=== PATIENT | male | born 1940 | race Caucasian/White ===

== ENCOUNTER 2017-04-26 19:02 | Observation (INO) | payer BC, OTHER ==
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
[2017-04-26 20:08] LABS: BASOPHIL 0.5 % (0-2.0); EOSINOPHIL 1.2 % (0-4.5); MCH 32.6 pg (25.7-33.7); MEAN CELL VOLUME 95.7 fl (80-96); MEAN PLT VOLUME 8.8 fl (7.5-11.1); NEUTROPHILS 59.3 % (42.8-82.8); PLATELET COUNT 147 K/MM3 (134-434); RDW 13.4 % (11.9-15.9)
[2017-04-26 20:22] LABS: INR 1.31 (0.82-1.09); PROTHROMBIN TIME (PATIENT) 14.5 SEC (9.98-11.88)
[2017-04-26 20:29] LABS: ALBUMIN 3.4 g/dl (3.4-5.0); ALK PHOS 69 U/L (45-117); ANION GAP 5 (8-16); BILIRUBIN,TOTAL 0.4 mg/dL (0.2-1.0); CALCIUM 8.8 mg/dL (8.5-10.1); CO2 30 mmol/L (21-32); CREATININE 1.1 mg/dL (0.7-1.3); GLUCOSE,RANDOM 122 mg/dL (74-106); SGOT/AST 16 U/L (15-37); SGPT/ALT 8 U/L (12-78); TOT PROT 6.8 g/dl (6.4-8.2)
[2017-04-26 20:44] LABS: URINE APPEARANCE CLEAR; URINE BILIRUBIN NEGATIVE (NEGATIVE); URINE BLOOD NEGATIVE (NEGATIVE); URINE COLOR YELLOW; URINE GLUCOSE (UA) NEGATIVE (NEGATIVE); URINE KETONE TRACE (NEGATIVE); URINE LEUK ESTERASE NEGATIVE (NEGATIVE); URINE NITRITE NEGATIVE (NEGATIVE); URINE PROTEIN NEGATIVE (NEGATIVE); URINE UROBILINOGEN NEGATIVE mg/dL (0.2-1.0)
[2017-04-26] MEDS ORDERED: SODIUM CHLORIDE 500 ML IV STA (21:13)
[2017-04-26] MEDS ORDERED: ENOXAPARIN NA (PORCINE) 60 MG/0.6 ML DISP.SYRIN SQ ONE (23:45)
[2017-04-26] MEDS ORDERED: ENOXAPARIN NA (PORCINE) 60 MG/0.6 ML DISP.SYRIN SQ SCH (23:45)
[2017-04-27] MEDS ORDERED: MECLIZINE HCL 12.5 MG TABLET PO PRN (00:19)
[2017-04-27] MEDS ORDERED: WARFARIN NA 1 MG TABLET (FP) PO ONE (00:19)
[2017-04-27] MEDS ORDERED: ENOXAPARIN NA (PORCINE) 60 MG/0.6 ML DISP.SYRIN SQ ONE (00:22)
[2017-04-27] MEDS ORDERED: WARFARIN NA 1 MG TABLET (FP) ONE (00:22)
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
[2017-04-27 01:51] VITALS: BMI 21.8
[2017-04-27] MEDS ORDERED: FLU VACCINE QUAD 60 MCG/0.5 ML (MDV 17-18) IM ONE (01:55)
[2017-04-27] MEDS: ACETAMINOPHEN 325 MG TABLET (FP) PO PRN (06:31)
[2017-04-27] MEDS: CARBIDOPA/LEVODOPA 25/100 TABLET (FP) PO SCH ×6 (06:31→21:56)
[2017-04-27 07:28] LABS: BASOPHIL 0.6 % (0-2.0); EOSINOPHIL 1.1 % (0-4.5); MCH 31.8 pg (25.7-33.7); MCHC 33.3 g/dl (32.0-35.9); MEAN CELL VOLUME 95.6 fl (80-96); MEAN PLT VOLUME 9.2 fl (7.5-11.1); NEUTROPHILS 63.6 % (42.8-82.8); PLATELET COUNT 158 K/MM3 (134-434); RDW 13.5 % (11.9-15.9); WHITE BLOOD COUNT 6.8 K/mm3 (4.0-10.0)
[2017-04-27 07:44] LABS: INR 1.22 (0.82-1.09); PROTHROMBIN TIME (PATIENT) 13.5 SEC (9.98-11.88)
[2017-04-27 08:14] LABS: ANION GAP 5 (8-16); CO2 29 mmol/L (21-32); CREATININE 0.9 mg/dL (0.7-1.3); GLUCOSE,RANDOM 99 mg/dL (74-106)
[2017-04-27] MEDS ORDERED: CARBIDOPA/LEVODOPA 25/100 TABLET (FP) PO SCH ×2 (10:00→22:00)
[2017-04-27] MEDS: LOSARTAN POTASSIUM 25 MG TABLET PO SCH (10:27)
[2017-04-27] MEDS: CARVEDILOL 3.125 MG TABLET (FP) PO SCH ×2 (10:27→21:55)
[2017-04-27] MEDS: ENOXAPARIN NA (PORCINE) 60 MG/0.6 ML DISP.SYRIN SQ SCH ×2 (10:27→21:54)
[2017-04-27] MEDS: FUROSEMIDE 40 MG TABLET (FP) PO SCH (10:27)
[2017-04-27] MEDS: clonazePAM 0.5 MG TABLET PO SCH (10:27)
[2017-04-27] MEDS ORDERED: PT OWN MED DRAWER 7, Y5N ONE (10:28)
--- NOTE | 2017-04-27 11:04 | EKG ---
Test Reason : Blood Pressure : / mmHG Vent. Rate : 061 BPM Atrial Rate : 061 BPM P-R Int : 188 ms QRS Dur : 078 ms QT Int : 444 ms P-R-T Axes : 073 037 064 degrees QTc Int : 446 ms Atrial-paced rhythm ANTEROSEPTAL INFARCT , AGE UNDETERMINED POOR R WAVE PROGRESSION ABNORMAL ECG NO PREVIOUS ECGS AVAILABLE Confirmed by TERRELL ROWLEY MD ([id number]) on 04/27/2017 11:04:31 AM Referred By: Confirmed By:TERRELL ROWLEY MD
[2017-04-27] MEDS: WARFARIN NA 2 MG TABLET (UD) PO SCH (17:58)
[2017-04-28] MEDS: CARBIDOPA/LEVODOPA 25/100 TABLET (FP) PO SCH ×5 (06:36→22:10)
[2017-04-28 08:32] LABS: INR 1.45 (0.82-1.09); PROTHROMBIN TIME (PATIENT) 16.1 SEC (9.98-11.88)
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
[2017-04-28] MEDS: clonazePAM 0.5 MG TABLET PO SCH (11:14)
[2017-04-28] MEDS: CARVEDILOL 3.125 MG TABLET (FP) PO SCH ×2 (11:14→22:11)
[2017-04-28] MEDS: FUROSEMIDE 40 MG TABLET (FP) PO SCH (11:14)
[2017-04-28] MEDS: ENOXAPARIN NA (PORCINE) 60 MG/0.6 ML DISP.SYRIN SQ SCH ×2 (11:14→22:10)
[2017-04-28] MEDS: LOSARTAN POTASSIUM 25 MG TABLET PO SCH (11:15)
[2017-04-28] MEDS: WARFARIN NA 2 MG TABLET (UD) PO SCH (18:49)
[2017-04-29] MEDS: CARBIDOPA/LEVODOPA 25/100 TABLET (FP) PO SCH ×5 (06:01→21:52)
[2017-04-29 07:20] LABS: INR 1.73 (0.82-1.09); PROTHROMBIN TIME (PATIENT) 19.3 SEC (9.98-11.88)
[2017-04-29] MEDS: clonazePAM 0.5 MG TABLET PO SCH (09:25)
[2017-04-29] MEDS: CARVEDILOL 3.125 MG TABLET (FP) PO SCH ×2 (09:25→21:52)
[2017-04-29] MEDS: ASCORBIC ACID 500 MG TABLET (FP) PO SCH (09:25)
[2017-04-29] MEDS: LOSARTAN POTASSIUM 25 MG TABLET PO SCH (09:25)
[2017-04-29] MEDS: FUROSEMIDE 40 MG TABLET (FP) PO SCH (09:26)
[2017-04-29] MEDS: MULTIVITAMINS (DAILY MVI) TABLET (FP) PO SCH (09:26)
[2017-04-29] MEDS: AMINO ACIDS/PROTEIN HYDROLYS 30 ML LIQUID.PKT PO SCH (09:26)
[2017-04-29] MEDS: ENOXAPARIN NA (PORCINE) 60 MG/0.6 ML DISP.SYRIN SQ SCH ×2 (10:15→21:53)
[2017-04-29] MEDS: WARFARIN NA 2 MG TABLET (UD) PO SCH (17:41)
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
[2017-04-30] MEDS: CARBIDOPA/LEVODOPA 25/100 TABLET (FP) PO SCH ×5 (06:29→21:44)
[2017-04-30 07:49] LABS: INR 2.22 (0.82-1.09); PROTHROMBIN TIME (PATIENT) 24.8 SEC (9.98-11.88)
[2017-04-30] MEDS: FUROSEMIDE 40 MG TABLET (FP) PO SCH (09:36)
[2017-04-30] MEDS: LOSARTAN POTASSIUM 25 MG TABLET PO SCH (09:36)
[2017-04-30] MEDS: clonazePAM 0.5 MG TABLET PO SCH (09:36)
[2017-04-30] MEDS: ASCORBIC ACID 500 MG TABLET (FP) PO SCH (09:36)
[2017-04-30] MEDS: MULTIVITAMINS (DAILY MVI) TABLET (FP) PO SCH (09:36)
[2017-04-30] MEDS: CARVEDILOL 3.125 MG TABLET (FP) PO SCH ×2 (09:37→21:44)
[2017-04-30] MEDS: AMINO ACIDS/PROTEIN HYDROLYS 30 ML LIQUID.PKT PO SCH (09:37)
[2017-04-30] MEDS: ENOXAPARIN NA (PORCINE) 60 MG/0.6 ML DISP.SYRIN SQ SCH ×2 (09:37→21:45)
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
[2017-04-30] MEDS: WARFARIN NA 2 MG TABLET (UD) PO SCH (18:15)
[2017-05-01] MEDS: CARBIDOPA/LEVODOPA 25/100 TABLET (FP) PO SCH ×5 (05:53→21:54)
[2017-05-01 08:00] LABS: INR 2.67 (0.82-1.09)
[2017-05-01] MEDS ORDERED: PT OWN MED DRAWER 7, Y5N ONE (10:33)
[2017-05-01] MEDS: CARVEDILOL 3.125 MG TABLET (FP) PO SCH ×2 (10:37→21:55)
[2017-05-01] MEDS: ASCORBIC ACID 500 MG TABLET (FP) PO SCH (10:37)
[2017-05-01] MEDS: FUROSEMIDE 40 MG TABLET (FP) PO SCH (10:38)
[2017-05-01] MEDS: MULTIVITAMINS (DAILY MVI) TABLET (FP) PO SCH (10:38)
[2017-05-01] MEDS: LOSARTAN POTASSIUM 25 MG TABLET PO SCH (10:38)
[2017-05-01] MEDS: AMINO ACIDS/PROTEIN HYDROLYS 30 ML LIQUID.PKT PO SCH (10:38)
[2017-05-01] MEDS: clonazePAM 0.5 MG TABLET PO SCH (10:38)
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
[2017-05-01] MEDS: WARFARIN NA 2 MG TABLET (UD) PO SCH (18:16)
[2017-05-02] MEDS: CARBIDOPA/LEVODOPA 25/100 TABLET (FP) PO SCH ×5 (05:52→22:53)
[2017-05-02 07:44] LABS: INR 2.35 (0.82-1.09); PROTHROMBIN TIME (PATIENT) 26.3 SEC (9.98-11.88)
[2017-05-02] MEDS: ASCORBIC ACID 500 MG TABLET (FP) PO SCH (09:43)
[2017-05-02] MEDS: MULTIVITAMINS (DAILY MVI) TABLET (FP) PO SCH (09:43)
[2017-05-02] MEDS: AMINO ACIDS/PROTEIN HYDROLYS 30 ML LIQUID.PKT PO SCH (09:43)
[2017-05-02] MEDS: FUROSEMIDE 40 MG TABLET (FP) PO SCH (09:43)
[2017-05-02] MEDS: clonazePAM 0.5 MG TABLET PO SCH (09:43)
[2017-05-02] MEDS: LOSARTAN POTASSIUM 25 MG TABLET PO SCH (09:43)
[2017-05-02] MEDS: CARVEDILOL 3.125 MG TABLET (FP) PO SCH ×2 (09:43→22:53)
[2017-05-02] MEDS: ACETAMINOPHEN 325 MG TABLET (FP) PO PRN (09:43)
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
[2017-05-02] MEDS ORDERED: PT OWN MED DRAWER 7, Y5N ONE (13:57)
[2017-05-02] MEDS: WARFARIN NA 2 MG TABLET (UD) PO SCH (17:50)
[2017-05-03] MEDS: CARBIDOPA/LEVODOPA 25/100 TABLET (FP) PO SCH ×5 (06:24→21:55)
[2017-05-03 07:06] LABS: INR 2.47 (0.82-1.09); PROTHROMBIN TIME (PATIENT) 27.7 SEC (9.98-11.88)
[2017-05-03] MEDS ORDERED: PT OWN MED DRAWER 7, Y5N ONE (08:57)
[2017-05-03] MEDS: AMINO ACIDS/PROTEIN HYDROLYS 30 ML LIQUID.PKT PO SCH (09:03)
[2017-05-03] MEDS: clonazePAM 0.5 MG TABLET PO SCH (09:03)
[2017-05-03] MEDS: LOSARTAN POTASSIUM 25 MG TABLET PO SCH (09:03)
[2017-05-03] MEDS: MULTIVITAMINS (DAILY MVI) TABLET (FP) PO SCH (09:03)
[2017-05-03] MEDS: ASCORBIC ACID 500 MG TABLET (FP) PO SCH (09:04)
[2017-05-03] MEDS: CARVEDILOL 3.125 MG TABLET (FP) PO SCH ×2 (09:04→21:55)
[2017-05-03] MEDS: FUROSEMIDE 40 MG TABLET (FP) PO SCH (09:04)
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
[2017-05-03] MEDS: WARFARIN NA 2 MG TABLET (UD) PO SCH (18:11)
[2017-05-04] MEDS: CARBIDOPA/LEVODOPA 25/100 TABLET (FP) PO SCH ×2 (06:23→09:53)
[2017-05-04 07:21] LABS: INR 2.44 (0.82-1.09); PROTHROMBIN TIME (PATIENT) 27.3 SEC (9.98-11.88)
[2017-05-04 07:31] LABS: ANION GAP 6 (8-16); CALCIUM 8.7 mg/dL (8.5-10.1); CO2 29 mmol/L (21-32); CREATININE 0.7 mg/dL (0.7-1.3); GLUCOSE,RANDOM 134 mg/dL (74-106)
[2017-05-04] MEDS: LOSARTAN POTASSIUM 25 MG TABLET PO SCH (09:51)
[2017-05-04] MEDS: AMINO ACIDS/PROTEIN HYDROLYS 30 ML LIQUID.PKT PO SCH (09:51)
[2017-05-04] MEDS: MULTIVITAMINS (DAILY MVI) TABLET (FP) PO SCH (09:51)
[2017-05-04] MEDS: FUROSEMIDE 40 MG TABLET (FP) PO SCH (09:51)
[2017-05-04] MEDS: clonazePAM 0.5 MG TABLET PO SCH (09:52)
[2017-05-04] MEDS: ASCORBIC ACID 500 MG TABLET (FP) PO SCH (09:52)
[2017-05-04] MEDS: CARVEDILOL 3.125 MG TABLET (FP) PO SCH (09:52)
--- NOTE | 2017-05-04 10:11 | DS ---
Physical Exam: SUBJECTIVE: Patient seen and examined OBJECTIVE: Vital Signs Period Temp Pulse Resp BP Sys/Lauren Pulse Ox Last 24 Hr 97.5 F-98.4 F 62-76 18-20 118-140/51-78 98-98 PHYSICAL EXAM GENERAL: The patient is awake, alert, and fully oriented, in no acute distress. HEAD: Normal with no signs of trauma. EYES: PERRL, extraocular movements intact, sclera anicteric, conjunctiva clear. ENT: Ears normal, nares patent, oropharynx clear without exudates, moist mucous membranes. NECK: Trachea midline, full range of motion, supple. LUNGS: Breath sounds equal, clear to auscultation bilaterally, no wheezes, no crackles, no accessory muscle use. HEART: Regular rate and rhythm, S1, S2 without murmur, rub or gallop. ABDOMEN: Soft, nontender, nondistended, normoactive bowel sounds, no guarding, no rebound, no hepatosplenomegaly, no masses. EXTREMITIES: 2+ pulses, warm, well-perfused, no edema. NEUROLOGICAL: Cranial nerves II through XII grossly intact. Normal speech, gait not observed. PSYCH: Normal mood, normal affect. SKIN: Warm, dry, normal turgor, no rashes or lesions noted. LABS Laboratory Results - last 24 hr 05/04/17 05/04/17 06:40 06:40 PT with INR 27.30 H INR 2.44 H Sodium 138 Potassium 4.2 Chloride 103 Carbon Dioxide 29 Anion Gap 6 L BUN 33 H Creatinine 0.7 D Random Glucose 134 H D Calcium 8.7 HOSPITAL COURSE: Date of Admission:04/26/17 Date of Discharge: 05/04/17 Discharge Summary Reason For Visit: PAIN Current Active Problems Dehydration (Acute) Parkinson disease (Acute) Subtherapeutic anticoagulation (Acute) Condition: Improved - Instructions Diet, Activity, Other Instructions: Please return to the ED with new, persistent, or worsening symptoms. Please follow-up with providers as indicated. Referrals: Harmeet Salter MD [Staff Physician] - (Please follow-up with Dr. Salter in 2 days to have your INR checked. It is VERY important you keep this appointment as you will need to continue Lovenox injections twice a day until your INR is therapeutic (between 2-3). ) Disposition: [facility]NS/HOME HEALTH CARE - Home Medications Comprehensive Discharge Medication List: Ambulatory Orders Clonazepam [Klonopin -] 0.5 mg PO DAILY 04/26/17 Amino Acids/Protein Hydrolys [Prosource No Carb Liquid Pkt] 30 ml PO DAILY #30 packet 04/28/17 Ascorbate Calcium [Vitamin C] 500 mg PO DAILY #30 tablet 04/28/17 Carbidopa/Levodopa *Cr* 50/200 [Sinemet *Cr* 50/200 -] 1 combo PO HS #30 tab 10/10 Carbidopa/Levodopa 25/100 [Sinemet 25/100 -] 1 each PO 0600,1000,1400,1800 #120 tablet 04/28/17 Carvedilol [Coreg -] 3.125 mg PO BID #60 tab 04/28/17 Enoxaparin [Lovenox -] 60 mg SQ BID #14 disp.syrin 04/28/17 Furosemide [Lasix -] 40 mg PO DAILY #30 tab 04/28/17 Lactose-Reduced Food [Ensure Enlive] 237 ml PO BID #60 liquid 04/28/17 Losartan Potassium [Cozaar] 25 mg PO DAILY #30 tab 04/28/17 Meclizine HCl 12.5 mg PO BID PRN #60 tab 04/28/17 Multivitamins [Multivit ([facility] Formulary)] 1 tab PO DAILY #30 tab 04/28/17 Warfarin Na [Coumadin -] 4 mg PO DAILY@1800 #60 tablet 04/28/17 - Discharge Referral Referred to [facility] No
[2017-05-04 13:08] VITALS: BP 105/55; PULSE 96; TEMP 98.1
== END 2017-05-04 13:40 ==
LOC: JER 19:02 → JERBED 23:53 → J5S 04-27 01:30
PROVIDERS: ADMIT Internal Medicine; ATTEND Registered Nurse
PROC: 3E013GC Introduction of Other Therapeutic Substance into Subcutaneous Tissue, Percutaneous Approach (ICD-10-PCS; principal; 2017-04-26)
PROC: 3E0337Z Introduction of Electrolytic and Water Balance Substance into Peripheral Vein, Percutaneous Approach (ICD-10-PCS; 2017-04-26)
DX: E86.0 Dehydration (principal); G20 Parkinson's disease; R79.1 Abnormal coagulation profile; I10 Essential (primary) hypertension; I48.91 Unspecified atrial fibrillation; I50.9 Heart failure, unspecified; R26.2 Difficulty in walking, not elsewhere classified; Z99.89 Dependence on other enabling machines and devices; Z95.0 Presence of cardiac pacemaker; Z79.01 Long term (current) use of anticoagulants; Z87.891 Personal history of nicotine dependence; Z91.14 Patient's other noncompliance with medication regimen; R79.89 Other specified abnormal findings of blood chemistry; L89.159 Pressure ulcer of sacral region, unspecified stage
CPT/HCPCS: 36415; 71010-TC; 80048; 80053; 81003; 85025; 85610; 93005; 93010; 96372; 97116-GP; 97162-GP; 99284-25; G0378

== ENCOUNTER 2018-02-09 17:38 | Inpatient (IN) | payer BC, OTHER ==
--- NOTE | 2018-02-09 20:20 | PDOC ---
History of Present Illness - General History Source: Patient, Sibling, Intermediate Records Exam Limitations: No Limitations - History of Present Illness Initial Comments: 02/09/18 21:03 The patient is a 77 year old male with past medical history of heart failure s/ p pacemaker, vertigo, parkinsons disease, and afib on Warfarin, HTN, CHF, arrhythmia s/p PPM presents to the emergency department from [facility] with altered mental status and lethargy. As per the NH, the patient was not himself today, states he usually eats, but today when he got up to eat he just went to his side. As per the brother, around 2:00 pm he went to visit the patient, who was unresponsive to the brothers call. At the ED, the patient is conversant, he was able to reports his past medical history, reports hx of parkinsons and pacemaker placement. As per the brother, the patient at baseline always eats, without trouble. Patient denies any pain, except the pain from the needle for blood draw. Allergies: NKDA Social history: Former smoker. Denies the use of alcohol or recreational drugs. Surgical history: PPM. PCP: Dr. Marco Antonio Ellison Santos (Brother) [phone] 02/09/18 23:44 <Kamilah Caldwell - Last Filed: 02/09/18 23:44> <Asya Brown - Last Filed: 02/10/18 00:54> <Niles Sarmiento - Last Filed: 02/10/18 17:26> - General Chief Complaint: Lethargy Stated Complaint: R/O SEPSIS,ALTERED MENTAL STATUS Time Seen by Provider: 02/09/18 18:32 Past History <Kamilah Caldwell - Last Filed: 02/09/18 23:44> - Past Medical History Cardiac Disorders: Yes (atrial fib) COPD: No CHF: Yes HTN: Yes Psychiatric Problems: Yes (anxiety) Other medical history: parkinson's,ascorbic acid deficiency,right shoulder - Surgical History Cardiac Surgery: Yes (pacemaker) - Suicide/Smoking/Psychosocial Hx Smoking History: Unknown if ever smoked Have you smoked in the past 12 months: No If you are a former smoker, when did you quit?: 50 years ago Information on smoking cessation initiated: No Hx Alcohol Use: No Drug/Substance Use Hx: No Substance Use Type: None <KevinAsya Shabana - Last Filed: 02/10/18 00:54> <Niles Sarmiento - Last Filed: 02/10/18 17:26> - Past Medical History Allergies/Adverse Reactions: Allergies Allergy/AdvReac Type Severity Reaction Status Date / Time No Known Allergies Allergy Verified 02/09/18 18:01 Home Medications: Ambulatory Orders clonazePAM [Klonopin -] 0.5 mg PO Q12H 04/26/17 Ascorbate Calcium [Vitamin C] 500 mg PO DAILY #30 tablet 04/28/17 Carbidopa/Levodopa *Cr* 50/200 [Sinemet *Cr* 50/200 -] 1 combo PO HS #30 tab 10/10 Losartan Potassium [Cozaar] 25 mg PO DAILY #30 tab 04/28/17 Multivitamins [Multivit ([facility])] 1 tab PO DAILY #30 tab 04/28/17 Acetaminophen 650 mg PO Q4H PRN 02/10/18 Carbidopa/Levodopa 25/100 [Sinemet 25/100 -] 2 each PO 0600,1000,1400,1800 02/10 Menthol [Bengay Ultra Strength] 1 each TP DAILY 02/10/18 Metoprolol Succinate 25 mg PO BID 02/10/18 Polyvinyl Alcohol [Artificial Tears] 1 drop OU BID 02/10/18 Warfarin Na [Coumadin -] 4 mg PO ASDIR 02/10/18 Warfarin Sodium [Coumadin] 4.5 mg PO ASDIR 02/10/18 Review of Systems - Review of Systems Able to Perform ROS?: Yes Comments:: 02/09/18 21:08 CONSTITUTIONAL: Absent: fever, chills, diaphoresis, generalized weakness, malaise, loss of appetite HEENT: Absent: rhinorrhea, nasal congestion, throat pain, throat swelling, difficulty swallowing, mouth swelling, ear pain, eye pain, visual Changes CARDIOVASCULAR: Absent: chest pain, syncope, palpitations, irregular heart rate, lightheadedness , peripheral edema RESPIRATORY: Absent: cough, shortness of breath, dyspnea with exertion, orthopnea, wheezing, stridor, hemoptysis GASTROINTESTINAL: Absent: abdominal pain, abdominal distension, nausea, vomiting, diarrhea, constipation, melena, hematochezia GENITOURINARY: Absent: dysuria, frequency, urgency, hesitancy, hematuria, flank pain, genital pain MUSCULOSKELETAL: Absent: myalgia, arthralgia, joint swelling EXTREMITY: (+) R. arm pain from the needle SKIN: Absent: rash, itching, pallor HEMATOLOGIC/IMMUNOLOGIC: Absent: easy bleeding, easy bruising, lymphadenopathy, frequent infections ENDOCRINE: Absent: unexplained weight gain, unexplained weight loss, heat intolerance, cold intolerance NEUROLOGIC: Absent: headache, focal weakness or paresthesias, dizziness, unsteady gait, seizure, mental status changes, bladder or bowel incontinence PSYCHIATRIC: Absent: anxiety, depression, suicidal or homicidal ideation, hallucinations <Kamilah Caldwell - Last Filed: 02/09/18 23:44> *Physical Exam - Vital Signs Last Vital Signs Temp Pulse Resp BP Pulse Ox 98.7 F 72 16 117/59 100 02/09/18 17:50 02/09/18 17:50 02/09/18 17:50 02/09/18 17:50 02/09/18 17:50 - Physical Exam Comments: 02/09/18 21:03 GENERAL: Well developed, well nourished. Awake and alert. No acute distress. HEENT: Normocephalic, atraumatic. PERRLA, EOMI. No conjunctival pallor. Sclera are non- icteric. Moist mucous membranes. Oropharynx is clear. NECK: Supple. Full ROM. No JVD. Carotid pulses 2+ and symmetric, without bruits. No thyromegaly. No lymphadenopathy. CARDIOVASCULAR: Regular rate and rhythm. No murmurs, rubs, or gallops. Distal pulses are 2+ and symmetric. PULMONARY: No evidence of respiratory distress. Lungs clear to auscultation bilaterally. No wheezing, rales or rhonchi. ABDOMINAL: Flat Soft. Non-tender. Non-distended. No rebound or guarding. No organomegaly. Normoactive bowel sounds. MUSCULOSKELETAL: Moving all extremity. Normal range of motion at all joints. No bony deformities or tenderness. No CVA tenderness. EXTREMITIES: No cyanosis. No clubbing. No edema. No calf tenderness. SKIN: Warm and dry. Normal capillary refill. No rashes. No jaundice. NEUROLOGICAL: L. Sided resting tremor. Alert X1, about to answer all question about his health. PSYCHIATRIC: Cooperative. Good eye contact. Appropriate mood and affect. <Kamilah Caldwell - Last Filed: 02/09/18 23:44> - Vital Signs Last Vital Signs Temp Pulse Resp BP Pulse Ox 98.7 F 72 16 117/59 100 02/09/18 17:50 02/09/18 17:50 02/09/18 17:50 02/09/18 17:50 02/09/18 17:50 <KevinAsya Shabana - Last Filed: 02/10/18 00:54> - Vital Signs Last Vital Signs Temp Pulse Resp BP Pulse Ox 97.8 F 153 H 18 150/98 100 02/10/18 06:54 02/10/18 09:30 02/10/18 09:30 02/10/18 09:30 02/10/18 09:30 <Niles Sarmiento - Last Filed: 02/10/18 17:26> ED Treatment Course - LABORATORY CBC & Chemistry Diagram: 02/09/18 19:35 02/09/18 19:35 - ADDITIONAL ORDERS Additional order review: Laboratory Results 02/09/18 02/09/18 02/09/18 20:35 19:35 19:35 PT with INR INR PTT (Actin FS) VBG pH 7.41 POC VBG pCO2 45.7 POC VBG pO2 31.4 Mixed VBG HCO3 28.4 H Sodium 141 Potassium 4.4 Chloride 107 Carbon Dioxide 29 Anion Gap 5 L BUN 28 H Creatinine 0.8 Creat Clearance w eGFR > 60 Random Glucose 123 H Lactic Acid Calcium 8.9 Total Bilirubin 0.5 AST 61 H D ALT 80 H D Alkaline Phosphatase 82 Total Protein 6.4 Albumin 3.4 Urine Color Ltyellow Urine Appearance Slcloudy Urine pH 6.0 Ur Specific [place] 1.011 Urine Protein Negative Urine Glucose (UA) Negative Urine Ketones Negative Urine Blood 1+ H Urine Nitrite Positive Urine Bilirubin Negative Urine Urobilinogen Negative Ur Leukocyte Esterase Trace Urine WBC (Auto) 5 Urine RBC (Auto) 2 Urine Bacteria Many Hyaline Casts 1 Urine Mucus Rare Urine Yeast Few 02/09/18 02/09/18 19:35 19:20 PT with INR 33.10 H INR 2.93 H PTT (Actin FS) 46.1 H VBG pH POC VBG pCO2 POC VBG pO2 Mixed VBG HCO3 Sodium Potassium Chloride Carbon Dioxide Anion Gap BUN Creatinine Creat Clearance w eGFR Random Glucose Lactic Acid 1.2 Calcium Total Bilirubin AST ALT Alkaline Phosphatase Total Protein Albumin Urine Color Urine Appearance Urine pH Ur Specific [place] Urine Protein Urine Glucose (UA) Urine Ketones Urine Blood Urine Nitrite Urine Bilirubin Urine Urobilinogen Ur Leukocyte Esterase Urine WBC (Auto) Urine RBC (Auto) Urine Bacteria Hyaline Casts Urine Mucus Urine Yeast 02/09/18 19:35 RBC 4.35 MCV 94.7 MCHC 33.4 RDW 13.9 MPV 8.9 Neutrophils % 59.4 Lymphocytes % 26.1 Monocytes % 13.0 H Eosinophils % 0.8 Basophils % 0.7 <Kamilah Caldwell - Last Filed: 02/09/18 23:44> - LABORATORY CBC & Chemistry Diagram: 02/09/18 19:35 02/09/18 19:35 - RADIOLOGY Radiology Studies Ordered: Category Date Time Status HEAD CT WITHOUT CONTRAST [CT] Stat CT Scan 02/09/18 19:09 Ordered CHEST X-RAY PORTABLE* [RAD] Stat Radiology 02/09/18 19:09 Ordered <Asya Brown - Last Filed: 02/10/18 00:54> - LABORATORY CBC & Chemistry Diagram: 02/10/18 07:48 02/10/18 07:48 - ADDITIONAL ORDERS Additional order review: 02/09/18 19:35 RBC 4.35 MCV 94.7 MCHC 33.4 RDW 13.9 MPV 8.9 Neutrophils % 59.4 Lymphocytes % 26.1 Monocytes % 13.0 H Eosinophils % 0.8 Basophils % 0.7 - Medications Given in the ED: ED Medications Discontinued Medications Generic Name Dose Route Start Last Admin Trade Name Maqruez PRN Reason Stop Dose Admin Carvedilol 3.125 mg 02/10/18 03:12 02/10/18 03:49 Coreg - PO 02/10/18 03:13 Not Given ONCE ONE Diltiazem HCl 10 mg 02/10/18 03:23 02/10/18 03:28 Cardizem Injection - IVPUSH 02/10/18 03:24 10 mg ONCE ONE Administration Diltiazem HCl 10 mg 02/10/18 03:41 02/10/18 03:48 Cardizem Injection - IVPUSH 02/10/18 03:42 10 mg ONCE ONE Administration Diltiazem HCl 10 mg 02/10/18 11:50 02/10/18 11:55 Cardizem Injection - IVPUSH 02/10/18 11:51 10 mg ONCE ONE Administration Levofloxacin 500 mg in 100 mls @ 100 mls/hr 02/09/18 22:00 02/09/18 22:20 Levaquin 500 Mg Premixed Ivpb - IVPB 02/09/18 22:59 100 mls/hr ONCE ONE Administration Protocol Sodium Chloride 1,000 mls @ 1,000 mls/hr 02/10/18 03:41 02/10/18 03:48 Normal Saline - IV 02/10/18 04:40 1,000 mls/hr ASDIR STA Administration Metoprolol Succinate 25 mg 02/10/18 10:00 02/10/18 07:15 Toprol Xl - PO 25 mg BID DAJA Administration Metoprolol Succinate 25 mg 02/10/18 16:42 02/10/18 12:00 Toprol Xl - PO 02/10/18 16:43 25 mg NOW ONE Administration <Niles Sarmiento - Last Filed: 02/10/18 17:26> Medical Decision Making - Medical Decision Making 02/10/18 17:26 Rohan Jorgensen - Brother Would like to be contacted regarding his brother. <Niles Sarmiento - Last Filed: 02/10/18 17:26> *DC/Admit/Observation/Transfer <Kamilah Caldwell - Last Filed: 02/09/18 23:44> - Discharge Dispostion Decision to Admit order: Yes <Asya Brown - Last Filed: 02/10/18 00:54> <Niles Sarmiento - Last Filed: 02/10/18 17:26> Diagnosis at time of Disposition: Parkinson disease, SVT (supraventricular tachycardia) UTI (urinary tract infection) Qualifiers: Urinary tract infection type: site unspecified Hematuria presence: without hematuria Qualified Code(s): N39.0 - Urinary tract infection, site not specified - Discharge Dispostion Condition at time of disposition: Stable
[2018-02-09 20:26] LABS: VENOUS PC02 45.7 mmHg (38-52); VENOUS PH 7.41 (7.32-7.42); VENOUS PO2 31.4 mmHg (28-48)
[2018-02-09 20:27] LABS: BASO % 0.7 % (0-2.0); EOS % 0.8 % (0-4.5); HEMATOCRIT 41.1 % (35.4-49); HEMOGLOBIN 13.7 GM/dL (11.7-16.9); LYMPH % 26.1 % (8-40); MCH 31.6 pg (25.7-33.7); MCHC 33.4 g/dl (32.0-35.9); MEAN CELL VOLUME 94.7 fl (80-96); MEAN PLT VOLUME 8.9 fl (7.5-11.1); NEUT % 59.4 % (42.8-82.8); PLATELET COUNT 184 K/MM3 (134-434); RBC 4.35 M/mm3 (4.00-5.60); RDW 13.9 % (11.9-15.9); WHITE BLOOD COUNT 5.1 K/mm3 (4.0-10.0)
[2018-02-09 20:40] LABS: INR 2.93 (0.82-1.09); PROTHROMBIN TIME (PATIENT) 33.1 SEC (9.7-13.0)
[2018-02-09 20:43] LABS: ACTIVATED PTT 46.1 SECONDS (25.2-36.5)
[2018-02-09 20:49] LABS: URINE APPEARANCE SLCLOUDY; URINE BILIRUBIN NEGATIVE (<2.0 mg/dL); URINE COLOR LTYELLOW; URINE GLUCOSE (UA) NEGATIVE (NEGATIVE); URINE KETONE NEGATIVE (NEGATIVE); URINE LEUK ESTERASE TRACE (NEGATIVE); URINE NITRITE POSITIVE (NEGATIVE); URINE PROTEIN NEGATIVE (NEGATIVE); URINE UROBILINOGEN NEGATIVE mg/dL (0.2-1.0)
[2018-02-09 20:54] LABS: ALBUMIN 3.4 g/dl (3.4-5.0); ALK PHOS 82 U/L (45-117); ANION GAP 5 (8-16); BILIRUBIN,TOTAL 0.5 mg/dL (0.2-1.0); BLOOD UREA NITROGEN 28 mg/dL (7-18); CALCIUM 8.9 mg/dL (8.5-10.1); CHLORIDE 107 mmol/L (98-107); CO2 29 mmol/L (21-32); CREATININE 0.8 mg/dL (0.7-1.3); GLUCOSE,RANDOM 123 mg/dL (74-106); POTASSIUM 4.4 mmol/L (3.5-5.1); SGOT/AST 61 U/L (15-37); SGPT/ALT 80 U/L (12-78); SODIUM 141 mmol/L (136-145); TOT PROT 6.4 g/dl (6.4-8.2)
[2018-02-09 20:57] LABS: URINE BACTERIA MANY /hpf (NONE SEEN); URINE HYALINE CAST 1 /lpf; URINE MUCUS RARE; YEAST FEW
[2018-02-10] MEDS ORDERED: CARVEDILOL 3.125 MG TABLET (FP) PO ONE (03:12)
[2018-02-10] MEDS ORDERED: dilTIAZem HCL 50 MG/10 ML - 10 ML VIAL IVPUSH ONE ×3 (03:23→11:50)
[2018-02-10] MEDS ORDERED: dilTIAZem HCL 50 MG/10 ML - 10 ML VIAL ONE (03:29)
[2018-02-10] MEDS ORDERED: SODIUM CHLORIDE 1,000 ML IV STA (03:41)
--- NOTE | 2018-02-10 03:42 | PDOC ---
*Physical Exam - Vital Signs Last Vital Signs Temp Pulse Resp BP Pulse Ox 97.6 F 156 H 20 105/56 96 02/10/18 03:25 02/10/18 03:25 02/10/18 03:25 02/10/18 03:25 02/10/18 03:25 ED Treatment Course - LABORATORY CBC & Chemistry Diagram: 02/09/18 19:35 02/09/18 19:35 - ADDITIONAL ORDERS Additional order review: Laboratory Results 02/09/18 02/09/18 02/09/18 20:35 19:35 19:35 PT with INR INR PTT (Actin FS) VBG pH POC VBG pCO2 POC VBG pO2 Mixed VBG HCO3 Sodium 141 Potassium 4.4 Chloride 107 Carbon Dioxide 29 Anion Gap 5 L BUN 28 H Creatinine 0.8 Creat Clearance w eGFR > 60 Random Glucose 123 H Lactic Acid Calcium 8.9 Total Bilirubin 0.5 AST 61 H D ALT 80 H D Alkaline Phosphatase 82 Troponin I 0.05 Total Protein 6.4 Albumin 3.4 Urine Color Ltyellow Urine Appearance Slcloudy Urine pH 6.0 Ur Specific [place] 1.011 Urine Protein Negative Urine Glucose (UA) Negative Urine Ketones Negative Urine Blood 1+ H Urine Nitrite Positive Urine Bilirubin Negative Urine Urobilinogen Negative Ur Leukocyte Esterase Trace Urine WBC (Auto) 5 Urine RBC (Auto) 2 Urine Bacteria Many Hyaline Casts 1 Urine Mucus Rare Urine Yeast Few 02/09/18 02/09/18 02/09/18 19:35 19:35 19:20 PT with INR 33.10 H INR 2.93 H PTT (Actin FS) 46.1 H VBG pH 7.41 POC VBG pCO2 45.7 POC VBG pO2 31.4 Mixed VBG HCO3 28.4 H Sodium Potassium Chloride Carbon Dioxide Anion Gap BUN Creatinine Creat Clearance w eGFR Random Glucose Lactic Acid 1.2 Calcium Total Bilirubin AST ALT Alkaline Phosphatase Troponin I Total Protein Albumin Urine Color Urine Appearance Urine pH Ur Specific [place] Urine Protein Urine Glucose (UA) Urine Ketones Urine Blood Urine Nitrite Urine Bilirubin Urine Urobilinogen Ur Leukocyte Esterase Urine WBC (Auto) Urine RBC (Auto) Urine Bacteria Hyaline Casts Urine Mucus Urine Yeast 02/09/18 19:35 RBC 4.35 MCV 94.7 MCHC 33.4 RDW 13.9 MPV 8.9 Neutrophils % 59.4 Lymphocytes % 26.1 Monocytes % 13.0 H Eosinophils % 0.8 Basophils % 0.7 - Medications Given in the ED: ED Medications Discontinued Medications Generic Name Dose Route Start Last Admin Trade Name Marquez PRN Reason Stop Dose Admin Levofloxacin 500 mg in 100 mls @ 100 mls/hr 02/09/18 22:00 02/09/18 22:20 Levaquin 500 Mg Premixed Ivpb - IVPB 02/09/18 22:59 100 mls/hr ONCE ONE Administration Protocol Medical Decision Making - Medical Decision Making 02/10/18 03:47 Informed that pt suddenly developed heart rate of 140's- 150's. Pt given Cardizem 20mg and rate was controlled. Admission changed to Tele Obs. *DC/Admit/Observation/Transfer Diagnosis at time of Disposition: Parkinson disease, SVT (supraventricular tachycardia) UTI (urinary tract infection) Qualifiers: Urinary tract infection type: site unspecified Hematuria presence: without hematuria Qualified Code(s): N39.0 - Urinary tract infection, site not specified - Discharge Dispostion Condition at time of disposition: Stable Decision to Admit order: Yes - Prescriptions - Referrals - Patient Instructions - Post Discharge Activity
--- NOTE | 2018-02-10 05:15 | HP ---
CHIEF COMPLAINT: altered mental status PCP: Jazmin HISTORY OF PRESENT ILLNESS: This is a 77 year old female with a past medical history of Afib, HTN, CHF, PPM , parkinson's disease, axiety who presented to the ED s/p altered mental status. Staff at [facility] reported pt was not his usual self. He did not eat his meals today (he typically feeds himself) and did not respond when his brother called today. Upon arrival to the ED, pt was conversant and alert. Upon my exam pt is also conversant and alert. ER course was notable for: (1) Episode afib with RVR, tx with cardizem (2) u/a with 5 WBC, + nitrates, trace leuk esterase Recent Travel: pt denies PAST MEDICAL HISTORY: CHF, HTN, Afib, vertigo, anxiety, Parkinson's disease PAST SURGICAL HISTORY: PPM/AICD Social History: Smoking: quit 50+ years ago Alcohol: pt denies Drugs: pt denies Allergies No Known Allergies Allergy (Verified 02/09/18 18:01) HOME MEDICATIONS: 3 Medication Instructions Recorded clonazePAM [Klonopin -] 0.5 mg PO Q12H 04/26/17 Ascorbate Calcium [Vitamin C] 500 mg PO DAILY #30 tablet 04/28/17 Carbidopa/Levodopa *Cr* 50/200 1 combo PO HS #30 tab 04/28/17 [Sinemet *Cr* 50/200 -] Losartan Potassium [Cozaar] 25 mg PO DAILY #30 tab 04/28/17 Multivitamins [Multivit ([facility] 1 tab PO DAILY #30 tab 04/28/17 Formulary)] Acetaminophen 650 mg PO Q4H PRN 02/10/18 Carbidopa/Levodopa 25/100 [Sinemet 2 each PO 0600,1000,1400,1800 02/10/18 25/100 -] Menthol [Bengay Ultra Strength] 1 each TP DAILY 02/10/18 Metoprolol Succinate 25 mg PO BID 02/10/18 Polyvinyl Alcohol [Artificial 1 drop OU BID 02/10/18 Tears] Warfarin Na [Coumadin -] 4 mg PO ASDIR 02/10/18 Warfarin Sodium [Coumadin] 4.5 mg PO ASDIR 02/10/18 REVIEW OF SYSTEMS CONSTITUTIONAL: Present: malaise, loss of appetite Absent: fever, chills, diaphoresis, generalized weakness, weight change HEENT: Absent: rhinorrhea, nasal congestion, throat pain, throat swelling, difficulty swallowing, mouth swelling, ear pain, eye pain, visual changes CARDIOVASCULAR: Absent: chest pain, syncope, palpitations, irregular heart rate, lightheadedness , peripheral edema RESPIRATORY: Absent: cough, shortness of breath, dyspnea with exertion, orthopnea, wheezing, stridor, hemoptysis GASTROINTESTINAL: Absent: abdominal pain, abdominal distension, nausea, vomiting, diarrhea, constipation, melena, hematochezia GENITOURINARY: Absent: dysuria, frequency, urgency, hesitancy, hematuria, flank pain, genital pain MUSCULOSKELETAL: Absent: myalgia, arthralgia, joint swelling, back pain, neck pain SKIN: Absent: rash, itching, pallor HEMATOLOGIC/IMMUNOLOGIC: Absent: easy bleeding, easy bruising, lymphadenopathy, frequent infections ENDOCRINE: Absent: unexplained weight gain, unexplained weight loss, heat intolerance, cold intolerance NEUROLOGIC: Present: mental status changes Absent: headache, focal weakness or paresthesias, dizziness, unsteady gait, seizure, bladder or bowel incontinence PSYCHIATRIC: Absent: anxiety, depression, suicidal or homicidal ideation, hallucinations. PHYSICAL EXAMINATION Vital Signs - 24 hr 3 02/09/18 02/10/18 17:50 03:25 Temperature 98.7 F 97.6 F Pulse Rate 72 Pulse Rate [ 156 H Right] Respiratory 16 20 Rate Blood Pressure 117/59 Blood Pressure 105/56 [Right Arm] O2 Sat by Pulse 100 96 Oximetry (%) GENERAL: Awake, alert, and oriented to person and place (hospital), in no acute distress. HEAD: Normal with no signs of trauma. EYES: Pupils equal, round and reactive to light, extraocular movements intact, sclera anicteric, conjunctiva clear. No lid lag. EARS, NOSE, THROAT: Ears normal, nares patent, oropharynx clear without exudates. Moist mucous membranes. NECK: Normal range of motion, supple without lymphadenopathy, JVD, or masses. LUNGS: Breath sounds equal, clear to auscultation bilaterally. No wheezes. No accessory muscle use. + crackles bilat bases HEART: Regular rate and rhythm, normal S1 and S2 without murmur, rub or gallop. ABDOMEN: Soft, nontender, not distended, normoactive bowel sounds, no guarding, no rebound, no masses. No hepatomegaly or splenomegaly. MUSCULOSKELETAL: Normal range of motion at all joints. No bony deformities or tenderness. No CVA tenderness. UPPER EXTREMITIES: 2+ pulses, warm, well-perfused. No cyanosis. No clubbing. No peripheral edema. LOWER EXTREMITIES: 2+ pulses, warm, well-perfused. No calf tenderness. No peripheral edema. NEUROLOGICAL: Cranial nerves II-XII intact. Normal speech. Normal gait. PSYCHIATRIC: Cooperative. Good eye contact. Appropriate mood and affect. SKIN: Warm, dry, normal turgor, no rashes or lesions noted, normal capillary refill. Laboratory Results - last 24 hr 3 02/09/18 02/09/18 02/09/18 19:20 19:35 19:35 WBC 5.1 RBC 4.35 Hgb 13.7 Hct 41.1 MCV 94.7 MCH 31.6 MCHC 33.4 RDW 13.9 Plt Count 184 MPV 8.9 Absolute Neuts (auto) 3.0 Neutrophils % 59.4 Lymphocytes % 26.1 Monocytes % 13.0 H Eosinophils % 0.8 Basophils % 0.7 Nucleated RBC % 0 PT with INR 33.10 H INR 2.93 H PTT (Actin FS) 46.1 H VBG pH POC VBG pCO2 POC VBG pO2 Mixed VBG HCO3 Sodium Potassium Chloride Carbon Dioxide Anion Gap BUN Creatinine Creat Clearance w eGFR Random Glucose Lactic Acid 1.2 Calcium Total Bilirubin AST ALT Alkaline Phosphatase Troponin I Total Protein Albumin Urine Color Urine Appearance Urine pH Ur Specific [place] Urine Protein Urine Glucose (UA) Urine Ketones Urine Blood Urine Nitrite Urine Bilirubin Urine Urobilinogen Ur Leukocyte Esterase Urine WBC (Auto) Urine RBC (Auto) Urine Bacteria Hyaline Casts Urine Mucus Urine Yeast 3 02/09/18 02/09/18 02/09/18 19:35 19:35 19:35 WBC RBC Hgb Hct MCV MCH MCHC RDW Plt Count MPV Absolute Neuts (auto) Neutrophils % Lymphocytes % Monocytes % Eosinophils % Basophils % Nucleated RBC % PT with INR INR PTT (Actin FS) VBG pH 7.41 POC VBG pCO2 45.7 POC VBG pO2 31.4 Mixed VBG HCO3 28.4 H Sodium 141 Potassium 4.4 Chloride 107 Carbon Dioxide 29 Anion Gap 5 L BUN 28 H Creatinine 0.8 Creat Clearance w eGFR > 60 Random Glucose 123 H Lactic Acid Calcium 8.9 Total Bilirubin 0.5 AST 61 H D ALT 80 H D Alkaline Phosphatase 82 Troponin I 0.05 Total Protein 6.4 Albumin 3.4 Urine Color Urine Appearance Urine pH Ur Specific [place] Urine Protein Urine Glucose (UA) Urine Ketones Urine Blood Urine Nitrite Urine Bilirubin Urine Urobilinogen Ur Leukocyte Esterase Urine WBC (Auto) Urine RBC (Auto) Urine Bacteria Hyaline Casts Urine Mucus Urine Yeast 3 Urine Color Ltyellow 02/09/18 20:35 Urine Appearance Slcloudy 02/09/18 20:35 Urine pH 6.0 (5.0-8.0) 02/09/18 20:35 Ur Specific [place] 1.011 (1.001-1.035) 02/09/18 20:35 Urine Protein Negative (NEGATIVE) 02/09/18 20:35 Urine Glucose (UA) Negative (NEGATIVE) 02/09/18 20:35 Urine Ketones Negative (NEGATIVE) 02/09/18 20:35 Urine Blood 1+ (NEGATIVE) H 02/09/18 20:35 Urine Nitrite Positive (NEGATIVE) 02/09/18 20:35 Urine Bilirubin Negative (<2.0 mg/dL) 02/09/18 20:35 Urine Urobilinogen Negative 02/09/18 20:35 Ur Leukocyte Esterase Trace (NEGATIVE) 02/09/18 20:35 Urine WBC (Auto) 5 02/09/18 20:35 Urine RBC (Auto) 2 02/09/18 20:35 Urine Bacteria Many /hpf (NONE SEEN) 02/09/18 20:35 Urine Mucus Rare 02/09/18 20:35 Urine Yeast Few 02/09/18 20:35 ECG 02/10/18 03:14 Afib with RVR Vent rate 158, QTC [address]/T wave changes 02/10/18 03:44 Afib with RVR vent rate 142, QTC [address]/T wave changes Radiology Reports CT head Impression: No CT evidence of acute intracranial pathology. Reported By: Vazquez Caraballo MD 02/09/18 6503 ASSESSMENT/PLAN: 77yM with PMH CHF, HTN, Afib, vertigo, anxiety, Parkinson's disease presented to the ED with AMS. UTI - given levaquin in ED - will cont with ceftriaxone 1g HS, change to po upon dc Afib with RVR - pt missed one dose toprol, possibly am dose? - converted to sinus after 2 doses cardizem 10mg IV but returns to afib with RVR with slightest activity (sitting up in bed) - cont home toprol - monitor on telemetry - can give IV metoprolol if recurs and persistent - cont home warfarin HTN/CHF - crackles bilat bases, likely due to liter NS given, hold on lasix for now, BUN 28, monitor respiratory status - cont toprol and losartan Parkinson's Disease - cont home meds DVT PPX - cont home warfarin FEN - tolerating po - BMP in am - low sodium diet as tolerated Dispo: pt currently requires further observation. Visit type - Emergency Visit Emergency Visit: Yes ED Registration Date: 02/09/18 Care time: The patient presented to the Emergency Department on the above date and was hospitalized for further evaluation of their emergent condition. - New Patient This patient is new to me today: Yes Date on this admission: 02/10/18 - Critical Care Critical Care patient: No Hospitalist Screening - Colonoscopy Questionnaire Colonoscopy Questionnaire: Colonoscopy Questionnaire - Patient: 50 - 75 years old and never had a screening colonoscopy: No History of colon or rectal polyps, or CA: No History of IBD, Crohn's disease or UC: No History of abdominal radiation therapy as a child: No - Relative: 1 with colon or rectal CA, or polyps at age 60 or younger: Unknown Colon or rectal CA diagnosed at age 45 or younger: Unknown Multiple relatives with colon or rectal CA: Unknown - Outcome: Screening Result: Negative Screen
[2018-02-10] MEDS: clonazePAM 0.5 MG TABLET PO SCH ×2 (05:45→17:44)
[2018-02-10] MEDS ORDERED: clonazePAM 0.5 MG TABLET ONE ×2 (05:53→19:07)
[2018-02-10] MEDS: CARBIDOPA/LEVODOPA 25/100 TABLET (FP) PO SCH ×4 (06:14→18:18)
[2018-02-10] MEDS ORDERED: CARBIDOPA/LEVODOPA 25/100 TABLET (FP) ONE (06:17)
[2018-02-10] MEDS: metoPROLOL SUCCINATE 25 MG TAB.SR.24H (FP) PO SCH ×2 (07:15→11:10)
[2018-02-10 08:11] LABS: BASO % 0.5 % (0-2.0); EOS % 0.5 % (0-4.5); HEMATOCRIT 37.1 % (35.4-49); HEMOGLOBIN 12.5 GM/dL (11.7-16.9); LYMPH % 11.4 % (8-40); MCH 32.1 pg (25.7-33.7); MCHC 33.9 g/dl (32.0-35.9); MEAN CELL VOLUME 94.9 fl (80-96); MEAN PLT VOLUME 8.7 fl (7.5-11.1); NEUT % 77.6 % (42.8-82.8); PLATELET COUNT 141 K/MM3 (134-434); RDW 13.8 % (11.9-15.9); WHITE BLOOD COUNT 5.7 K/mm3 (4.0-10.0)
[2018-02-10 08:25] LABS: ANION GAP 6 (8-16); BLOOD UREA NITROGEN 24 mg/dL (7-18); CALCIUM 8.2 mg/dL (8.5-10.1); CHLORIDE 109 mmol/L (98-107); CO2 27 mmol/L (21-32); CREATININE 0.9 mg/dL (0.7-1.3); GLUCOSE,RANDOM 95 mg/dL (74-106); PHOSPHOROUS 2.4 mg/dL (2.5-4.9); POTASSIUM 4.4 mmol/L (3.5-5.1); SODIUM 142 mmol/L (136-145)
--- NOTE | 2018-02-10 08:59 | CON.CARD ---
Consult Consult Specialty:: Cardiology Referred by:: Young Reason for Consultation:: atrial fibrillation - History of Present Illness Chief Complaint: altered mental status History of Present Illness: 77F h/o afib, HTN, CHF EF 15-20% s/p ICD parkinson's disease presented with altered mental status. In ER had episode of afib with RVR rates to 150s, improved with cardizem, and started on abx for UTI. Feels well this morning. No cp, dizziness, lightheadedness, palpitations. Prior patient of Dr. 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 Cardio/Vascular: Yes: AFIB, CHF - Past Surgical History Past Surgical History: Yes: AICD - Alcohol/Substance Use Hx Alcohol Use: No - Smoking History Smoking history: Unknown if ever smoked Have you smoked in the past 12 months: No If you are a former smoker, when did you quit?: 50 years ago Home Medications - Allergies Allergies/Adverse Reactions: Allergies Allergy/AdvReac Type Severity Reaction Status Date / Time No Known Allergies Allergy Verified 02/09/18 18:01 - Home Medications Home Medications: Ambulatory Orders clonazePAM [Klonopin -] 0.5 mg PO Q12H 04/26/17 Ascorbate Calcium [Vitamin C] 500 mg PO DAILY #30 tablet 04/28/17 Carbidopa/Levodopa *Cr* 50/200 [Sinemet *Cr* 50/200 -] 1 combo PO HS #30 tab 10/10 Losartan Potassium [Cozaar] 25 mg PO DAILY #30 tab 04/28/17 Multivitamins [Multivit ([facility] Formulary)] 1 tab PO DAILY #30 tab 04/28/17 Acetaminophen 650 mg PO Q4H PRN 02/10/18 Carbidopa/Levodopa 25/100 [Sinemet 25/100 -] 2 each PO 0600,1000,1400,1800 02/10 Menthol [Bengay Ultra Strength] 1 each TP DAILY 02/10/18 Metoprolol Succinate 25 mg PO BID 02/10/18 Polyvinyl Alcohol [Artificial Tears] 1 drop OU BID 02/10/18 Warfarin Na [Coumadin -] 4 mg PO ASDIR 02/10/18 Warfarin Sodium [Coumadin] 4.5 mg PO ASDIR 07/18/18 Review of Systems - Review of Systems Constitutional: reports: Lethargy Eyes: reports: No Symptoms HENT: reports: No Symptoms Neck: reports: No Symptoms Cardiovascular: reports: No Symptoms Respiratory: reports: No Symptoms Gastrointestinal: reports: No Symptoms Musculoskeletal: reports: No Symptoms Neurological: reports: No Symptoms Endocrine: reports: No Symptoms Hematology/Lymphatic: reports: No Symptoms Psychiatric: reports: No Symptoms Vital Signs: Vital Signs Temperature 97.8 F 02/10/18 06:54 Pulse Rate 150 H 02/10/18 08:15 Respiratory Rate 16 02/10/18 08:15 Blood Pressure 144/85 02/10/18 08:15 O2 Sat by Pulse Oximetry (%) 100 02/10/18 08:15 Constitutional: Yes: Well Nourished, No Distress Eyes: Yes: Conjunctiva Clear, EOM Intact HENT: Yes: Atraumatic, Normocephalic Neck: Yes: Supple Respiratory: Yes: CTA Bilaterally Gastrointestinal: Yes: Soft Cardiovascular: Yes: Pulse Irregular JVD: No Carotid Bruit: No PMI: Non-Displaced Musculoskeletal: Yes: WNL Edema: No Neurological: Yes: Alert, Oriented Psychiatric: Yes: Alert, Oriented - Other Data Labs, Other Data: CBC, BMP 02/10/18 07:48 02/10/18 07:48 INR, PTT INR 2.93 (0.82-1.09) H 02/09/18 19:35 Troponin, BNP 02/09/18 02/10/18 19:35 05:50 Troponin I 0.05 0.04 Troponin, BNP 02/09/18 02/10/18 19:35 05:50 Troponin I 0.05 0.04 echo 09/2017 EF 15-25% (beat to beat variability), tds for rwma but global HK with additional AKof basal-distal inf and inflat restrepo. ppm septal motion, nl rv , 1+monique, mild to mod ecc AR, 1+ MR, mod TR with at least mod phtn. suboptimal ivc views, but appears small trivial pericardial effusion arterial dopplers 07/2016 (from [place]) wnl 02/10/18 atrial fibrillation rate 124 bpm, no ischemic changes Ejection Fraction %: LVEF < 40 % (tele: atrial fibrillation, PVCs, rate 60s-70s) Imaging - Results Chest X-ray: Report Reviewed Cat Scan: Report Reviewed Problem List - Problems (1) Afib Code(s): I48.91 - UNSPECIFIED ATRIAL FIBRILLATION Qualifiers: Atrial fibrillation type: chronic Qualified Code(s): I48.2 - Chronic atrial fibrillation (2) CHF (congestive heart failure) Code(s): I50.9 - HEART FAILURE, UNSPECIFIED Qualifiers: Heart failure chronicity: chronic (3) Pacemaker Code(s): Z95.0 - PRESENCE OF CARDIAC PACEMAKER (4) UTI (urinary tract infection) Code(s): N39.0 - URINARY TRACT INFECTION, SITE NOT SPECIFIED Qualifiers: Urinary tract infection type: site unspecified Hematuria presence: without hematuria Qualified Code(s): N39.0 - Urinary tract infection, site not specified (5) Parkinson disease Code(s): G20 - PARKINSON'S DISEASE Assessment/Plan altered mental status, UTI - antibiotics per primary team - mental status appears improved this morning afib - initially presented with rapid rate, improved rate control after giving cardizem, had missed a dose of toprol at home - continue toprol 25 mg BID, may need to uptitrate for improved rate control, monitor on tele - on coumadin, monitor INR chronic systolic heart failure/ICD - euvolemic on exam today - EF 15-20% from clinic notes - continue losartan, metoprolol history of PAD - s/p angioplasty 03/2016 - denies claudication, continue statin, warfarin parkinson's disease - on home meds
[2018-02-10] MEDS: ARTIFICIAL TEARS (POLYVINYL ALCOHOL 1.4%) OPTH DROPS OU SCH ×2 (10:00→23:10)
[2018-02-10] MEDS: METHYL SALICYLATE/MENTHOL OINT 30 GM TUBE TP SCH (10:00)
[2018-02-10] MEDS: LOSARTAN POTASSIUM 25 MG TABLET PO SCH (10:00)
--- NOTE | 2018-02-10 10:01 | PN ---
Progress Note, Physician Chief Complaint: Pt lying in bed in no acute distress. Pt conversive, alert and orientedx3. Denies any chest pain/discomfort, sob, n/v/d - Current Medication List Current Medications: Active Medications Artificial Tears (Artificial Tears) 1 drop OU BID [facility] Ascorbic Acid (Vitamin C -) 500 mg PO DAILY [facility] Carbidopa/Levodopa (Sinemet *Cr* 50/200 -) 1 combo PO HS [facility]JA Carbidopa/Levodopa (Sinemet 25/100 -) 2 each PO 0600,1000,1400,1800 [facility] Last Admin: 02/10/18 06:14 Dose: 2 each Clonazepam (Klonopin -) 0.5 mg PO Q12H [facility]JA Last Admin: 02/10/18 05:45 Dose: 0.5 mg Ceftriaxone Sodium 1 gm/ (Dextrose) 100 mls @ 200 mls/hr IVPB HS [facility]; Protocol Losartan Potassium (Cozaar -) 25 mg PO DAILY [facility] Methyl Salicylate (Marcel-Naranjo -) 1 applic TP DAILY [facility] Metoprolol Succinate (Toprol Xl -) 25 mg PO BID [facility] Multivitamins/Minerals/Vitamin C (Tab-A-Vit -) 1 tab PO DAILY [facility] Warfarin Sodium (Coumadin -) 4 mg PO MoTuWeTh@1800 [facility] Warfarin Sodium 2.5 mg/ (Warfarin Sodium 2 mg) 4.5 mg PO SuFrSa@1800 [facility] - Objective Vital Signs: Vital Signs Temperature 97.8 F 02/10/18 06:54 Pulse Rate 150 H 02/10/18 08:15 Respiratory Rate 16 02/10/18 08:15 Blood Pressure 144/85 02/10/18 08:15 O2 Sat by Pulse Oximetry (%) 100 02/10/18 08:15 Constitutional: Yes: Well Nourished, No Distress, Calm Cardiovascular: Yes: Pulse Irregular. No: Murmur, Rub Respiratory: Yes: WNL, Regular, CTA Bilaterally. No: Rales, SOB, Tachypnea, Wheezes Gastrointestinal: Yes: WNL, Normal Bowel Sounds, Soft. No: Distention, Tenderness Edema: No Neurological: Yes: WNL, Alert, Oriented Psychiatric: Yes: WNL, Alert, Oriented Labs: CBC, BMP 02/10/18 07:48 02/10/18 07:48 INR, PTT INR 2.93 (0.82-1.09) H 02/09/18 19:35 Problem List - Problems (1) UTI (urinary tract infection) Assessment/Plan: UA+,UC pending per records- altered mental status at SNF IV antibx day 2 continue ceftriaxone, change to po upon d/c Code(s): N39.0 - URINARY TRACT INFECTION, SITE NOT SPECIFIED Qualifiers: Urinary tract infection type: site unspecified Hematuria presence: without hematuria Qualified Code(s): N39.0 - Urinary tract infection, site not specified (2) Atrial fibrillation with RVR Assessment/Plan: episode of afib w/ rvr 150s in ED, resolved after cardizem subsequent episode this am, which also resolved rate controlled now metoprolol increased tele monitor cardiology following Code(s): I48.91 - UNSPECIFIED ATRIAL FIBRILLATION (3) Afib Assessment/Plan: s/p ppm INR mildly supratherapeutic hold coumadin continue metoprolol monitor Code(s): I48.91 - UNSPECIFIED ATRIAL FIBRILLATION Qualifiers: Atrial fibrillation type: chronic Qualified Code(s): I48.2 - Chronic atrial fibrillation (4) Subtherapeutic anticoagulation Assessment/Plan: as above Code(s): Z51.81 - ENCOUNTER FOR THERAPEUTIC DRUG LEVEL MONITORING; Z79.01 - LONGTERM (CURRENT) USE OF ANTICOAGULANTS (5) Parkinson disease Assessment/Plan: chronic continue sinemet Code(s): G20 - PARKINSON'S DISEASE (6) HTN (hypertension) Assessment/Plan: controlled continue current regimen Code(s): I10 - ESSENTIAL (PRIMARY) HYPERTENSION Qualifiers: Hypertension type: essential hypertension Qualified Code(s): I10 - Essential (primary) hypertension (7) CHF (congestive heart failure) Assessment/Plan: chronic, systolic, s/p ICD euvolemic continue current management cardiology following Code(s): I50.9 - HEART FAILURE, UNSPECIFIED Qualifiers: Heart failure type: systolic Heart failure chronicity: chronic Qualified Code(s): I50.22 - Chronic systolic (congestive) heart failure
[2018-02-10 10:32] LABS: INR 3.42 (0.82-1.09); PROTHROMBIN TIME (PATIENT) 38.7 SEC (9.7-13.0)
[2018-02-10] MEDS: MULTIVITAMINS (DAILY MVI) TABLET (FP) PO SCH (10:58)
[2018-02-10] MEDS: ASCORBIC ACID 500 MG TABLET (FP) PO SCH (10:59)
--- NOTE | 2018-02-10 11:40 | EKG ---
Test Reason : Blood Pressure : / mmHG Vent. Rate : 124 BPM Atrial Rate : 131 BPM P-R Int : 000 ms QRS Dur : 076 ms QT Int : 272 ms P-R-T Axes : 000 060 135 degrees QTc Int : 390 ms POOR DATA QUALITY, INTERPRETATION MAY BE ADVERSELY AFFECTED Suspect unspecified pacemaker failure ATRIAL FIBRILLATION WITH RAPID VENTRICULAR RESPONSE WITH PREMATURE VENTRICULAR OR ABERRANTLY CONDUCTED COMPLEXES ANTERIOR INFARCT (CITED ON OR BEFORE 10-FEB-2018) ABNORMAL ECG WHEN COMPARED WITH ECG OF 10-FEB-2018 03:44, PREVIOUS ECG HAS UNDETERMINED RHYTHM, NEEDS REVIEW ST ELEVATION NOW PRESENT IN INFERIOR LEADS Confirmed by RAVEN BERMUDEZ, BOY ([id number]) on 02/10/2018 11:39:58 AM Referred By: Confirmed By:BOY CARBAJAL MD
--- NOTE | 2018-02-10 11:46 | EKG ---
Test Reason : Blood Pressure : / mmHG Vent. Rate : 062 BPM Atrial Rate : 062 BPM P-R Int : 190 ms QRS Dur : 090 ms QT Int : 432 ms P-R-T Axes : 083 074 061 degrees QTc Int : 438 ms Atrial-paced rhythm WITH OCCASIONAL sinus complexes MINIMAL VOLTAGE CRITERIA FOR LVH, MAY BE NORMAL VARIANT ABNORMAL ECG WHEN COMPARED WITH ECG OF 26-APR-2017 20:12, CRITERIA FOR ANTEROSEPTAL INFARCT ARE NO LONGER PRESENT Confirmed by RAVEN BERMUDEZ, BOY ([id number]) on 02/10/2018 11:45:40 AM Referred By: Confirmed By:BOY CARBAJAL MD
[2018-02-10] MEDS ORDERED: dilTIAZem HCL 125 MG/25 ML - 25 ML VIAL ONE (11:57)
--- NOTE | 2018-02-10 14:58 | EKG ---
Test Reason : Blood Pressure : / mmHG Vent. Rate : 142 BPM Atrial Rate : 073 BPM P-R Int : 000 ms QRS Dur : 106 ms QT Int : 294 ms P-R-T Axes : 000 053 017 degrees QTc Int : 452 ms POOR DATA QUALITY, INTERPRETATION MAY BE ADVERSELY AFFECTED atrial fibrilation INCOMPLETE RIGHT BUNDLE BRANCH BLOCK ANTERIOR INFARCT (CITED ON OR BEFORE 10-FEB-2018) ABNORMAL ECG Confirmed by RAVEN BERMUDEZ, BOY ([id number]) on 02/10/2018 2:57:57 PM Referred By: Confirmed By:BOY CARBAJAL MD
--- NOTE | 2018-02-10 14:58 | EKG ---
Test Reason : Blood Pressure : / mmHG Vent. Rate : 158 BPM Atrial Rate : 061 BPM P-R Int : 000 ms QRS Dur : 100 ms QT Int : 292 ms P-R-T Axes : 000 048 -16 degrees QTc Int : 473 ms ATRIAL FIBRILLATION ANTERIOR INFARCT (CITED ON OR BEFORE 26-APR-2017) ABNORMAL ECG Confirmed by BOY CARBAJAL MD ([id number]) on 02/10/2018 2:58:21 PM Referred By: Confirmed By:BOY CARBAJAL MD
[2018-02-10] MEDS: CEFTRIAXONE 1 GM in DEXTROSE 5%-WATER - 50 ML IVPB SCH (16:14)
[2018-02-10] MEDS ORDERED: CEFTRIAXONE 1 GM/50 ML BAG ONE (16:16)
[2018-02-10] MEDS ORDERED: metoPROLOL SUCCINATE 25 MG TAB.SR.24H (FP) PO ONE (16:42)
[2018-02-10] MEDS ORDERED: WARFARIN NA 2 MG TABLET (UD) PO SCH (18:00)
[2018-02-10] MEDS ORDERED: CEFTRIAXONE 1 GM in DEXTROSE 5%-WATER 100 ML IVPB SCH (22:00)
[2018-02-11] MEDS: clonazePAM 0.5 MG TABLET PO SCH ×2 (05:52→17:38)
[2018-02-11] MEDS: CARBIDOPA/LEVODOPA 25/100 TABLET (FP) PO SCH ×4 (05:59→17:37)
[2018-02-11 06:19] LABS: BASO % 0.6 % (0-2.0); EOS % 1.2 % (0-4.5); HEMATOCRIT 35.6 % (35.4-49); HEMOGLOBIN 12.2 GM/dL (11.7-16.9); LYMPH % 25.5 % (8-40); MCH 32.6 pg (25.7-33.7); MCHC 34.4 g/dl (32.0-35.9); MEAN CELL VOLUME 94.9 fl (80-96); MEAN PLT VOLUME 8.9 fl (7.5-11.1); MONO % 16.9 % (3.8-10.2); NEUT % 55.8 % (42.8-82.8); PLATELET COUNT 138 K/MM3 (134-434); RBC 3.75 M/mm3 (4.00-5.60); RDW 13.6 % (11.9-15.9); WHITE BLOOD COUNT 4.4 K/mm3 (4.0-10.0)
[2018-02-11 06:37] LABS: INR 2.42 (0.82-1.09); PROTHROMBIN TIME (PATIENT) 27.4 SEC (9.7-13.0)
[2018-02-11 06:53] LABS: ANION GAP 7 (8-16); BLOOD UREA NITROGEN 26 mg/dL (7-18); CALCIUM 8.2 mg/dL (8.5-10.1); CHLORIDE 105 mmol/L (98-107); CO2 26 mmol/L (21-32); CREATININE 0.9 mg/dL (0.7-1.3); GLUCOSE,RANDOM 107 mg/dL (74-106); POTASSIUM 4.1 mmol/L (3.5-5.1); SODIUM 138 mmol/L (136-145)
[2018-02-11] MEDS ORDERED: PT OWN MED DRAWER 7, Y5N ONE ×2 (09:47→12:26)
[2018-02-11] MEDS ORDERED: DEXTROSE 5%-WATER - 50 ML IVPB ONE (09:47)
[2018-02-11] MEDS ORDERED: cefTRIAXone SODIUM 1 GM VIAL ONE (09:47)
[2018-02-11] MEDS: ARTIFICIAL TEARS (POLYVINYL ALCOHOL 1.4%) OPTH DROPS OU SCH ×2 (09:53→22:18)
[2018-02-11] MEDS: CEFTRIAXONE 1 GM in DEXTROSE 5%-WATER - 50 ML IVPB SCH (09:53)
[2018-02-11] MEDS: LOSARTAN POTASSIUM 25 MG TABLET PO SCH (09:53)
[2018-02-11] MEDS: MULTIVITAMINS (DAILY MVI) TABLET (FP) PO SCH (09:54)
[2018-02-11] MEDS: ASCORBIC ACID 500 MG TABLET (FP) PO SCH (09:54)
[2018-02-11] MEDS: METHYL SALICYLATE/MENTHOL OINT 30 GM TUBE TP SCH (11:18)
--- NOTE | 2018-02-11 11:22 | PN ---
Progress Note (short form) - Note Progress Note: s: no cp sob palps dizzy o Vital Signs Period Temp Pulse Resp BP Sys/Lauren Pulse Ox Last 24 Hr 97.5 F-98.9 F 60-151 15-20 120-145/58-88 98-100 Constitutional: Yes: Well Nourished, No Distress Eyes: Yes: Conjunctiva Clear Neck: Yes: Supple Respiratory: Yes: CTA Bilaterally Gastrointestinal: Yes: Soft Cardiovascular: Yes: Pulse Irregular JVD: No Carotid Bruit: No Edema: No no jaundice diaphoresis awake alert Current Medications Generic Name Dose Route Start Last Admin Trade Name Freq PRN Reason Stop Dose Admin Artificial Tears 1 drop 02/10/18 10:00 02/11/18 09:53 Artificial Tears OU 1 drop BID DAJA Administration Ascorbic Acid 500 mg 02/10/18 10:00 02/11/18 09:54 Vitamin C - PO 500 mg DAILY DAJA Administration Carbidopa/Levodopa 1 combo 02/10/18 22:00 02/10/18 23:10 Sinemet *Cr* 50/200 - PO 1 combo HS DAJA Administration Carbidopa/Levodopa 2 each 02/10/18 06:00 02/11/18 09:54 Sinemet 25/100 - PO 2 each 0600,1000,1400,1800 DAJA Administration Clonazepam 0.5 mg 02/10/18 05:30 02/11/18 05:52 Klonopin - PO 0.5 mg Q12H DAJA Administration Ceftriaxone Sodium 1 gm/ 50 mls @ 100 mls/hr 02/10/18 15:45 02/11/18 09:53 Dextrose IVPB 100 mls/hr DAILY DAJA Administration Protocol Losartan Potassium 25 mg 02/10/18 10:00 02/11/18 09:53 Cozaar - PO 25 mg DAILY DAJA Administration Methyl Salicylate 1 applic 02/10/18 10:00 02/11/18 11:18 Marcel-Naranjo - TP 1 applic DAILY DAJA Administration Metoprolol Succinate 50 mg 02/10/18 12:30 02/11/18 09:54 Toprol Xl - PO 50 mg BID DAJA Administration Multivitamins/Minerals/Vitamin C 1 tab 02/10/18 10:00 02/11/18 09:54 Tab-A-Vit - PO 1 tab DAILY DAJA Administration Warfarin Sodium 4 mg 02/10/18 18:00 Coumadin - PO MoTuWeTh@1800 [facility] Warfarin Sodium 2.5 mg/ 4.5 mg 02/12/18 18:00 Warfarin Sodium 2 mg PO SuFrSa@1800 [facility] Laboratory Last Values WBC 4.4 K/mm3 (4.0-10.0) 02/11/18 05:30 RBC 3.75 M/mm3 (4.00-5.60) L 02/11/18 05:30 Hgb 12.2 GM/dL (11.7-16.9) 02/11/18 05:30 Hct 35.6 % (35.4-49) 02/11/18 05:30 MCV 94.9 fl (80-96) 02/11/18 05:30 MCH 32.6 pg (25.7-33.7) 02/11/18 05:30 MCHC 34.4 g/dl (32.0-35.9) 02/11/18 05:30 RDW 13.6 % (11.9-15.9) 02/11/18 05:30 Plt Count 138 K/MM3 (134-434) 02/11/18 05:30 MPV 8.9 fl (7.5-11.1) 02/11/18 05:30 Absolute Neuts (auto) 2.5 # 02/11/18 05:30 Neutrophils % 55.8 % (42.8-82.8) D 02/11/18 05:30 Lymphocytes % 25.5 % (8-40) D 02/11/18 05:30 Monocytes % 16.9 % (3.8-10.2) H 02/11/18 05:30 Eosinophils % 1.2 % (0-4.5) D 02/11/18 05:30 Basophils % 0.6 % (0-2.0) 02/11/18 05:30 Nucleated RBC % 0 % (0-0) 02/11/18 05:30 PT with INR 27.40 SEC (9.7-13.0) H 02/11/18 05:30 INR 2.42 (0.82-1.09) H 02/11/18 05:30 PTT (Actin FS) 46.1 SECONDS (25.2-36.5) H 02/10/18 07:48 VBG pH 7.41 (7.32-7.42) 02/09/18 19:35 POC VBG pCO2 45.7 mmHg (38-52) 02/09/18 19:35 POC VBG pO2 31.4 mmHg (28-48) 02/09/18 19:35 Mixed VBG HCO3 28.4 meq/L (19-25) H 02/09/18 19:35 Sodium 138 mmol/L (136-145) 02/11/18 05:30 Potassium 4.1 mmol/L (3.5-5.1) 02/11/18 05:30 Chloride 105 mmol/L (98-107) 02/11/18 05:30 Carbon Dioxide 26 mmol/L (21-32) 02/11/18 05:30 Anion Gap 7 (8-16) L 02/11/18 05:30 BUN 26 mg/dL (7-18) H 02/11/18 05:30 Creatinine 0.9 mg/dL (0.7-1.3) 02/11/18 05:30 Creat Clearance w eGFR > 60 (>60) 02/11/18 05:30 Random Glucose 107 mg/dL (74-106) H 02/11/18 05:30 Lactic Acid 0.9 mmol/L (0.0-2.0) 02/10/18 05:40 Calcium 8.2 mg/dL (8.5-10.1) L 02/11/18 05:30 Phosphorus 2.4 mg/dL (2.5-4.9) L 02/10/18 07:48 Magnesium 2.0 mg/dL (1.8-2.4) 02/10/18 07:48 Total Bilirubin 0.5 mg/dL (0.2-1.0) 02/09/18 19:35 AST 61 U/L (15-37) H D 02/09/18 19:35 ALT 80 U/L (12-78) H D 02/09/18 19:35 Alkaline Phosphatase 82 U/L (45-117) 02/09/18 19:35 Creatine Kinase 264 IU/L (39-308) 02/10/18 21:20 Creatine Kinase Index 1.5 % (0.0-5.0) 02/10/18 21:20 CK-MB (CK-2) 4.21 ng/mL (0.5-3.6) H 02/10/18 21:20 Troponin I 0.05 ng/ml (0.00-0.05) 02/10/18 21:20 Total Protein 6.4 g/dl (6.4-8.2) 02/09/18 19:35 Albumin 3.4 g/dl (3.4-5.0) 02/09/18 19:35 TSH 2.25 uIU/ml (0.358-3.74) 02/10/18 13:00 Urine Color Ltyellow 02/09/18 20:35 Urine Appearance Slcloudy 02/09/18 20:35 Urine pH 6.0 (5.0-8.0) 02/09/18 20:35 Ur Specific [place] 1.011 (1.001-1.035) 02/09/18 20:35 Urine Protein Negative (NEGATIVE) 02/09/18 20:35 Urine Glucose (UA) Negative (NEGATIVE) 02/09/18 20:35 Urine Ketones Negative (NEGATIVE) 02/09/18 20:35 Urine Blood 1+ (NEGATIVE) H 02/09/18 20:35 Urine Nitrite Positive (NEGATIVE) 02/09/18 20:35 Urine Bilirubin Negative (<2.0 mg/dL) 02/09/18 20:35 Urine Urobilinogen Negative mg/dL (0.2-1.0) 02/09/18 20:35 Ur Leukocyte Esterase Trace (NEGATIVE) 02/09/18 20:35 Urine WBC (Auto) 5 /hpf (3-5) 02/09/18 20:35 Urine RBC (Auto) 2 /hpf (0-3) 02/09/18 20:35 Urine Bacteria Many /hpf (NONE SEEN) 02/09/18 20:35 Hyaline Casts 1 /lpf 02/09/18 20:35 Urine Mucus Rare 02/09/18 20:35 Urine Yeast Few 02/09/18 20:35 echo 09/2017 EF 15-25% (beat to beat variability), tds for rwma but global HK with additional AKof basal-distal inf and inflat restrepo. ppm septal motion, nl rv , 1+monique, mild to mod ecc AR, 1+ MR, mod TR with at least mod phtn. suboptimal ivc views, but appears small trivial pericardial effusion arterial dopplers 07/2016 (from [place]) wnl tele: sr, brief pat 02/10/18 atrial fibrillation rate 124 bpm, no ischemic changes Ejection Fraction %: LVEF < 40 % (tele: atrial fibrillation, PVCs, rate 60s-70s) Assessment/Plan altered mental status, UTI - antibiotics per primary team - mental status appears improved this morning afib - initially presented with rapid rate, improved rate control after giving cardizem, had missed a dose of toprol at home -ICD interrogated by [facility] here, showed 93 episodes of AT, longest 86 min 55 sec, episodes range 170-171 bpm. 500 AMS episodes longest 2 hours 58 min, rate range 80-160 bpm. 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
--- NOTE | 2018-02-11 13:10 | PN ---
Progress Note, Physician Chief Complaint: Pt lying in bed in no acute distress. Pt reports he feels better, ate breakfast. Denies any chest pain/discomfort, sob, n/v/d - Current Medication List Current Medications: Active Medications Artificial Tears (Artificial Tears) 1 drop OU BID [facility] Last Admin: 02/11/18 09:53 Dose: 1 drop Ascorbic Acid (Vitamin C -) 500 mg PO DAILY [facility] Last Admin: 02/11/18 09:54 Dose: 500 mg Carbidopa/Levodopa (Sinemet *Cr* 50/200 -) 1 combo PO HS [facility] Last Admin: 02/10/18 23:10 Dose: 1 combo Carbidopa/Levodopa (Sinemet 25/100 -) 2 each PO 0600,1000,1400,1800 [facility] Last Admin: 02/11/18 09:54 Dose: 2 each Clonazepam (Klonopin -) 0.5 mg PO Q12H [facility] Last Admin: 02/11/18 05:52 Dose: 0.5 mg Ceftriaxone Sodium 1 gm/ (Dextrose) 50 mls @ 100 mls/hr IVPB DAILY [facility]; Protocol Last Admin: 02/11/18 09:53 Dose: 100 mls/hr Losartan Potassium (Cozaar -) 25 mg PO DAILY [facility] Last Admin: 02/11/18 09:53 Dose: 25 mg Methyl Salicylate (Marcel-Naranjo -) 1 applic TP DAILY [facility] Last Admin: 02/11/18 11:18 Dose: 1 applic Metoprolol Succinate (Toprol Xl -) 50 mg PO BID [facility] Last Admin: 02/11/18 09:54 Dose: 50 mg Multivitamins/Minerals/Vitamin C (Tab-A-Vit -) 1 tab PO DAILY [facility] Last Admin: 02/11/18 09:54 Dose: 1 tab Warfarin Sodium (Coumadin -) 4 mg PO MoTuWeTh@1800 [facility] Warfarin Sodium 2.5 mg/ (Warfarin Sodium 2 mg) 4.5 mg PO SuFrSa@1800 [facility] - Objective Vital Signs: Vital Signs Temperature 98.7 F 02/11/18 10:00 Pulse Rate 60 02/11/18 10:00 Respiratory Rate 18 02/11/18 10:00 Blood Pressure 120/58 02/11/18 10:00 O2 Sat by Pulse Oximetry (%) 98 02/11/18 05:47 Constitutional: Yes: Well Nourished, No Distress, Calm Cardiovascular: Yes: Pulse Irregular. No: Gallop, Murmur Respiratory: Yes: WNL, Regular, CTA Bilaterally. No: Accessory Muscle Use, Rhonchi, SOB, Tachypnea, Wheezes Gastrointestinal: Yes: WNL, Normal Bowel Sounds, Soft. No: Distention, Tenderness Genitourinary: Yes: WNL Edema: No Neurological: Yes: WNL, Alert, Oriented Psychiatric: Yes: WNL, Alert, Oriented Labs: CBC, BMP 02/11/18 05:30 02/11/18 05:30 INR, PTT INR 2.42 (0.82-1.09) H 02/11/18 05:30 Problem List - Problems (1) UTI (urinary tract infection) Code(s): N39.0 - URINARY TRACT INFECTION, SITE NOT SPECIFIED Qualifiers: Urinary tract infection type: site unspecified Hematuria presence: without hematuria Qualified Code(s): N39.0 - Urinary tract infection, site not specified (2) Atrial fibrillation with RVR Code(s): I48.91 - UNSPECIFIED ATRIAL FIBRILLATION (3) Afib Code(s): I48.91 - UNSPECIFIED ATRIAL FIBRILLATION Qualifiers: Atrial fibrillation type: chronic Qualified Code(s): I48.2 - Chronic atrial fibrillation (4) Subtherapeutic anticoagulation Code(s): Z51.81 - ENCOUNTER FOR THERAPEUTIC DRUG LEVEL MONITORING; Z79.01 - LONG-TERM (CURRENT) USE OF ANTICOAGULANTS (5) Parkinson disease Code(s): G20 - PARKINSON'S DISEASE (6) HTN (hypertension) Code(s): I10 - ESSENTIAL (PRIMARY) HYPERTENSION Qualifiers: Hypertension type: essential hypertension Qualified Code(s): I10 - Essential (primary) hypertension (7) CHF (congestive heart failure) Code(s): I50.9 - HEART FAILURE, UNSPECIFIED Qualifiers: Heart failure type: systolic Heart failure chronicity: chronic Qualified Code(s): I50.22 - Chronic systolic (congestive) heart failure Assessment/Plan (1) UTI (urinary tract infection) Assessment/Plan: UA+,UC growing nlfgnb, awaiting sensitivity lethargy resolved, eating well here Iv antibx day 3 continue ceftriaxone, change to po upon d/c Code(s): N39.0 - URINARY TRACT INFECTION, SITE NOT SPECIFIED Qualifiers: Urinary tract infection type: site unspecified Hematuria presence: without hematuria Qualified Code(s): N39.0 - Urinary tract infection, site not specified (2) Atrial fibrillation with RVR Assessment/Plan: resolved, rate controlled now suspect triggered by infection metoprolol 50 BID tele monitor cardiology following Code(s): I48.91 - UNSPECIFIED ATRIAL FIBRILLATION (3) Afib Assessment/Plan: s/p ppm INR therapeutic continue coumadin continue metoprolol monitor Code(s): I48.91 - UNSPECIFIED ATRIAL FIBRILLATION Qualifiers: Atrial fibrillation type: chronic Qualified Code(s): I48.2 - Chronic atrial fibrillation (4) Subtherapeutic anticoagulation Assessment/Plan: resolved Code(s): Z51.81 - ENCOUNTER FOR THERAPEUTIC DRUG LEVEL MONITORING; 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 (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) USE OF ANTICOAGULANTS (5) Parkinson disease Assessment/Plan: chronic continue sinemet PT Code(s): G20 - PARKINSON'S DISEASE (6) HTN (hypertension) Assessment/Plan: controlled continue current regimen Code(s): I10 - ESSENTIAL (PRIMARY) HYPERTENSION Qualifiers: Hypertension type: essential hypertension Qualified Code(s): I10 - Essential (primary) hypertension (7) CHF (congestive heart failure) Assessment/Plan: chronic, systolic, s/p ICD euvolemic continue current management cardiology following Code(s): I50.9 - HEART FAILURE, UNSPECIFIED Qualifiers: Heart failure type: systolic Heart failure chronicity: chronic Qualified Code(s): I50.22 - Chronic systolic (congestive) heart failure Dispo: return to [facility] tomorrow, pending UC sensitvity
[2018-02-11] MEDS: DOCUSATE SODIUM 100 MG CAPSULE (FP) PO SCH ×2 (14:07→22:18)
[2018-02-11] MEDS ORDERED: BISACODYL 5 MG TABLET.DR (FP) PO ONE (14:45)
[2018-02-11] MEDS ORDERED: SENNOSIDES 8.6MG TABLET (FP) PO SCH (22:00)
[2018-02-12] MEDS: DOCUSATE SODIUM 100 MG CAPSULE (FP) PO SCH ×2 (06:08→13:58)
[2018-02-12] MEDS: CARBIDOPA/LEVODOPA 25/100 TABLET (FP) PO SCH ×3 (06:09→13:58)
[2018-02-12] MEDS: clonazePAM 0.5 MG TABLET PO SCH (06:09)
[2018-02-12 07:26] LABS: BASO % 0.9 % (0-2.0); EOS % 2.4 % (0-4.5); HEMATOCRIT 39.3 % (35.4-49); HEMOGLOBIN 13.4 GM/dL (11.7-16.9); LYMPH % 30.1 % (8-40); MCHC 34.1 g/dl (32.0-35.9); MEAN CELL VOLUME 94.1 fl (80-96); MEAN PLT VOLUME 8.6 fl (7.5-11.1); MONO % 14.3 % (3.8-10.2); NEUT % 52.3 % (42.8-82.8); PLATELET COUNT 150 K/MM3 (134-434); RBC 4.18 M/mm3 (4.00-5.60); RDW 13.8 % (11.9-15.9); WHITE BLOOD COUNT 4.4 K/mm3 (4.0-10.0)
[2018-02-12 07:56] LABS: ANION GAP 5 (8-16); BLOOD UREA NITROGEN 18 mg/dL (7-18); CALCIUM 8.6 mg/dL (8.5-10.1); CHLORIDE 105 mmol/L (98-107); CO2 29 mmol/L (21-32); CREATININE 0.8 mg/dL (0.7-1.3); GLUCOSE,RANDOM 89 mg/dL (74-106); POTASSIUM 4.1 mmol/L (3.5-5.1); SODIUM 139 mmol/L (136-145)
[2018-02-12 08:26] LABS: INR 1.72 (0.82-1.09); PROTHROMBIN TIME (PATIENT) 19.4 SEC (9.7-13.0)
[2018-02-12] MEDS ORDERED: DEXTROSE 5%-WATER - 50 ML IVPB ONE (09:11)
[2018-02-12] MEDS ORDERED: cefTRIAXone SODIUM 1 GM VIAL ONE (09:11)
[2018-02-12] MEDS ORDERED: PT OWN MED DRAWER 7, Y5N ONE (09:11)
[2018-02-12] MEDS: CEFTRIAXONE 1 GM in DEXTROSE 5%-WATER - 50 ML IVPB SCH (09:13)
[2018-02-12] MEDS: ASCORBIC ACID 500 MG TABLET (FP) PO SCH (09:14)
[2018-02-12] MEDS: LOSARTAN POTASSIUM 25 MG TABLET PO SCH (09:14)
[2018-02-12] MEDS: MULTIVITAMINS (DAILY MVI) TABLET (FP) PO SCH (09:14)
[2018-02-12] MEDS: METHYL SALICYLATE/MENTHOL OINT 30 GM TUBE TP SCH (09:14)
[2018-02-12] MEDS: ARTIFICIAL TEARS (POLYVINYL ALCOHOL 1.4%) OPTH DROPS OU SCH (09:22)
[2018-02-12 09:26] VITALS: TEMP 98
[2018-02-12] MEDS ORDERED: WARFARIN NA 2 MG TABLET (UD) PO ONE (10:32)
--- NOTE | 2018-02-12 10:50 | DS ---
Physical Examination Vital Signs: Vital Signs Temperature 98 F 02/12/18 09:00 Pulse Rate 60 02/12/18 09:00 Respiratory Rate 18 02/12/18 09:00 Blood Pressure 133/82 02/12/18 09:00 O2 Sat by Pulse Oximetry (%) 99 02/11/18 21:00 Constitutional: Yes: Well Nourished, No Distress, Calm Cardiovascular: Yes: Pulse Irregular Respiratory: Yes: WNL, Regular, CTA Bilaterally. No: Accessory Muscle Use, Rales, Rhonchi, SOB, Tachypnea, Wheezes Gastrointestinal: Yes: WNL, Normal Bowel Sounds, Soft. No: Distention, Tenderness Renal/: Yes: WNL Edema: No Neurological: Yes: WNL, Alert, Oriented Psychiatric: Yes: WNL, Alert, Oriented Labs: CBC, BMP 02/12/18 06:20 02/12/18 06:20 Discharge Summary Reason For Visit: SHORT STAY Current Active Problems Afib (Acute) Atrial fibrillation with RVR (Acute) CHF (congestive heart failure) (Acute) HTN (hypertension) (Acute) Pacemaker (Acute) Parkinson disease (Acute) SVT (supraventricular tachycardia) (Acute) UTI (urinary tract infection) (Acute) Hospital Course: Mr.De Paul Smith is a 77 year old male who was admitted for lethargy/reduced po intake at SNF. Pt found to have UTI-ecoli, afib w/ rvr in 150s. Pt started on ceftriaxone, received 3 doses. Pt mental status at baseline, eating all meals, conversive without further changes. Pt can finish course at SNF, 7 more days of keflex. INR slightly sub therapeutic today, received coumadin 4mg this am, check INR tomorrow at SNF and adjust coumadin accordingly. Pt evaluated by cardiology for afib w/ rvr. Metoprolol increased. Pt currently rate controlled. Pt cleared by cardiology for discharge. Plan of care/ discharge plan discussed with brother Rohan who reports understanding. Pt is medically cleared for discharge from hospital. Condition: Stable - Instructions Diet, Activity, Other Instructions: KEFLEX 500MG BID X 7 MORE DAYS CONTINUE COUMADIN. RECEIVED 4MG THIS AM, INR 1.7. PLEASE RECHECK TOMORROW AND ADJUST COUMADIN NEEDED F/U DIRECTED Referrals: Marco Antonio Wu MD [Primary Care Provider] - Disposition: [facility] - Home Medications Comprehensive Discharge Medication List: Ambulatory Orders clonazePAM [Klonopin -] 0.5 mg PO Q12H 04/26/17 Ascorbate Calcium [Vitamin C] 500 mg PO DAILY #30 tablet 04/28/17 Carbidopa/Levodopa *Cr* 50/200 [Sinemet *Cr* 50/200 -] 1 combo PO HS #30 tab 10/10 Losartan Potassium [Cozaar] 25 mg PO DAILY #30 tab 04/28/17 Multivitamins [Multivit ([facility] Formulary)] 1 tab PO DAILY #30 tab 04/28/17 Acetaminophen 650 mg PO Q4H PRN 02/10/18 Carbidopa/Levodopa 25/100 [Sinemet 25/100 -] 2 each PO 0600,1000,1400,1800 02/10 Menthol [Bengay Ultra Strength] 1 each TP DAILY 02/10/18 Polyvinyl Alcohol [Artificial Tears] 1 drop OU BID 02/10/18 Warfarin Na [Coumadin -] 4 mg PO ASDIR 02/10/18 Warfarin Sodium [Coumadin] 4.5 mg PO ASDIR 02/10/18 Cephalexin [Keflex] 500 mg PO BID 3 Days #6 capsule 02/12/18 Docusate Sodium [Colace -] 100 mg PO TID capsule 02/12/18 Metoprolol Succinate [Toprol XL -] 50 mg PO BID tab.sr.24h 02/12/18 Sennosides [Senna -] 2 tab PO HS tablet 02/12/18
--- NOTE | 2018-02-12 11:12 | PN ---
Progress Note (short form) - Note Progress Note: s: no cp sob palps dizzy o Vital Signs Period Temp Pulse Resp BP Sys/Lauren Pulse Ox Last 24 Hr 97.8 F-98.1 F 60-76 18-20 123-154/61-82 99 Constitutional: Yes: Well Nourished, No Distress Eyes: Yes: Conjunctiva Clear Neck: Yes: Supple Respiratory: Yes: CTA Bilaterally Gastrointestinal: Yes: Soft Cardiovascular: Yes: Pulse Irregular JVD: No Carotid Bruit: No Edema: No no jaundice diaphoresis awake alert Current Medications Generic Name Dose Route Start Last Admin Trade Name Freq PRN Reason Stop Dose Admin Artificial Tears 1 drop 02/10/18 10:00 02/12/18 09:22 Artificial Tears OU 1 drop BID DAJA Administration Ascorbic Acid 500 mg 02/10/18 10:00 02/12/18 09:14 Vitamin C - PO 500 mg DAILY DAJA Administration Carbidopa/Levodopa 1 combo 02/10/18 22:00 02/11/18 22:18 Sinemet *Cr* 50/200 - PO 1 combo HS DAJA Administration Carbidopa/Levodopa 2 each 02/10/18 06:00 02/12/18 09:13 Sinemet 25/100 - PO 2 each 0600,1000,1400,1800 DAJA Administration Clonazepam 0.5 mg 02/10/18 05:30 02/12/18 06:09 Klonopin - PO 0.5 mg Q12H DAJA Administration Docusate Sodium 100 mg 02/11/18 14:00 02/12/18 06:08 Colace - PO 100 mg TID DAJA Administration Ceftriaxone Sodium 1 gm/ 50 mls @ 100 mls/hr 02/10/18 15:45 02/12/18 09:13 Dextrose IVPB 100 mls/hr DAILY DAJA Administration Protocol Losartan Potassium 25 mg 02/10/18 10:00 02/12/18 09:14 Cozaar - PO 25 mg DAILY DAJA Administration Magnesium Citrate 300 ml 02/12/18 11:30 Citroma - PO 02/12/18 11:31 ONCE ONE Methyl Salicylate 1 applic 02/10/18 10:00 02/12/18 09:14 Marcel-Naranjo - TP 1 applic DAILY DAJA Administration Metoprolol Succinate 50 mg 02/10/18 12:30 02/12/18 09:14 Toprol Xl - PO 50 mg BID DAJA Administration Multivitamins/Minerals/Vitamin C 1 tab 02/10/18 10:00 02/12/18 09:14 Tab-A-Vit - PO 1 tab DAILY DAJA Administration Senna 2 tab 02/11/18 22:00 02/11/18 22:18 Senna - PO 2 tab HS DAJA Administration Warfarin Sodium 4 mg 02/10/18 18:00 02/11/18 17:38 Coumadin - PO 4 mg [id number]@1800 DAJA Administration Warfarin Sodium 2.5 mg/ 4.5 mg 02/12/18 18:00 Warfarin Sodium 2 mg PO [id number]@1800 DAJA CBC, BMP 02/12/18 06:20 02/12/18 06:20 echo 09/2017 EF 15-25% (beat to beat variability), tds for rwma but global HK with additional AKof basal-distal inf and inflat restrepo. ppm septal motion, nl rv , 1+monique, mild to mod ecc AR, 1+ MR, mod TR with at least mod phtn. suboptimal ivc views, but appears small trivial pericardial effusion arterial dopplers 07/2016 (from [place]) wnl tele: sr, no svt 02/10/18 atrial fibrillation rate 124 bpm, no ischemic changes Ejection Fraction %: LVEF < 40 % (tele: atrial fibrillation, PVCs, rate 60s-70s) Assessment/Plan altered mental status, UTI - antibiotics per primary team afib - initially presented with rapid rate, improved rate control after giving cardizem, had missed a dose of toprol at home -ICD interrogated by [facility] here, showed 93 episodes of AT, longest 86 min 55 sec, episodes range 170-171 bpm. 500 AMS episodes longest 2 hours 58 min, rate range 80-160 bpm. -increased toprol to 50 bid here, no svt on tele overnight -on coumadin, monitor INR chronic systolic heart failure/ICD - euvolemic on exam today - EF 15-20% from clinic notes - continue losartan, metoprolol history of PAD - s/p angioplasty 03/2016 - denies claudication, continue statin, warfarin parkinson's disease - on home meds cardiac porter remains stable
[2018-02-12] MEDS ORDERED: MAGNESIUM CITRATE 300 ML BOTTLE PO ONE (11:30)
[2018-02-12 14:08] VITALS: BP 124/68; PULSE 64
[2018-02-12] MEDS ORDERED: WARFARIN NA 2.5 MG, WARFARIN NA 2 MG PO SCH (18:00)
[2018-02-12] MEDS ORDERED: WARFARIN NA 2.5 MG TABLET (FP) PO SCH (18:00)
[2018-02-12 21:20] VITALS: BMI 23.7
== END 2018-02-12 17:15 | DRG 690 ==
LOC: JER 17:38 → JERBED 02-10 01:08 → J4W 02-10 20:45 → OBSVTOIN 02-11 12:43
PROVIDERS: ADMIT Internal Medicine; ATTEND Internal Medicine
DX: N39.0 Urinary tract infection, site not specified (principal); I50.22 Chronic systolic (congestive) heart failure; I47.1 Supraventricular tachycardia; F41.9 Anxiety disorder, unspecified; B96.20 Unspecified Escherichia coli [E. coli] as the cause of diseases classified elsewhere; I73.9 Peripheral vascular disease, unspecified; I48.2 Chronic atrial fibrillation; E54 Ascorbic acid deficiency; G20 Parkinson's disease; I11.0 Hypertensive heart disease with heart failure; Z95.0 Presence of cardiac pacemaker; Z87.891 Personal history of nicotine dependence; Z51.81 Encounter for therapeutic drug level monitoring
CPT/HCPCS: 36415; 70450-TC; 71045-TC-FY; 80048; 80053; 81003; 81015; 82550; 82553; 82803; 83605; 83735; 84100; 84443; 84484; 85025; 85610; 85730; 87040; 87086; 87186; 93005; 93010; 99285-25; G0378; J7030

== ENCOUNTER 2018-08-08 15:15 | Inpatient (IN) | payer OTHER ==
--- NOTE | 2018-08-08 15:24 | PDOC ---
History of Present Illness - General Chief Complaint: CVA/TIA Stated Complaint: CVA Time Seen by Provider: 08/08/18 15:19 History Source: Patient, Care Provider, Family, Old Records Exam Limitations: Clinical Condition, Dementia, Language Barrier - History of Present Illness Initial Comments: 78 yo M w a sig pmh of hypertension (losartan and metoprolol), heart failure s/ p pacemaker (December 2016), vertigo (taking meclizine), parkinsons disease ( taking sinemet 4x daily), and afib on Warfarin, who presents to the emergency department from [facility] to rule out if the patient is having a CVA/ Stroke. The patient does not speak much. What he does say is very soft and incoherent. The son at bedside says he has not been acting well the past day and that he knows something is wrong because his father is not eating. Son says the only time he doesn't eat is when he is sick. Son says that yesterday the father was complaining of left arm pain. Called up [facility]: Nurse says patient was complaining of feeling weak , and that his muscles are weak all over his body. This all began yesterday but bc the weakness continued this morning they wanted him sent to the ER for a CT scan of the head. no Fevers, eating and drinking normally as per senior living. Ate a little bit yesterday. Son says his father hasn't had any chest pain, shortness of breath, headache, dizziness, fever, chills, nausea, vomit, diarrhea, constipation, dysuria, frequency, urgency and hematuria. Allergies: NKDA, NKA Past surgical history: s/p pacemaker -PPM/AICD Social history: Son says father doesn't smoke, drink, or use other substances. Use to smoke 50 + years ago. PCP: Dr. Marco Antonio Madrigal Jorgensen (Brother) [phone] Past History - Past Medical History Allergies/Adverse Reactions: Allergies Allergy/AdvReac Type Severity Reaction Status Date / Time No Known Allergies Allergy Verified 08/08/18 15:17 Home Medications: Ambulatory Orders clonazePAM [Klonopin -] 0.5 mg PO Q12H 04/26/17 Ascorbate Calcium [Vitamin C] 500 mg PO DAILY #30 tablet 04/28/17 Losartan Potassium [Cozaar] 25 mg PO DAILY #30 tab 04/28/17 Multivitamins [Multivit ([facility] Formulary)] 1 tab PO DAILY #30 tab 04/28/17 Acetaminophen 650 mg PO Q6H PRN 02/10/18 Carbidopa/Levodopa 25/100 [Sinemet 25/100 -] 1 each PO 0900,1300,1700,2100 02/10 Menthol [Bengay Ultra Strength] 1 each TP DAILY 02/10/18 Polyvinyl Alcohol [Artificial Tears] 1 drop OU BID 02/10/18 Warfarin Na [Coumadin -] 2 mg PO DAILY 02/10/18 Docusate Sodium [Colace -] 100 mg PO TID capsule 02/12/18 Sennosides [Senna -] 2 tab PO HS tablet 02/12/18 Metoprolol Succinate [Toprol XL -] 25 mg PO BID 08/08/18 Warfarin Na [Coumadin] 2.5 mg PO DAILY 08/08/18 Cardiac Disorders: Yes COPD: No CHF: Yes HTN: Yes Psychiatric Problems: Yes (anxiety) - Surgical History Cardiac Surgery: Yes (pacemaker) - Suicide/Smoking/Psychosocial Hx Smoking History: Former smoker Have you smoked in the past 12 months: No If you are a former smoker, when did you quit?: 50 years ago Hx Alcohol Use: No Drug/Substance Use Hx: No Substance Use Type: None Hx Substance Use Treatment: No Review of Systems - Review of Systems Able to Perform ROS?: No (patient is non verbal) *Physical Exam - Physical Exam General Appearance: Yes: Nourished, Appropriately Dressed, Thin, Other (stoic appearing). No: Apparent Distress, Disheveled HEENT: positive: MAKAYLA, Normal ENT Inspection, Pharynx Normal. negative: Normal Voice, Scleral Icterus (R), Scleral Icterus (L), Pharyngeal Erythema, Nasal Congestion, Rhinorrhea, Excessive drooling, Thrush Neck: positive: Trachea midline, Decreased range of motion. negative: Lymphadenopathy (R), Lymphadenopathy (L), Tender midline Respiratory/Chest: positive: Lungs Clear, Normal Breath Sounds. negative: Accessory Muscle Use, Labored Respiration, Rapid RR, Decreased Breath Sounds, Crackles, Rales, Rhonchi, Stridor, Wheezing Cardiovascular: positive: S1, S2, Bradycardia, Tachycardia, Irregularly Irregular, Irregular, Other (Alternating between tachy and katelynn. Pulse is very irregular. ). negative: Regular Rhythm, Regular Rate, Edema, JVD, Diastolic Murmur, Systolic Murmur Vascular Pulses: Dorsalis-Pedis (R): 2+, Doralis-Pedis (L): 2+ Gastrointestinal/Abdominal: positive: Normal Bowel Sounds, Soft. negative: Distended, Guarding, Rebound Rectal Exam: positive: deferred Lymphatic: negative: Adenopathy Musculoskeletal: positive: Normal Inspection, Decreased Range of Motion. negative: CVA Tenderness, Vertebral Tenderness Extremity: positive: Normal Capillary Refill, Normal Inspection. negative: Normal Range of Motion (rigid), Pedal Edema, Swelling, Erythema, Inflammation Integumentary: positive: Normal Color, Dry, Warm, Mottled Neurologic: positive: burrer hand II-XII NML intact, Alert, Normal Response, Motor Strength 5/5, Respond to painful stimul, Responsive, Disoriented, Depressed Affect, Other (Cannot assess bc patient won't follow commands). negative: Fully Oriented, Normal Mood/Affect, EOM Palsy, Facial Droop, Numbness, Sensory Deficit, Confused NIH Stroke Scale - Last Known Well Date/Time & Onset Date Last Known Well: 08/07/18 Time Last Known Well: 14:00 - Initial Evaluation Level of consciousness: Alert Ask patient the month and their age: Both incorrect Ask patient to open & close eyes; make fist and let go: Obeys both correctly Best gaze (horizontal eye movement): Partial gaze palsy Visual field testing: No visual field loss Facial paresis (Show teeth/raise eyebrows/close eyes tight): Normal symmetrical movement Motor Function: Left Arm: Normal Motor Function: Right Arm: Normal (extends arm 90 (or 45) degrees for 10 seconds without drift Motor Function: Left Leg: Normal (extends leg 30 degrees for 5 seconds without drift) Motor Function: Right Leg: Normal (extends leg 30 degrees for 5 seconds without drift) Limb Ataxia: Present in one limb Sensory(Use pinprick test arms,legs,trunk,face/side to side): Normal Best language (Describe picture, name items, read sentences): Severe aphasia Dysarthria (read several words): Mild to moderate slurring of words Extinction and Inattention: No abnormality - Total Score NIH Stroke Scale Score: 7 Critical Care Time/MDM Note - Medical Decision Making Note: 78 yo M w a sig pmh of hypertension (losartan and metoprolol), heart failure s/ p pacemaker (December 2016), vertigo (taking meclizine), parkinsons disease ( taking sinemet 4x daily), and afib on Warfarin, who presents to the emergency department from [facility] to rule out if the patient is having a CVA/ Stroke. DDx IBNLT: Stoke, CVA, acs/mi, sick sinus syndrome, tachy/katelynn syndrome, AFIB Plan: Labs, urine, ekg, cxr, head ct, re-assess. Head CT negative for acute pathology. -Stroke scale - 4. I suspect this is the patients baseline 2/2 his parkinson dementia. Unlikely a stroke. EKG: Atrial paced rhythm w/ prolonged AV conduction - premature ventricular and atrial complexes. - Flipped T waves in leads 2 and 3 which were not present in January 2018. - At bedside the patient's pulse is quickly alternating between the 60's and 130 's. - This appears to be some type of sick sinus syndrome vs tachy katelynn syndrome. - Considering giving patient a beta bradford to control the Rate. Troponin came back elevated at 0.12 - Will consult Cards. - Patient has seen Dr. Celia Germain in past - calling her office. - Dr. Ramos is companion for their group. Calling Dr. Ramos. Dr. Shi says to Trend troponin every 6 hours. Also recommends holding BB for time being. Will admit patient to Tele for further care. *DC/Admit/Observation/Transfer Diagnosis at time of Disposition: NSTEMI (non-ST elevated myocardial infarction), Acute electrocardiogram changes - Discharge Dispostion Condition at time of disposition: Guarded Decision to Admit order: Yes - Referrals - Patient Instructions - Post Discharge Activity
[2018-08-08] MEDS ORDERED: SODIUM CHLORIDE 1,000 ML IV SCH (15:30)
[2018-08-08 16:03] LABS: BASO % 0.6 % (0-2.0); EOS % 1.3 % (0-4.5); HEMATOCRIT 46.3 % (35.4-49); LYMPH % 18.5 % (8-40); MCH 32.8 pg (25.7-33.7); MCHC 34.5 g/dl (32.0-35.9); MEAN CELL VOLUME 95.1 fl (80-96); MEAN PLT VOLUME 8.3 fl (7.5-11.1); NEUT % 68.6 % (42.8-82.8); PLATELET COUNT 201 K/MM3 (134-434); RBC 4.86 M/mm3 (4.00-5.60); RDW 14.5 % (11.9-15.9); WHITE BLOOD COUNT 4.9 K/mm3 (4.0-10.0)
--- NOTE | 2018-08-08 16:03 | PDOC ---
Attending Attestation - HPI HPI: 08/08/18 16:30 The patient is a 78 year old male, with a significant past medical history of heart failure (s/p pacemaker), vertigo, parkinsons disease, Afib (on Warfarin) , HTN, CHF, arrhythmia (s/p PPM), who presents to the emergency department from [facility] with, weakness and change in speech. As per patients son at bedside, his fathers last known well was 08/06 and his father endorses feeling weak yesterday and upon his arrival today his father noted abnormal speech and weakness/ pain to the left shoulder and arm. Son also endorses that the patient was not eating well which, is abnormal to his baseline. While in the ED, the patient is soft spoken Allergies: NKDA Past surgical history: PPM. Social History: Former smoker (Quit 50 years ago). Primary Care Physician: Dr. Marco Antonio Wu - Medical Decision Making 08/08/18 16:30 Call placed to [facility], case discussed with resident Dr. Jose Abraham. <Hermelinda Whiting - Last Filed: 08/08/18 16:30> - Resident Resident Name: Jose Abraham - ED Attending Attestation I have performed the following: I have examined & evaluated the patient, The case was reviewed & discussed with the resident, I agree w/resident's findings & plan, Exceptions are as noted - Physicial Exam PE: GENERAL: Awake, alert, and oriented to person and place, in no acute distress HEAD: No signs of trauma EYES: PERRLA, EOMI, sclera anicteric, conjunctiva clear ENT: Auricles normal inspection, hearing grossly normal, nares patent, oropharynx clear without exudates. Dry mucosa NECK: Normal ROM, supple, no lymphadenopathy, JVD, or masses LUNGS: Breath sounds equal, clear to auscultation bilaterally. No wheezes, and no crackles HEART: Regular rate and rhythm, normal S1 and S2, no murmurs, rubs or gallops ABDOMEN: Soft, nontender, normoactive bowel sounds. No guarding, no rebound. No masses EXTREMITIES: +Resting tremors in hands. No edema. No clubbing or cyanosis. No cords, erythema, or tenderness NEUROLOGICAL: Cranial nerves II through XII grossly intact. Slurred speech. Moving all extremities, however, with some muscle rigidity to the limbs. SKIN: Warm, Dry, normal turgor, no rashes or lesions noted. - Medical Decision Making Pt with altered mental status, complaining of weakness in the L arm today. Unclear time of onset (last seen at his baseline yesterday). Not a tPA candidate. Will obtain medical evaluation for AMS including labs, urine, CXR, and CTH. <Sharmila Rosario - Last Filed: 08/09/18 12:19> NIH Stroke Scale - Last Known Well Date/Time & Onset Date Last Known Well: 08/07/18 - Initial Evaluation Level of consciousness: Alert Ask patient the month and their age: Both incorrect Ask patient to open & close eyes; make fist and let go: Obeys both correctly Best gaze (horizontal eye movement): Normal Visual field testing: No visual field loss Facial paresis (Show teeth/raise eyebrows/close eyes tight): Normal symmetrical movement Motor Function: Left Arm: Normal Motor Function: Right Arm: Normal (extends arm 90 (or 45) degrees for 10 seconds without drift Motor Function: Left Leg: Normal (extends leg 30 degrees for 5 seconds without drift) Motor Function: Right Leg: Normal (extends leg 30 degrees for 5 seconds without drift) Limb Ataxia: Present in one limb Sensory(Use pinprick test arms,legs,trunk,face/side to side): Normal Best language (Describe picture, name items, read sentences): No Aphasia Dysarthria (read several words): Mild to moderate slurring of words Extinction and Inattention: No abnormality - Total Score NIH Stroke Scale Score: 4 <Sharmila Rosario - Last Filed: 08/09/18 12:19> Attestations - Attestations 08/08/18 16:30 Documentation prepared by Hermelinda Whiting, acting as medical records specialist for Sharmila Rosario MD. <Hermelinda Whiting - Last Filed: 08/08/18 16:30>
[2018-08-08 16:20] LABS: INR 3.93 (0.83-1.09)
[2018-08-08 16:31] VITALS: BMI 23.4
[2018-08-08 16:52] LABS: ALBUMIN 3.7 g/dl (3.4-5.0); ALK PHOS 94 U/L (45-117); ANION GAP 8 MMOL/L (8-16); BILIRUBIN,TOTAL 0.6 mg/dL (0.2-1); BLOOD UREA NITROGEN 26 mg/dL (7-18); CALCIUM 8.9 mg/dL (8.5-10.1); CHLORIDE 105 mmol/L (98-107); CHOLESTEROL 231 mg/dL (50-200); CO2 26 mmol/L (21-32); CREATININE 1.1 mg/dL (0.55-1.3); GLUCOSE,RANDOM 104 mg/dL (74-106); HDL CHOLESTEROL 66 mg/dL (40-60); POTASSIUM 3.9 mmol/L (3.5-5.1); SGOT/AST 21 U/L (15-37); SGPT/ALT 24 U/L (13-61); SODIUM 139 mmol/L (136-145); TOT PROT 7.2 g/dl (6.4-8.2); TRIGLYCERIDES 175 mg/dL (0-150)
[2018-08-08 17:38] LABS: URINE APPEARANCE CLEAR; URINE BILIRUBIN NEGATIVE (<2.0 mg/dL); URINE COLOR YELLOW; URINE GLUCOSE (UA) NEGATIVE (NEGATIVE); URINE KETONE TRACE (NEGATIVE); URINE LEUK ESTERASE NEGATIVE (NEGATIVE); URINE NITRITE NEGATIVE (NEGATIVE); URINE PROTEIN NEGATIVE (NEGATIVE); URINE UROBILINOGEN NEGATIVE mg/dL (0.2-1.0)
[2018-08-08] MEDS ORDERED: ACETAMINOPHEN 325 MG TABLET (FP) PO PRN (18:24)
[2018-08-08] MEDS ORDERED: ALPRAZolam 0.25 MG TABLET PO PRN (18:24)
--- NOTE | 2018-08-08 18:29 | HP ---
Admitting History and Physical - Primary Care Physician PCP: Marco Antonio Wu - Admission Chief Complaint: I feel fine History of Present Illness: Mr Jorgensen is a pleasant 78 year old male who comes in from [facility] with weakness and possible AMS. Per ER resident patient presented with his son. His son stated that over the past 24 hours he noted his father was weaker than normal and also had slower speech. The staff at [facility] also noted weakness and decreased strength in his R arm and sent him in for head CT to evaluate for stroke. I am seeing the patient alone and he states that he is feeling fine and is without complaint. He says he feels normal. He denies fevers, chills, lightheadedness, weakness, chest pain, shortness of breath, nausea, vomiting, abdominal pain, diarrhea, or swelling. He repeats that he is waiting for his brother to come see him. 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 Cardiovascular: Yes: AFIB, CHF - Past Surgical History Past Surgical History: Yes: AICD - Smoking History Smoking history: Former smoker Have you smoked in the past 12 months: No If you are a former smoker, when did you quit?: 50 years ago - Alcohol/Substance Use Hx Alcohol Use: No - Social History Usual Living Arrangement: Yes: Jail ADL: Support Services History of Recent Travel: No Home Medications - Allergies Allergies/Adverse Reactions: Allergies Allergy/AdvReac Type Severity Reaction Status Date / Time No Known Allergies Allergy Verified 08/08/18 15:17 - Home Medications Home Medications: Ambulatory Orders clonazePAM [Klonopin -] 0.5 mg PO Q12H 04/26/17 Ascorbate Calcium [Vitamin C] 500 mg PO DAILY #30 tablet 04/28/17 Losartan Potassium [Cozaar] 25 mg PO DAILY #30 tab 04/28/17 Multivitamins [Multivit ([facility] Formulary)] 1 tab PO DAILY #30 tab 04/28/17 Acetaminophen 650 mg PO Q6H PRN 02/10/18 Carbidopa/Levodopa 25/100 [Sinemet 25/100 -] 1 each PO 0900,1300,1700,2100 02/10 Menthol [Bengay Ultra Strength] 1 each TP DAILY 02/10/18 Polyvinyl Alcohol [Artificial Tears] 1 drop OU BID 02/10/18 Warfarin Na [Coumadin -] 2 mg PO DAILY 02/10/18 Docusate Sodium [Colace -] 100 mg PO TID capsule 02/12/18 Sennosides [Senna -] 2 tab PO HS tablet 02/12/18 Metoprolol Succinate [Toprol XL -] 25 mg PO BID 08/08/18 Warfarin Na [Coumadin] 2.5 mg PO DAILY 08/08/18 Family Disease History - Family Disease History Family History: Unable to Obtain Review of Systems Findings/Remarks: Full review of systems obtained, as per HPI and otherwise negative. Of note patient does have dementia so may not be accurate. Physical Examination Vital Signs: Vital Signs Temperature 36.6 C 08/08/18 15:17 Pulse Rate 57 L 08/08/18 18:00 Respiratory Rate 18 08/08/18 18:00 Blood Pressure 116/75 08/08/18 18:00 O2 Sat by Pulse Oximetry (%) 99 08/08/18 18:00 Constitutional: Yes: Well Nourished, No Distress, Calm Eyes: Yes: Conjunctiva Clear, PERRL HENT: Yes: Atraumatic, Normocephalic Cardiovascular: Yes: Regular Rate and Rhythm. No: Gallop, Murmur, Rub Respiratory: Yes: Regular, CTA Bilaterally. No: Rales, Rhonchi, Wheezes Gastrointestinal: Yes: Normal Bowel Sounds, Soft. No: Distention, Tenderness Extremities: Yes: WNL Edema: No Neurological: Yes: Alert, Oriented (person and place), Other (stiffness of extremities) ...Motor Strength: WNL Labs: CBC, BMP 08/08/18 15:50 08/08/18 15:50 Imaging - Results Chest X-ray: Image Reviewed X-ray: Image Reviewed Problem List - Problems (1) Acute metabolic encephalopathy Assessment/Plan: -unclear of baseline -however patient has some dehydration with DARIO considering weight and baseline creatinine -also receiving xanax bid -might not be clearing xanax as well -will change to 0.25mg daily currently -hydrate with IVF -low suspicion for stroke but will consult neurology as well to evaluate -patient is fully anticoagulated, no bleed on head CT and patient did not have trauma Code(s): G93.41 - METABOLIC ENCEPHALOPATHY (2) DARIO (acute kidney injury) Assessment/Plan: -will gently hydrate -hold cozaar currently -recheck bmp in am Code(s): N17.9 - ACUTE KIDNEY FAILURE, UNSPECIFIED (3) Elevated troponin Assessment/Plan: -cardiology consulted -will trend troponins -possible stress induced secondary to DARIO -hold beta blockers per cardiology recommendations -monitor on telemetry Code(s): R74.8 - ABNORMAL LEVELS OF OTHER SERUM ENZYMES (4) Afib Assessment/Plan: -rate controlled -pacemaker in place -INR supratherapeutic, hold coumadin -check INR in am Code(s): I48.91 - UNSPECIFIED ATRIAL FIBRILLATION Qualifiers: Atrial fibrillation type: chronic Qualified Code(s): I48.2 - Chronic atrial fibrillation (5) CHF (congestive heart failure) Assessment/Plan: -not in exacerbation -gentle hydration Code(s): I50.9 - HEART FAILURE, UNSPECIFIED Qualifiers: Heart failure type: systolic Heart failure chronicity: chronic Qualified Code(s): I50.22 - Chronic systolic (congestive) heart failure (6) HTN (hypertension) Assessment/Plan: -will hold cozaar and metorpo Code(s): I10 - ESSENTIAL (PRIMARY) HYPERTENSION Qualifiers: Hypertension type: essential hypertension Qualified Code(s): I10 - Essential (primary) hypertension (7) Pacemaker Assessment/Plan: -noted Code(s): Z95.0 - PRESENCE OF CARDIAC PACEMAKER (8) Parkinson disease Assessment/Plan: -continue home regimen Code(s): G20 - PARKINSON'S DISEASE
[2018-08-08 20:58] LABS: BASO % 0.9 % (0-2.0); EOS % 1.6 % (0-4.5); HEMOGLOBIN 13.8 GM/dL (11.7-16.9); LYMPH % 25.7 % (8-40); MCH 32.2 pg (25.7-33.7); MCHC 34.5 g/dl (32.0-35.9); MEAN CELL VOLUME 93.6 fl (80-96); MEAN PLT VOLUME 8.6 fl (7.5-11.1); MONO % 14.2 % (3.8-10.2); NEUT % 57.6 % (42.8-82.8); PLATELET COUNT 190 K/MM3 (134-434); RBC 4.28 M/mm3 (4.00-5.60); RDW 14.2 % (11.9-15.9); WHITE BLOOD COUNT 4.7 K/mm3 (4.0-10.0)
[2018-08-08] MEDS ORDERED: CARBIDOPA/LEVODOPA 25/100 TABLET (FP) ONE (21:25)
[2018-08-08] MEDS ORDERED: DOCUSATE SODIUM 100 MG CAPSULE (FP) PO ONE (21:26)
[2018-08-08] MEDS: CARBIDOPA/LEVODOPA 25/100 TABLET (FP) PO SCH (21:28)
[2018-08-08] MEDS: DOCUSATE SODIUM 100 MG CAPSULE (FP) PO SCH (21:28)
[2018-08-08 21:49] LABS: ALBUMIN 3.2 g/dl (3.4-5.0); ALK PHOS 74 U/L (45-117); ANION GAP 7 MMOL/L (8-16); BILIRUBIN,TOTAL 0.3 mg/dL (0.2-1); BLOOD UREA NITROGEN 28 mg/dL (7-18); CALCIUM 8.2 mg/dL (8.5-10.1); CHLORIDE 110 mmol/L (98-107); CHOLESTEROL 200 mg/dL (50-200); CO2 23 mmol/L (21-32); GLUCOSE,RANDOM 119 mg/dL (74-106); HDL CHOLESTEROL 57 mg/dL (40-60); SGOT/AST 16 U/L (15-37); SGPT/ALT 27 U/L (13-61); SODIUM 140 mmol/L (136-145); TOT PROT 6.3 g/dl (6.4-8.2); TRIGLYCERIDES 104 mg/dL (0-150)
[2018-08-08] MEDS ORDERED: SENNOSIDES 8.6MG TABLET (FP) PO SCH (22:00)
[2018-08-08 22:04] LABS: PROTHROMBIN TIME (PATIENT) 50.6 SEC (9.7-13.0)
[2018-08-08 22:10] LABS: INR 4.23 (0.83-1.09)
[2018-08-08] MEDS: ARTIFICIAL TEARS (POLYVINYL ALCOHOL) OPTH DROPS OU SCH (22:22)
[2018-08-09] MEDS: DOCUSATE SODIUM 100 MG CAPSULE (FP) PO SCH ×2 (06:11→13:23)
[2018-08-09 06:14] LABS: BASO % 0.6 % (0-2.0); EOS % 1.3 % (0-4.5); HEMATOCRIT 42.1 % (35.4-49); HEMOGLOBIN 13.7 GM/dL (11.7-16.9); MCH 30.7 pg (25.7-33.7); MCHC 32.5 g/dl (32.0-35.9); MEAN CELL VOLUME 94.8 fl (80-96); MEAN PLT VOLUME 8.2 fl (7.5-11.1); MONO % 11.4 % (3.8-10.2); NEUT % 66.7 % (42.8-82.8); PLATELET COUNT 172 K/MM3 (134-434); RBC 4.44 M/mm3 (4.00-5.60); RDW 14.3 % (11.9-15.9); WHITE BLOOD COUNT 6.7 K/mm3 (4.0-10.0)
[2018-08-09 06:27] VITALS: PULSE 86; TEMP 98.5
[2018-08-09 06:30] LABS: INR 3.35 (0.83-1.09)
[2018-08-09 06:37] LABS: ANION GAP 7 MMOL/L (8-16); BLOOD UREA NITROGEN 24 mg/dL (7-18); CALCIUM 8.6 mg/dL (8.5-10.1); CHLORIDE 109 mmol/L (98-107); CO2 23 mmol/L (21-32); CREATININE 0.9 mg/dL (0.55-1.3); GLUCOSE,RANDOM 115 mg/dL (74-106); MAGNESIUM 2.2 mg/dL (1.8-2.4); PHOSPHOROUS 2.5 mg/dL (2.5-4.9); POTASSIUM 4.2 mmol/L (3.5-5.1); SODIUM 139 mmol/L (136-145)
[2018-08-09] MEDS: CARBIDOPA/LEVODOPA 25/100 TABLET (FP) PO SCH ×2 (08:38→13:15)
[2018-08-09] MEDS ORDERED: CARBIDOPA/LEVODOPA 25/100 TABLET (FP) ONE (08:38)
--- NOTE | 2018-08-09 09:21 | DS ---
Physical Examination Vital Signs: Vital Signs Temperature 98.5 F 08/09/18 06:26 Pulse Rate 86 08/09/18 06:26 Respiratory Rate 19 08/09/18 06:26 Blood Pressure 127/65 08/09/18 06:26 O2 Sat by Pulse Oximetry (%) 98 08/08/18 20:15 Constitutional: Yes: No Distress, Calm, Thin Cardiovascular: Yes: Pulse Irregular Respiratory: Yes: WNL, Regular, CTA Bilaterally Gastrointestinal: Yes: WNL, Normal Bowel Sounds, Soft. No: Distention, Tenderness Renal/: Yes: WNL Extremities: Yes: WNL Edema: No Neurological: Yes: Alert, Oriented, Pre-Existing Deficit (hypophonia). No: Confusion, Facial Droop, Lethargy Psychiatric: Yes: WNL, Alert, Oriented Labs: CBC, BMP 08/09/18 05:55 08/09/18 06:00 Discharge Summary Reason For Visit: ACUTE ELECTROCARIOGRAPHY CHANGES Current Active Problems DARIO (acute kidney injury) (Acute) Acute electrocardiogram changes (Acute) Elevated troponin (Acute) NSTEMI (non-ST elevated myocardial infarction) (Acute) Hospital Course: 78 year old male admitted for evaluation of weakness, slow speech per pt's brother. Head CT neg. labs stable, inr supratherapetic, may resume coumadin when INR<3. Recommend reducing klonopin to prevent increased lethargy/weakness. Pt evaluated by cardiology, and neuro, cleared for discharge. Pt appears at baseline this am. Pt is medically stable for discharge to SNF. Brother, Rohan informed. Continue outpt neuro follow up for parkinson management. Condition: Stable - Instructions Diet, Activity, Other Instructions: continue as prior decrease klonopin to avoid lethargy hold losartan if BP<110/60 INR 3.35 today, continue coumadin 2mg once INR <3 , recheck INR tomorrow neurology follow up for parkinsons Referrals: Marco Antonio Wu MD [Staff Physician] - [facility]position: [facility] - Home Medications Comprehensive Discharge Medication List: Ambulatory Orders clonazePAM [Klonopin -] 0.5 mg PO Q12H 04/26/17 Ascorbate Calcium [Vitamin C] 500 mg PO DAILY #30 tablet 04/28/17 Losartan Potassium [Cozaar] 25 mg PO DAILY #30 tab 04/28/17 Multivitamins [Multivit ([facility] Formulary)] 1 tab PO DAILY #30 tab 04/28/17 Acetaminophen 650 mg PO Q6H PRN 02/10/18 Carbidopa/Levodopa 25/100 [Sinemet 25/100 -] 1 each PO 0900,1300,1700,2100 02/10 Menthol [Bengay Ultra Strength] 1 each TP DAILY 02/10/18 Polyvinyl Alcohol [Artificial Tears] 1 drop OU BID 02/10/18 Warfarin Na [Coumadin -] 2 mg PO DAILY 02/10/18 Docusate Sodium [Colace -] 100 mg PO TID capsule 02/12/18 Sennosides [Senna -] 2 tab PO HS tablet 02/12/18 Metoprolol Succinate [Toprol XL -] 25 mg PO BID 08/08/18 Warfarin Na [Coumadin] 2.5 mg PO DAILY 08/08/18
--- NOTE | 2018-08-09 09:35 | CONSULT ---
Consult - text type - Consultation Consultation Note: Neurology History of Present Illness: 78 year old male who comes in from [facility] with weakness and possible AMS. Per ER resident patient presented with his son. His son stated that he noted his father was weaker than normal and also had slower speech. The staff at [facility] also noted weakness and decreased strength in his R arm and sent him in for head CT to evaluate for stroke. Patient reports being asymptomatic and is without complaint. He says he feels normal. He denies fevers, chills, lightheadedness, weakness, chest pain, shortness of breath, nausea, vomiting, abdominal pain, diarrhea, or swelling. He repeats that he is waiting for his brother to come see him. CT head completed and without acute changes. No deficits noted. He knows he's in the hospital, though believed it was 2018 at first and had to be reminded of the New Year. No slurred speech, no confusion. Well appearing. 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 Cardiovascular: Yes: AFIB, CHF - Past Surgical History Past Surgical History: Yes: AICD - Smoking History Smoking history: Former smoker Have you smoked in the past 12 months: No If you are a former smoker, when did you quit?: 50 years ago - Alcohol/Substance Use Hx Alcohol Use: No - Social History Usual Living Arrangement: Yes: Assisted ADL: Support Services History of Recent Travel: No Home Medications - Allergies Allergies/Adverse Reactions: Allergies Allergy/AdvReac Type Severity Reaction Status Date / Time No Known Allergies Allergy Verified 08/08/18 15:17 - Home Medications Home Medications: Ambulatory Orders clonazePAM [Klonopin -] 0.5 mg PO Q12H 04/26/17 Ascorbate Calcium [Vitamin C] 500 mg PO DAILY #30 tablet 04/28/17 Losartan Potassium [Cozaar] 25 mg PO DAILY #30 tab 04/28/17 Multivitamins [Multivit ([facility] Formulary)] 1 tab PO DAILY #30 tab 04/28/17 Acetaminophen 650 mg PO Q6H PRN 02/10/18 Carbidopa/Levodopa 25/100 [Sinemet 25/100 -] 1 each PO 0900,1300,1700,2100 02/10 Menthol [Bengay Ultra Strength] 1 each TP DAILY 02/10/18 Polyvinyl Alcohol [Artificial Tears] 1 drop OU BID 02/10/18 Warfarin Na [Coumadin -] 2 mg PO DAILY 02/10/18 Docusate Sodium [Colace -] 100 mg PO TID capsule 02/12/18 Sennosides [Senna -] 2 tab PO HS tablet 02/12/18 Metoprolol Succinate [Toprol XL -] 25 mg PO BID 08/08/18 Warfarin Na [Coumadin] 2.5 mg PO DAILY 08/08/18 Family Disease History - Family Disease History Family History: Unable to Obtain Review of Systems Findings/Remarks: Full review of systems obtained, as per HPI and otherwise negative. Of note patient does have dementia so may not be accurate. Physical Examination Vital Signs: Vital Signs Temperature 36.6 C 08/08/18 15:17 Pulse Rate 57 L 08/08/18 18:00 Respiratory Rate 18 08/08/18 18:00 Blood Pressure 116/75 08/08/18 18:00 O2 Sat by Pulse Oximetry (%) 99 08/08/18 18:00 Constitutional: Yes: Well Nourished, No Distress, Calm Eyes: Yes: Conjunctiva Clear, PERRL HENT: Yes: Atraumatic, Normocephalic Cardiovascular: Yes: Regular Rate and Rhythm. No: Gallop, Murmur, Rub Respiratory: Yes: Regular, CTA Bilaterally. No: Rales, Rhonchi, Wheezes Gastrointestinal: Yes: Normal Bowel Sounds, Soft. No: Distention, Tenderness Extremities: Yes: WNL Edema: No Neurological: CN intact, knows person, place, no slurred speech, no facial droop , strength symetric and equal b/l, sensory intact CBCD WBC 6.7 K/mm3 (4.0-10.0) 08/09/18 05:55 RBC 4.44 M/mm3 (4.00-5.60) 08/09/18 05:55 Hgb 13.7 GM/dL (11.7-16.9) 08/09/18 05:55 Hct 42.1 % (35.4-49) 08/09/18 05:55 MCV 94.8 fl (80-96) 08/09/18 05:55 MCHC 32.5 g/dl (32.0-35.9) 08/09/18 05:55 RDW 14.3 % (11.9-15.9) 08/09/18 05:55 Plt Count 172 K/MM3 (134-434) 08/09/18 05:55 MPV 8.2 fl (7.5-11.1) 08/09/18 05:55 CMP Sodium 139 mmol/L (136-145) 08/09/18 06:00 Potassium 4.2 mmol/L (3.5-5.1) 08/09/18 06:00 Chloride 109 mmol/L (98-107) H 08/09/18 06:00 Carbon Dioxide 23 mmol/L (21-32) 08/09/18 06:00 Anion Gap 7 MMOL/L (8-16) L 08/09/18 06:00 BUN 24 mg/dL (7-18) H 08/09/18 06:00 Creatinine 0.9 mg/dL (0.55-1.3) 08/09/18 06:00 Creat Clearance w eGFR > 60 (>60) 08/09/18 06:00 Random Glucose 115 mg/dL (74-106) H 08/09/18 06:00 Calcium 8.6 mg/dL (8.5-10.1) 08/09/18 06:00 Total Bilirubin 0.3 mg/dL (0.2-1) 08/08/18 20:36 AST 16 U/L (15-37) 08/08/18 20:36 ALT 27 U/L (13-61) 08/08/18 20:36 Alkaline Phosphatase 74 U/L (45-117) 08/08/18 20:36 Total Protein 6.3 g/dl (6.4-8.2) L 08/08/18 20:36 Albumin 3.2 g/dl (3.4-5.0) L 08/08/18 20:36 CARDIAC ENZYMES Creatine Kinase 170 IU/L (26-308) 08/09/18 08:10 Troponin I 0.06 ng/ml (0.00-0.05) H 08/09/18 08:[address] head reviewed Plan 78 year old male who comes in from [facility] with weakness and possible AMS. Per ER resident patient presented with his son. His son stated that he noted his father was weaker than normal and also had slower speech. The staff at [facility] also noted weakness and decreased strength in his R arm and sent him in for head CT to evaluate for stroke. Patient reports being asymptomatic and is without complaint. He says he feels normal. He denies fevers, chills, lightheadedness, weakness, chest pain, shortness of breath, nausea, vomiting, abdominal pain, diarrhea, or swelling. He repeats that he is waiting for his brother to come see him. CT head completed and without acute changes. No deficits noted. He knows he's in the hospital, though believed it was 2018 at first and had to be reminded of the New Year. No slurred speech, no confusion. Well appearing. Possibly dehydration and brief AMS. Of note, also on Xanax bid, reduced to once a day, in agreement with this. Given hydration, appears to be at baseline. Does not require MRI at this time as he is at baseline without deficits. Plan for return to long-term today. Medical optimization per primary team.
--- NOTE | 2018-08-09 09:52 | EKG ---
Test Reason : Blood Pressure : / mmHG Vent. Rate : 070 BPM Atrial Rate : 070 BPM P-R Int : 214 ms QRS Dur : 082 ms QT Int : 388 ms P-R-T Axes : 064 015 -47 degrees QTc Int : 419 ms BASELINE ARTIFACT LIKELY SINUS RHYTHM WITH APCS T WAVE ABNORMALITY, CONSIDER INFERIOR ISCHEMIA ABNORMAL ECG WHEN COMPARED WITH ECG OF 10-FEB-2018 07:58, SINUS RHYTHM APPEARS TO HAVE REPLACED ATRIAL FIBRILLATION VENT. RATE HAS DECREASED BY 54 BPM Confirmed by TERRELL ROWLEY MD ([id number]) on 08/09/2018 9:52:15 AM Referred By: Confirmed By:TERRELL ROWLEY MD
[2018-08-09] MEDS ORDERED: MULTIVITAMINS (DAILY MVI) TABLET (FP) PO SCH (10:00)
[2018-08-09] MEDS ORDERED: LOSARTAN POTASSIUM 25 MG TABLET PO SCH (10:00)
[2018-08-09] MEDS ORDERED: ASCORBIC ACID 500 MG TABLET (FP) PO SCH (10:00)
[2018-08-09] MEDS: ARTIFICIAL TEARS (POLYVINYL ALCOHOL) OPTH DROPS OU SCH (10:10)
--- NOTE | 2018-08-09 10:17 | CON.CARD ---
Consult Consult Specialty:: cardio - History of Present Illness Chief Complaint: weakness, speech abn History of Present Illness: 78 M sent for slurred speech (per son) and weakness and decreased strength in his R arm. CT head in ER no acute changes. seen by neuro who appreciated no focal deficit and felt unlikely acute TIA/CVA (? med-induced or dehydration related). 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 Cardio/Vascular: Yes: AFIB, CHF - Past Surgical History Past Surgical History: Yes: AICD - Alcohol/Substance Use Hx Alcohol Use: No - Smoking History Smoking history: Former smoker Have you smoked in the past 12 months: No If you are a former smoker, when did you quit?: 50 years ago - Social History ADL: Support Services History of Recent Travel: No Home Medications - Allergies Allergies/Adverse Reactions: Allergies Allergy/AdvReac Type Severity Reaction Status Date / Time No Known Allergies Allergy Verified 08/08/18 15:17 - Home Medications Home Medications: Ambulatory Orders clonazePAM [Klonopin -] 0.5 mg PO Q12H 04/26/17 Ascorbate Calcium [Vitamin C] 500 mg PO DAILY #30 tablet 04/28/17 Losartan Potassium [Cozaar] 25 mg PO DAILY #30 tab 04/28/17 Multivitamins [Multivit ([facility] Formulary)] 1 tab PO DAILY #30 tab 04/28/17 Acetaminophen 650 mg PO Q6H PRN 02/10/18 Carbidopa/Levodopa 25/100 [Sinemet 25/100 -] 1 each PO 0900,1300,1700,2100 02/10 Menthol [Bengay Ultra Strength] 1 each TP DAILY 02/10/18 Polyvinyl Alcohol [Artificial Tears] 1 drop OU BID 02/10/18 Warfarin Na [Coumadin -] 2 mg PO DAILY 02/10/18 Docusate Sodium [Colace -] 100 mg PO TID capsule 02/12/18 Sennosides [Senna -] 2 tab PO HS tablet 02/12/18 Metoprolol Succinate [Toprol XL -] 25 mg PO BID 08/08/18 Family Disease History - Family Disease History Family History: Unable to Obtain Review of Systems Unable to obtain ROS, reason: pt non-verbal Vital Signs: Vital Signs Temperature 98.5 F 08/09/18 06:26 Pulse Rate 86 08/09/18 06:26 Respiratory Rate 19 08/09/18 06:26 Blood Pressure 127/65 08/09/18 06:26 O2 Sat by Pulse Oximetry (%) 98 08/08/18 20:15 Constitutional: Yes: Well Nourished, No Distress Eyes: No: Sclera Icterus HENT: No: Nasal Congestion Neck: No: Decreased ROM Respiratory: Yes: CTA Bilaterally (not deep breaths for exam). No: Accessory Muscle Use, Rales, Wheezes Gastrointestinal: Yes: Normal Bowel Sounds. No: Distention, Hepatomegaly, Palpable Mass, Tenderness Cardiovascular: Yes: Regular Rate and Rhythm JVD: No Carotid Bruit: No PMI: Non-Displaced Heart Sounds: Yes: S1, S2. No: Gallop Murmur: No: Systolic Murmur, Diastolic Murmur Musculoskeletal: Yes: Other (No kyphosis) Extremities: No: Cold, Cyanosis Edema: No Peripheral Pulses: 2+ Left Carotid, 2+ Right Carotid, 2+ Left Doralis Pedis, 2+ Right Dorsalis Pedis Integumentary: No: Jaundice Neurological: Yes: Alert. No: Seizure Psychiatric: No: Agitated - Other Data Labs, Other Data: CBC, BMP 08/09/18 05:55 08/09/18 06:00 INR, PTT INR 3.35 (0.83-1.09) H 08/09/18 05:55 Troponin, BNP 08/08/18 08/08/18 08/09/18 15:50 20:36 02:00 Troponin I 0.12 H 0.11 H 0.09 H 08/09/18 08:10 Troponin I 0.06 H Troponin, BNP 08/08/18 08/08/18 08/09/18 15:50 20:36 02:00 Troponin I 0.12 H 0.11 H 0.09 H 08/09/18 08:10 Troponin I 0.06 H Assessment/Plan ECG: NSR with APCs. nonsp ST-Ts are not changed vs prior 02/10 CXR: clear james gs Echo 09/2017 EF 15-25% (beat to beat variability), tds for rwma but global HK with additional AKof basal-distal inf and inflat restrepo. ppm septal motion, nl rv , 1+monique, mild to mod ecc AR, 1+ MR, mod TR with at least mod phtn. suboptimal ivc views, but appears small trivial pericardial effusion Assessment/Plan afib - initially presented with rapid rate during 02/10 admit here after missing dose of toprol at home - increased toprol to 50 bid here with good effect - (ICD [facility] here showed frequent episodes of AT, longest 86 min 55 sec, episodes range 170-171 bpm. 500 AMS episodes longest 2 hours 58 min, rate range 80-160 bpm) - VSs stable here--cont home meds -on coumadin for stroke prophylaxis, cont same systolic heart failure/ICD - EF 15-25% 10/11 echo - continue home losartan, metoprolol (labs stable here) history of PAD - s/p angioplasty 03/2016 - denies claudication, continue statin, warfarin parkinson's disease - on home meds no further inpatient cv treatment or workup needed
[2018-08-09 13:41] VITALS: BP 119/65
== END 2018-08-09 14:12 | DRG 682 ==
LOC: JER 15:15 → JERBED 17:51
PROVIDERS: ADMIT Internal Medicine; ATTEND Nurse Practitioner Family
DX: N17.9 Acute kidney failure, unspecified (principal); G93.41 Metabolic encephalopathy; I50.22 Chronic systolic (congestive) heart failure; E86.0 Dehydration; I48.2 Chronic atrial fibrillation; I11.0 Hypertensive heart disease with heart failure; G20 Parkinson's disease; Z95.0 Presence of cardiac pacemaker
CPT/HCPCS: 36415; 70450-TC; 71045-TC-FY; 80048; 80053; 81003; 82465; 82550; 82553; 82962; 83718; 83721; 83735; 84100; 84478; 84484; 85025; 85610; 86850; 86900; 86901; 93005; 93010; 99285-25; J7030

== ENCOUNTER 2019-09-17 12:15 | Observation (INO) | payer OTHER ==
[2019-09-17 12:30] VITALS: BMI 19.3
[2019-09-17] MEDS ORDERED: SODIUM CHLORIDE 1,837 ML IV ONE (13:02)
--- NOTE | 2019-09-17 13:15 | PDOC ---
History of Present Illness - General Chief Complaint: Weakness Stated Complaint: WEAKNESS Time Seen by Provider: 09/17/19 13:02 History Source: Patient Exam Limitations: No Limitations - History of Present Illness Initial Comments: 09/17/19 13:14 Source: Patient and family (Rohan Jorgnesen [phone]) PCP: Marco Antonio Wu Cards: Dr. Germain HPI: 79yo M PMH Parkinson's disease, CHF, vertigo, afib on warfarin s/p pacemaker, presenting with weakness since this morning. Per family member, patient was not acting normal this morning, complained of weakness. Then went to have breakfast, stated that he was not hungry which was very concerning given his normally robust appetite. Family and visiting nurse became increasingly concerning, took a BP that was 74 systolic, so he brewed a tea and called 911. Family reports that the patient has not had bloody or dark stools - he has been checking as per cardiology recommendation when patient was initiated on warfarin therapy. Patient denies any chest pain, cough, fevers, chills, nausea, vomiting, lightheadedness, dizziness. Patient denies any pain, except the pain from the needle for blood draw. All: NKDA PMH: As above PSH: PPM implantation SHx: Former smoker. Denies alcohol or illicits. Past History - Past Medical History Allergies/Adverse Reactions: Allergies Allergy/AdvReac Type Severity Reaction Status Date / Time No Known Allergies Allergy Verified 08/08/18 15:17 Home Medications: Ambulatory Orders clonazePAM [Klonopin -] 0.5 mg PO Q12H 04/26/17 Ascorbate Calcium [Vitamin C] 500 mg PO DAILY #30 tablet 04/28/17 Losartan Potassium [Cozaar] 25 mg PO DAILY #30 tab 04/28/17 Multivitamins [Multivit ([facility] Formulary)] 1 tab PO DAILY #30 tab 04/28/17 Acetaminophen 650 mg PO Q6H PRN 02/10/18 Carbidopa/Levodopa 25/100 [Sinemet 25/100 -] 1 each PO 0900,1300,1700,2100 02/10 Menthol [Bengay Ultra Strength] 1 each TP DAILY 02/10/18 Polyvinyl Alcohol [Artificial Tears] 1 drop OU BID 02/10/18 Warfarin Na [Coumadin -] 2 mg PO DAILY 02/10/18 Docusate Sodium [Colace -] 100 mg PO TID capsule 02/12/18 Sennosides [Senna -] 2 tab PO HS tablet 02/12/18 Metoprolol Succinate [Toprol XL -] 25 mg PO BID 08/08/18 Cardiac Disorders: Yes COPD: No CHF: Yes HTN: Yes Psychiatric Problems: Yes (anxiety) - Surgical History Cardiac Surgery: Yes (pacemaker) - Psycho Social/Smoking Cessation Hx Smoking History: Former smoker Have you smoked in the past 12 months: No If you are a former smoker, when did you quit?: 50 years ago Information on smoking cessation initiated: No Hx Alcohol Use: No Drug/Substance Use Hx: No Substance Use Type: None Hx Substance Use Treatment: No Review of Systems - Review of Systems Able to Perform ROS?: Yes Is the patient limited Lao proficient: No Constitutional: Yes: Weakness. No: Chills, Fever HEENTM: No: Nose Congestion, Throat Pain Respiratory: No: Cough, Shortness of Breath, Wheezing Cardiac (ROS): No: Chest Pain, Edema, Irregular Heart Rate, Lightheadedness, Palpitations, Syncope, Chest Tightness ABD/GI: No: Blood Streaked Bowels, Constipated, Diarrhea, Nausea, Rectal Bleeding, Vomiting, Tarry Stools : No: Burning, Dysuria, Frequency Musculoskeletal: No: Muscle Pain, Muscle Weakness, Neck Pain Integumentary: No: Pruritus, Rash Neurological: Yes: Weakness. No: Headache, Numbness, Tingling Psychiatric: Yes: Change in Appetite Endocrine: No: Increased Thirst, Increased Urine, Change in Weight Hematologic/Lymphatic: No: Anemia, Blood Clots, Easy Bleeding All Other Systems: Reviewed and Negative *Physical Exam - Vital Signs Last Vital Signs Temp Pulse Resp BP Pulse Ox 132 H 23 H 123/87 100 09/17/19 13:07 09/17/19 13:07 09/17/19 13:07 09/17/19 13:07 - Physical Exam 09/17/19 13:53 Vitals reviewed, AF, tacycardic to 130s, BP labile ranging from SBP 90s to 130s GEN: Well appearing, appears stated age, NAD, comfortable. AAOx3. HEENT: NCAT, EOMI, PERRL. Sclera anicteric, noninjected. No facial asymmetry. Moist mucous membranes. Normal voice. Trachea midline. CV: RRR, S1/S2, no murmurs / rubs / gallops appreciated. LUNG: CTAB, normal work of breathing. No wheezes, rales, rhonchi. No cough. Speaking full sentences. GI: Soft, NTND, +BS, no guarding, no rebound. No masses. Neg CVAT b/l. EXTREMITIES: 2+ distal pulses. No LE edema. No obvious deformities of all extremities. SKIN: Warm, dry, no rashes appreciated, non-jaundiced. PSYCH: Normal mood and affect. Cooperative and appropriate. NEURO: CN grossly intact. Moving all extremities well. Normal strength and sensation grossly. ED Treatment Course - LABORATORY CBC & Chemistry Diagram: 09/17/19 13:00 09/17/19 13:00 - RADIOLOGY Radiology Studies Ordered: Category Date Time Status CHEST X-RAY PORTABLE* [RAD] Stat Radiology 09/17/19 13:02 Ordered Medical Decision Making - Medical Decision Making 09/17/19 13:40 79yo M PMH Parkinson's disease, CHF, vertigo, afib on warfarin s/p pacemaker, presenting with weakness since this morning. Per family member, patient was not acting normal this morning, complained of weakness. History notable for sudden onset weakness, loss of appetite this morning, no other symptoms. Physical exam notable for HR in 130s, labile blood pressure, no pallor, no fever rectally, non -focal exam. DDX: Arrhythmia, less likely GI bleed, infectious source, vascular event. - Patient placed on eye specialist - Vitals concerning for labile BP and Tachycardic 125-135bpm in afib pattern - [address] bilateral AC fossa - IVF started with 1L NS - Septic workup ordered - Bedside BGM wnl - EKG: c/w Afib with RVR - Rectal temp 98.5 - Digoxin 0.5mg given 09/17/19 14:57 - Patient responsive to digoxin, HR in 60s, weakness resolved - D5 0.45% NS @ 100mL/hr - Lactate 2.5 - No leukocytosis or anemia - Electrolytes, renal function, LFTs wnl - INR 1.6 - No UTI Dispo: Admit Tele - Afib with RVR, responsive to digoxin, symptomatic improvement - Lactic acidosis 09/17/19 15:46 - Sign-out given to Dr. Bo Discharge - Discharge Information Problems reviewed: Yes Clinical Impression/Diagnosis: Atrial fibrillation with RVR, Lactic acidosis Condition: Guarded - Admission Yes - Follow up/Referral Referrals: Marco Antonio Wu MD [Primary Care Provider] - - Patient Discharge Instructions - Post Discharge Activity
[2019-09-17] MEDS ORDERED: DIGOXIN 0.5 MG/2 ML AMPUL IVPUSH ONE (13:21)
[2019-09-17] MEDS ORDERED: DIGOXIN 0.5 MG/2 ML AMPUL ONE (13:29)
[2019-09-17 13:32] LABS: VENOUS PH 7.33 (7.31-7.41)
[2019-09-17 13:33] LABS: VENOUS PC02 54.3 mmHg (38-52); VENOUS PO2 < 49 mmHg (28-48)
[2019-09-17 13:35] LABS: PH,URINE 7.5 (5.0-8.0); URINE APPEARANCE CLEAR; URINE BILIRUBIN NEGATIVE (NEGATIVE); URINE COLOR YELLOW; URINE GLUCOSE (UA) NEGATIVE (NEGATIVE); URINE KETONE NEGATIVE (NEGATIVE); URINE LEUK ESTERASE NEGATIVE (NEGATIVE); URINE NITRITE NEGATIVE (NEGATIVE); URINE PROTEIN NEGATIVE (NEGATIVE); URINE UROBILINOGEN 0.2 mg/dL (0.2-1.0)
[2019-09-17 13:47] LABS: INR 1.6 (0.83-1.09)
[2019-09-17 13:49] LABS: ACTIVATED PTT 42.9 SECONDS (25.2-36.5)
[2019-09-17 14:05] LABS: ALBUMIN 4.4 g/dl (3.4-5.0); BILIRUBIN,TOTAL 0.6 mg/dL (0.2-1); BLOOD UREA NITROGEN 20.4 mg/dL (7-18); CREATININE 1.3 mg/dL (0.55-1.3); MAGNESIUM 2.3 mg/dL (1.8-2.4); POTASSIUM 4.1 mmol/L (3.5-5.1); TOT PROT 8.5 g/dl (6.4-8.2)
[2019-09-17 14:14] LABS: BASO % 0.6 % (0-2.0); EOS % 0.8 % (0-4.5); HEMOGLOBIN 16.1 GM/dL (11.7-16.9); LYMPH % 13.2 % (8-40); MCH 32.1 pg (25.7-33.7); MCHC 33.5 g/dl (32.0-35.9); MEAN CELL VOLUME 95.9 fl (80-96); MEAN PLT VOLUME 9.1 fl (7.5-11.1); MONO % 7.3 % (3.8-10.2); NEUT % 78.1 % (42.8-82.8); PLATELET COUNT 211 K/MM3 (134-434); RDW 14.1 % (11.9-15.9); WHITE BLOOD COUNT 6.6 K/mm3 (4.0-10.0)
--- NOTE | 2019-09-17 14:24 | PDOC ---
Documentation entered by Colton Aparicio SCRIBE, acting as scribe for Adrien Botello MD. Adrien Botello MD: This documentation has been prepared by the Alessandra hancock Angel, SCRIBE, under my direction and personally reviewed by me in its entirety. I confirm that the documentation accurately reflects all work, treatment, procedures, and medical decision making performed by me. Attending Attestation - Resident Resident Name: Luis Marques - ED Attending Attestation I have performed the following: I have examined & evaluated the patient, The case was reviewed & discussed with the resident, I agree w/resident's findings & plan, Exceptions are as noted - HPI HPI: 09/17/19 13:44 The patient is a 79 year old male, with a significant past medical history of vertigo, parkinsons disease, Afib (on Warfarin), HTN, CHF, arrhythmia (s/p PPM) , who presents to the emergency department for generalized weakness since this morning. Brother at bedside states the patient refused breakfast this morning and his BP was 74 systolic, prompting the family to call EMS. Allergies: NKDA Past surgical history: PPM. Social History: Former smoker (Quit 50 years ago). PCP: Dr. Marco Antonio Wu - Physicial Exam PE: 09/17/19 14:20 Patient is awake and alert, frail-appearing, in no distress, Tachycardic, hypotensive Normocephalic, atraumatic PERRLA, Conjunctiva- pink mm-dr abdomen soft, nontender, nondistended irregularly irregulary cta Follows commands, moving all extremities symmetrically, resting tremor noted bilaterally, cogwheel rigidity is noted bilaterally; - Medical Decision Making 09/17/19 14:22 79-year-old patient with multiple comorbidities, history of A. fib on Coumadin, advanced Parkinson's, status post pacemaker placement presents with generalized weakness and decreased intake of p.o. solids and liquids. Initial evaluation, patient is noted to be tachycardic and hypotensive. EKG shows what appears to be narrow complex tachycardia with variable conduction at the rate of 132. Patient's afebrile by rectum. Will aggressively hydrated, will consider IV digoxin for rate control; will consider cardioversion if patient develops pulmonary edema, shortness of breath, chest pain, alteration in mentation. Will obtain CBC/CMP/mag/cardiac profile. Will evaluate with chest x-ray to rule out infiltrate or effusion; will reascess. 09/17/19 14:46 Patient reassessed. Patient resting comfortably. Repeat heart rate is noted to be 60 with EKG showing atrially paced rhythm with a ventricular rate of 60. Chest x-ray reveals no evidence of widened mediastinum/effusion or infiltrate. We will continue to hydrate. Likely admission.
[2019-09-17] MEDS ORDERED: DEXTROSE 5%-0.45% SALINE 1,000 ML IV SCH (15:00)
[2019-09-17] MEDS ORDERED: ACETAMINOPHEN 325 MG TABLET (FP) PO PRN (16:54)
[2019-09-17] MEDS ORDERED: metoPROLOL SUCCINATE 25 MG TAB.SR.24H (FP) PO ONE (17:41)
[2019-09-17] MEDS ORDERED: WARFARIN NA 1 MG TABLET (FP) PO SCH (18:00)
[2019-09-17] MEDS ORDERED: PNEUMOC 13-VAL CONJ-DIP CRM/PF 0.5 ML DISP.SYRIN IM ONE (18:01)
--- NOTE | 2019-09-17 18:22 | PN ---
Teaching Attending Note Name of Resident: Kevon Bo ATTENDING PHYSICIAN STATEMENT I saw and evaluated the patient. I reviewed the resident's note and discussed the case with the resident. I agree with the resident's findings and plan as documented. SUBJECTIVE: seen with Dr. Bo who helped with Sami translation CC: " feeling weak" HPI: 79 y/o man with h/o HTN, A fib on coumadin , CHF, vertigo, ICD placement , PArkinson's , who presented frm home due to not feeling well. he was at his usual state of health until this am , when brother noticed that he was a little more fatigued and tired , and did not eat breakfast. upon arrival to ER he was in A fib with RVR. he is compliant with meds. he does not have any cough or dyspnea or abd pain or dysuria or diarrhea. BP per aid was 76 Systolic . he was given a dose of dig in ER and his HR imrpoved. he feels much better now . OBJECTIVE: NAd , awake , alert, cooperative . MMM, tongue at mid line , archus senalis b/l . CV: RRR, possible 2/6 Sm at LLSB. mild bulge in L EJ Lungs: CTAB Abd: soft, NT, Nd , NL BS Ext: No edema or erythema . no fungal infection . dry skin onlower legs and feet neuro: EOMI, round equal pupils, reactive to lgith , EOMI, very minimal asymetry in mouth ( R droop) but resolves with smiling. no upper droop. strength 5/5 in upper and lower extremities proximally and distally. ASSESSMENT AND PLAN: 79 y/o man with h/o HTN, A fib on coumadin , systolic CHF , vertigo, ICD placement , PArkinson's , PVD with angioplasty 2015, who presented frm home due to not feeling well.he was found to be in A fib with RVR 1- A fib with RVR: now rate improved , in 60-low 100s. BP improved. - Not sure of trigger. compliant with meds, no signs of infection . NL TSH . ? worsening valvular problem - increase his toprol frm 25 to 50 mg. received 25 this am will give extra 25 now - not sure when his last echo was, will ask card about recent one in office - hold of onrepeating echo now - cont coumadin , increase dose to 3 mg ( recently cahnged to 2 ) 2- H/o Systolic heart failure : per old card notes, EF in 2018 was 15-25%. with global hypokinesia . - cont ARB , cont toprol - looks euvolemic now . dc IVF to avoid decompensation 3- h/o Parkinson's : cont sinemet 4- DVT PX: on coumadin . use SCDs
--- NOTE | 2019-09-17 18:37 | HP ---
CHIEF COMPLAINT: feeling unwell. Decreased appetite PCP: Dr. Enriquez Cardio: Dr. Germain Neuro: at [facility] HISTORY OF PRESENT ILLNESS: History taken from patient aided by visiting nurse and pt's brother present at bedside. Pt is an 79 y/o M with PMH PD, AF on coumadin (prior episodes of RVR), ?CHF vs arrhythmia (no echo here, but is s/p ICD), Vertigo who presented to ED brought by visiting nurse for complaint of feeling "unwell" and low BP. Per nurse, pt sat down to breakfast and said he wasn't feeling well. She states she took his blood pressure and go 75 systolic at which point she called for an ambulance. He does admit to mild shortness of breath lasting a few minutes this morning prior to arriving in ED. Pt denies feeling unwell prior to this morning. Denies fever, chills, cough, headache, chest pain, nausea, vomiting, diarrhea, constipation, change in urination or defecation. In ED, pt was found to have labile BP with pressures in the 100s/50s to 120s/60s. Of note, during my interview, several BP cycles were performed and pt maintained BP 120s/80s despite labile heart rate alternating b/n 120s and 60. ER course was notable for: (1) as above (2) (3) Recent Travel: denies PAST MEDICAL HISTORY: PD, AF on coumadin (prior episodes of RVR), ?CHF vs arrhythmia (no echo here, but is s/p ICD), Vertigo PAST SURGICAL HISTORY: ICD Social History: Smoking: remote history 30 years ago Alcohol: remote history social drinking Drugs: denies Lives with brother. Former resident of [facility] Allergies No Known Allergies Allergy (Verified 08/08/18 15:17) HOME MEDICATIONS: Home Medications Medication Instructions Recorded Ascorbate Calcium [Vitamin C] 500 mg PO DAILY #30 tablet 04/28/17 Losartan Potassium [Cozaar] 25 mg PO DAILY #30 tab 04/28/17 Multivitamins [Multivit ([facility] 1 tab PO DAILY #30 tab 04/28/17 Formulary)] Acetaminophen 650 mg PO Q6H PRN 02/10/18 Polyvinyl Alcohol [Artificial 1 drop OU BID 02/10/18 Tears] Warfarin Na [Coumadin -] 2 mg PO DAILY 02/10/18 Docusate Sodium [Colace -] 100 mg PO TID capsule 02/12/18 Sennosides [Senna -] 2 tab PO HS tablet 02/12/18 Metoprolol Succinate [Toprol XL -] 25 mg PO DAILY 08/08/18 Carbidopa/Levodopa 25/250 [Sinemet 1 each PO QID 09/17/19 25/250 -] Mv-Mn/Iron/Folic Acid/Herb 190 1 each PO DAILY 09/17/19 [Vitamin D3 Complete Caplet] REVIEW OF SYSTEMS CONSTITUTIONAL: Absent: fever, chills, diaphoresis, generalized weakness, malaise, loss of appetite, weight change HEENT: Absent: rhinorrhea, nasal congestion, throat pain, throat swelling, difficulty swallowing, mouth swelling, ear pain, eye pain, visual changes CARDIOVASCULAR: Absent: chest pain, syncope, palpitations, irregular heart rate, lightheadedn ess, peripheral edema RESPIRATORY: Absent: cough, shortness of breath, dyspnea with exertion, orthopnea, wheezing, stridor, hemoptysis GASTROINTESTINAL: Absent: abdominal pain, abdominal distension, nausea, vomiting, diarrhea, constipation, melena, hematochezia GENITOURINARY: Absent: dysuria, frequency, urgency, hesitancy, hematuria, flank pain, genital pain MUSCULOSKELETAL: Absent: myalgia, arthralgia, joint swelling, back pain, neck pain SKIN: Absent: rash, itching, pallor HEMATOLOGIC/IMMUNOLOGIC: Absent: easy bleeding, easy bruising, lymphadenopathy, frequent infections ENDOCRINE: Absent: unexplained weight gain, unexplained weight loss, heat intolerance, cold intolerance NEUROLOGIC: Absent: headache, focal weakness or paresthesias, dizziness, unsteady gait, seizure, mental status changes, bladder or bowel incontinence PSYCHIATRIC: Absent: anxiety, depression, suicidal or homicidal ideation, hallucinations. PHYSICAL EXAMINATION Vital Signs - 24 hr 09/17/19 09/17/19 09/17/19 12:23 13:02 13:07 Temperature 98.5 F Pulse Rate 69 Pulse Rate [ 132 H Apical] Respiratory 18 23 H Rate Blood Pressure 63/39 L Blood Pressure 123/87 [Right Arm] O2 Sat by Pulse 100 100 Oximetry (%) 09/17/19 09/17/19 09/17/19 14:09 14:15 14:19 Temperature Pulse Rate Pulse Rate [ 118 H 122 H 61 Apical] Respiratory 26 H 20 Rate Blood Pressure Blood Pressure 104/45 L 122/54 L [Right Arm] O2 Sat by Pulse 100 99 Oximetry (%) 09/17/19 09/17/19 09/17/19 14:23 14:44 16:12 Temperature 98.4 F Pulse Rate Pulse Rate [ 117 H 117 H 116 H Apical] Respiratory 20 22 H 21 H Rate Blood Pressure Blood Pressure 122/54 L 133/90 121/54 L [Right Arm] O2 Sat by Pulse 100 100 99 Oximetry (%) 09/17/19 16:50 Temperature 98.5 F Pulse Rate Pulse Rate [ 116 H Apical] Respiratory 20 Rate Blood Pressure Blood Pressure 137/64 [Right Arm] O2 Sat by Pulse Oximetry (%) Gen: AAOx3 with minor prompting, NAD HEENT: NCAT, PERRL, EOMI Neck: no jvd, supple, no thyromegally Cardio: rrr, normal s1s2, no mrg noted Pulm: cta b/l Abd: soft, nontender, nondistended Ext: no edema Laboratory Results - last 24 hr 09/17/19 09/17/19 09/17/19 12:43 13:00 13:00 WBC RBC Hgb Hct MCV MCH MCHC RDW Plt Count MPV Absolute Neuts (auto) Neutrophils % Lymphocytes % Monocytes % Eosinophils % Basophils % Nucleated RBC % PT with INR 19.00 H INR 1.60 H PTT (Actin FS) 42.9 H VBG pH POC VBG pCO2 POC VBG pO2 VBG HCO3 VBG O2 Sat (Deni) VBG Base Excess Sodium Potassium Chloride Carbon Dioxide Anion Gap BUN Creatinine Est GFR (CKD-EPI)AfAm Est GFR (CKD-EPI)NonAf POC Glucometer 121 Random Glucose Lactic Acid Calcium Magnesium Total Bilirubin AST ALT Alkaline Phosphatase Creatine Kinase 119 Troponin I 0.02 Total Protein Albumin TSH Urine Color Urine Appearance Urine pH Ur Specific [place] Urine Protein Urine Glucose (UA) Urine Ketones Urine Blood Urine Nitrite Urine Bilirubin Urine Urobilinogen Ur Leukocyte Esterase 09/17/19 09/17/19 09/17/19 13:00 13:00 13:00 WBC 6.6 RBC 5.00 Hgb 16.1 Hct 48.0 MCV 95.9 MCH 32.1 MCHC 33.5 RDW 14.1 Plt Count 211 D MPV 9.1 D Absolute Neuts (auto) 5.2 Neutrophils % 78.1 Lymphocytes % 13.2 D Monocytes % 7.3 Eosinophils % 0.8 Basophils % 0.6 Nucleated RBC % 0 PT with INR INR PTT (Actin FS) VBG pH POC VBG pCO2 POC VBG pO2 VBG HCO3 VBG O2 Sat (Deni) VBG Base Excess Sodium 137 Potassium 4.1 Chloride 102 Carbon Dioxide 27 Anion Gap 8 BUN 20.4 H Creatinine 1.3 Est GFR (CKD-EPI)AfAm 59.73 Est GFR (CKD-EPI)NonAf 51.53 POC Glucometer Random Glucose 138 H Lactic Acid Calcium 10.0 Magnesium 2.3 Total Bilirubin 0.6 AST 25 ALT 15 Alkaline Phosphatase 96 Creatine Kinase Troponin I Total Protein 8.5 H Albumin 4.4 TSH 2.36 D Urine Color Yellow Urine Appearance Clear Urine pH 7.5 D Ur Specific [place] 1.012 Urine Protein Negative Urine Glucose (UA) Negative Urine Ketones Negative Urine Blood Negative Urine Nitrite Negative Urine Bilirubin Negative Urine Urobilinogen 0.2 Ur Leukocyte Esterase Negative 09/17/19 09/17/19 13:00 13:42 WBC RBC Hgb Hct MCV MCH MCHC RDW Plt Count MPV Absolute Neuts (auto) Neutrophils % Lymphocytes % Monocytes % Eosinophils % Basophils % Nucleated RBC % PT with INR INR PTT (Actin FS) VBG pH 7.33 POC VBG pCO2 54.3 H POC VBG pO2 < 49 H VBG HCO3 28.1 VBG O2 Sat (Deni) 10.5 L VBG Base Excess 1.2 Sodium Potassium Chloride Carbon Dioxide Anion Gap BUN Creatinine Est GFR (CKD-EPI)AfAm Est GFR (CKD-EPI)NonAf POC Glucometer Random Glucose Lactic Acid 2.5 H* Calcium Magnesium Total Bilirubin AST ALT Alkaline Phosphatase Creatine Kinase Troponin I Total Protein Albumin TSH Urine Color Urine Appearance Urine pH Ur Specific [place] Urine Protein Urine Glucose (UA) Urine Ketones Urine Blood Urine Nitrite Urine Bilirubin Urine Urobilinogen Ur Leukocyte Esterase ASSESSMENT/PLAN: Pt is an 79 y/o M with PMH PD, AF on coumadin (prior episodes of RVR), ?CHF vs arrhythmia (no echo here, but is s/p ICD), Vertigo who presented to ED brought by visiting nurse for complaint of feeling "unwell" and low BP. He was found to have AF with RVR in ED and was admitted to tele. AF with RVR -HR climbs to 120s -ED found pt to have labile HR as well as BP -Was given 1 dose Dig to good effect. BP appears to have stabilized -HR oscillates between 120s and 60 (very likely paced) -? features of tachy katelynn syndrome, though pt not in sinus -Pt follows with Dr. Celia Germain. Spoke with covering physician, Dr. Ramos -Pt had a similar episode 1 year ago and was treated effectively with increased dose of beta bradford -LA with mild elevation is likely due to AF w/ RVR. Pt is volume replete. Will hold fluids -Increase Metoprolol to 50 daily -tele monitoring -Coumadin: last dose 3mg and Thu. Was decreased to 2 mg today. INR 1.6 in ED. Will increase Coumadin to 3 tonight and monitor INR PD -c/w sinemet ? CHF -ICD in place -c/w Losartan provided BP remains stable. Visit type - Emergency Visit Emergency Visit: Yes ED Registration Date: 09/17/19 Care time: The patient presented to the Emergency Department on the above date and was hospitalized for further evaluation of their emergent condition. - New Patient This patient is new to me today: Yes Date on this admission: 09/17/19 - Critical Care Critical Care patient: No ATTENDING PHYSICIAN STATEMENT I saw and evaluated the patient. I reviewed the resident's note and discussed the case with the resident. I agree with the resident's findings and plan as documented. SUBJECTIVE: OBJECTIVE: ASSESSMENT AND PLAN:
[2019-09-17] MEDS ORDERED: FLU VACCINE QUAD 60 MCG/0.5 ML (MDV 19-20) IM ONE (19:00)
[2019-09-17] MEDS: CARBIDOPA/LEVODOPA 25/250 TABLET (FP) PO SCH (21:16)
[2019-09-17] MEDS: DOCUSATE SODIUM 100 MG CAPSULE (FP) PO SCH (21:42)
[2019-09-17] MEDS: SENNOSIDES 8.6MG TABLET (FP) PO SCH (21:42)
[2019-09-17] MEDS ORDERED: ENOXAPARIN NA (PORCINE) 60 MG/0.6 ML DISP.SYRIN SQ SCH (22:00)
[2019-09-17] MEDS: ARTIFICIAL TEARS (POLYVINYL ALCOHOL) OPTH DROPS OU SCH (22:00)
[2019-09-18] MEDS: DOCUSATE SODIUM 100 MG CAPSULE (FP) PO SCH ×3 (06:09→22:45)
[2019-09-18] MEDS: CARBIDOPA/LEVODOPA 25/250 TABLET (FP) PO SCH ×4 (07:10→22:45)
[2019-09-18 07:20] LABS: BASO % 0.6 % (0-2.0); EOS % 1.2 % (0-4.5); HEMATOCRIT 39.7 % (35.4-49); HEMOGLOBIN 13.3 GM/dL (11.7-16.9); LYMPH % 15.8 % (8-40); MCH 32.3 pg (25.7-33.7); MCHC 33.6 g/dl (32.0-35.9); MEAN CELL VOLUME 96.3 fl (80-96); MEAN PLT VOLUME 8.8 fl (7.5-11.1); MONO % 10.4 % (3.8-10.2); PLATELET COUNT 154 K/MM3 (134-434); RBC 4.13 M/mm3 (4.00-5.60); RDW 13.8 % (11.9-15.9); WHITE BLOOD COUNT 6.3 K/mm3 (4.0-10.0)
[2019-09-18 07:29] LABS: ALBUMIN 3.2 g/dl (3.4-5.0); BILIRUBIN,TOTAL 0.7 mg/dL (0.2-1); BLOOD UREA NITROGEN 16.8 mg/dL (7-18); CREATININE 0.9 mg/dL (0.55-1.3); TOT PROT 6.6 g/dl (6.4-8.2)
[2019-09-18 07:59] LABS: INR 2.11 (0.83-1.09); PROTHROMBIN TIME (PATIENT) 25.1 SEC (9.7-13.0)
[2019-09-18] MEDS ORDERED: LOSARTAN POTASSIUM 50 MG TABLET (FP) PO ONE (09:00)
--- NOTE | 2019-09-18 09:42 | CON.CARD ---
Cardiology Consult (text) - Consultation Consultation Note: Chief Complaint: weakness,palps, low bp History of Present Illness: 79 M sent by vns for weakness,palps, low bp. In er had afib with rvr. After rate controlled pt reports feeling well. No further palps. No sob cp dizzy loc pnd orthopnea le edema. 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 Cardio/Vascular: Yes: AFIB, CHF - Past Surgical History Past Surgical History: Yes: AICD - Alcohol/Substance Use Hx Alcohol Use: No - Smoking History Smoking history: Former smoker Have you smoked in the past 12 months: No If you are a former smoker, when did you quit?: 50 years ago - Social History ADL: Support Services History of Recent Travel: No Home Medications - Allergies Allergies/Adverse Reactions: Allergies Allergy/AdvReac Type Severity Reaction Status Date / Time No Known Allergies Allergy Verified 08/08/18 15:17 Home Medications Medication Instructions Recorded Ascorbate Calcium [Vitamin C] 500 mg PO DAILY #30 tablet 04/28/17 Losartan Potassium [Cozaar] 25 mg PO DAILY #30 tab 04/28/17 Multivitamins [Multivit ([facility] 1 tab PO DAILY #30 tab 04/28/17 Formulary)] Acetaminophen 650 mg PO Q6H PRN 02/10/18 Polyvinyl Alcohol [Artificial 1 drop OU BID 02/10/18 Tears] Warfarin Na [Coumadin -] 2 mg PO DAILY 02/10/18 Docusate Sodium [Colace -] 100 mg PO TID capsule 02/12/18 Sennosides [Senna -] 2 tab PO HS tablet 02/12/18 Metoprolol Succinate [Toprol XL -] 25 mg PO DAILY 08/08/18 Carbidopa/Levodopa 25/250 [Sinemet 1 each PO QID 09/17/19 25/250 -] Mv-Mn/Iron/Folic Acid/Herb 190 1 each PO DAILY 09/17/19 [Vitamin D3 Complete Caplet] Quetiapine Fumarate [Seroquel -] 25 mg PO HS 09/18/19 Family Disease History - Family Disease History Family History: Unable to Obtain Review of Systems Unable to obtain ROS, reason: pt non-verbal Vital Signs: Vital Signs Period Temp Pulse Resp BP Sys/Lauren Pulse Ox Last 24 Hr 97.3 F-98.5 F 60-132 18-26 63-180/39-90 99-100 Constitutional: Yes: Well Nourished, No Distress Eyes: No: Sclera Icterus HENT: No: Nasal Congestion Neck: No: Decreased ROM Respiratory: Yes: CTA Bilaterally . No: Accessory Muscle Use, Rales, Wheezes Gastrointestinal: Yes: Normal Bowel Sounds. No: Distention, Hepatomegaly, Palpable Mass, Tenderness Cardiovascular: Yes: Regular Rate and Rhythm JVD: No Carotid Bruit: No PMI: Non-Displaced Heart Sounds: Yes: S1, S2. No: Gallop Murmur: No: Systolic Murmur, Diastolic Murmur Extremities: No: Cold, Cyanosis Edema: No Peripheral Pulses: 2+ Left Carotid, 2+ Right Carotid, 2+ Left Doralis Pedis, 2+ Right Dorsalis Pedis Integumentary: No: Jaundice diaphoresis Neurological: Yes: Alert. No: Seizure Psychiatric: No: Agitated - Other Data Labs, Other Data: Laboratory Last Values WBC 6.3 K/mm3 (4.0-10.0) 09/18/19 05:50 RBC 4.13 M/mm3 (4.00-5.60) 09/18/19 05:50 Hgb 13.3 GM/dL (11.7-16.9) 09/18/19 05:50 Hct 39.7 % (35.4-49) D 09/18/19 05:50 MCV 96.3 fl (80-96) H 09/18/19 05:50 MCH 32.3 pg (25.7-33.7) 09/18/19 05:50 MCHC 33.6 g/dl (32.0-35.9) 09/18/19 05:50 RDW 13.8 % (11.9-15.9) 09/18/19 05:50 Plt Count 154 K/MM3 (134-434) D 09/18/19 05:50 MPV 8.8 fl (7.5-11.1) 09/18/19 05:50 Absolute Neuts (auto) 4.5 K/mm3 (1.5-8.0) 09/18/19 05:50 Neutrophils % 72.0 % (42.8-82.8) 09/18/19 05:50 Lymphocytes % 15.8 % (8-40) 09/18/19 05:50 Monocytes % 10.4 % (3.8-10.2) H 09/18/19 05:50 Eosinophils % 1.2 % (0-4.5) 09/18/19 05:50 Basophils % 0.6 % (0-2.0) 09/18/19 05:50 Nucleated RBC % 0 % (0-0) 09/18/19 05:50 PT with INR 25.10 SEC (9.7-13.0) H 09/18/19 05:50 INR 2.11 (0.83-1.09) H 09/18/19 05:50 PTT (Actin FS) 42.9 SECONDS (25.2-36.5) H 09/17/19 13:00 VBG pH 7.33 (7.31-7.41) 09/17/19 13:00 POC VBG pCO2 54.3 mmHg (38-52) H 09/17/19 13:00 POC VBG pO2 < 49 mmHg (28-48) H 09/17/19 13:00 VBG HCO3 28.1 mmol/L (23-29) 09/17/19 13:00 VBG O2 Sat (Deni) 10.5 % (70-80) L 09/17/19 13:00 VBG Base Excess 1.2 meq/l (-2-2) 09/17/19 13:00 Sodium 138 mmol/L (136-145) 09/18/19 05:50 Potassium 4.0 mmol/L (3.5-5.1) 09/18/19 05:50 Chloride 106 mmol/L (98-107) 09/18/19 05:50 Carbon Dioxide 26 mmol/L (21-32) 09/18/19 05:50 Anion Gap 6 MMOL/L (8-16) L 09/18/19 05:50 BUN 16.8 mg/dL (7-18) 09/18/19 05:50 Creatinine 0.9 mg/dL (0.55-1.3) 09/18/19 05:50 Est GFR (CKD-EPI)AfAm 93.16 09/18/19 05:50 Est GFR (CKD-EPI)NonAf 80.38 09/18/19 05:50 POC Glucometer 121 UNITS (80-120) 09/17/19 12:43 Random Glucose 91 mg/dL (74-106) 09/18/19 05:50 Lactic Acid 1.4 mmol/L (0.4-2.0) 09/17/19 19:40 Calcium 9.0 mg/dL (8.5-10.1) 09/18/19 05:50 Phosphorus 3.0 mg/dL (2.5-4.9) 09/18/19 05:50 Magnesium 2.0 mg/dL (1.8-2.4) 09/18/19 05:50 Total Bilirubin 0.7 mg/dL (0.2-1) 09/18/19 05:50 AST 18 U/L (15-37) 09/18/19 05:50 ALT 10 U/L (13-61) L 09/18/19 05:50 Alkaline Phosphatase 74 U/L (45-117) 09/18/19 05:50 Creatine Kinase 119 U/L (26-308) 09/17/19 13:00 Troponin I 0.02 ng/ml (0.00-0.05) 09/17/19 13:00 Total Protein 6.6 g/dl (6.4-8.2) 09/18/19 05:50 Albumin 3.2 g/dl (3.4-5.0) L 09/18/19 05:50 TSH 2.36 uIU/ml (0.358-3.74) D 09/17/19 13:00 Urine Color Yellow 09/17/19 13:00 Urine Appearance Clear 09/17/19 13:00 Urine pH 7.5 (5.0-8.0) D 09/17/19 13:00 Ur Specific [place] 1.012 (1.010-1.035) 09/17/19 13:00 Urine Protein Negative (NEGATIVE) 09/17/19 13:00 Urine Glucose (UA) Negative (NEGATIVE) 09/17/19 13:00 Urine Ketones Negative (NEGATIVE) 09/17/19 13:00 Urine Blood Negative (NEGATIVE) 09/17/19 13:00 Urine Nitrite Negative (NEGATIVE) 09/17/19 13:00 Urine Bilirubin Negative (NEGATIVE) 09/17/19 13:00 Urine Urobilinogen 0.2 mg/dL (0.2-1.0) 09/17/19 13:00 Ur Leukocyte Esterase Negative (NEGATIVE) 09/17/19 13:00 ECG: apaced, no st changes, lat twis CXR: clear lungs tele: sr, occ ap/vs Echo 09/2017 EF 15-25% (beat to beat variability), tds for rwma but global HK with additional AKof basal-distal inf and inflat restrepo. ppm septal motion, nl rv , 1+monique, mild to mod ecc AR, 1+ MR, mod TR with at least mod phtn. suboptimal ivc views, but appears small trivial pericardial effusion Assessment/Plan pafib - initially with rvr here, now hr improved (in sr now) and pt feeling better. Agree with increased dose of toprol from 25 qd to 50 qd. - on coumadin for stroke prophylaxis, cont same, inr therapeutic today. systolic heart failure/ICD (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
[2019-09-18] MEDS ORDERED: LOSARTAN POTASSIUM 25 MG TABLET PO SCH ×2 (10:00)
[2019-09-18] MEDS ORDERED: WARFARIN NA 2 MG TABLET (UD) PO SCH (10:00)
[2019-09-18] MEDS ORDERED: PATIENT'S OWN MEDICATION (NON-FORMULARY) (Mv-Mn/Iron/Folic Acid/Herb 190 [Vitamin D3 Compl PO SCH (10:00)
[2019-09-18] MEDS ORDERED: PATIENT'S OWN MEDICATION (NON-FORMULARY) (Ascorbate Calcium [Vitamin C] 500 MG) PO SCH (10:00)
[2019-09-18] MEDS ORDERED: MULTIVITAMINS (DAILY MVI) TABLET (FP) PO SCH (10:00)
[2019-09-18] MEDS: ASCORBIC ACID 500 MG TABLET (FP) PO SCH (11:19)
[2019-09-18] MEDS: ARTIFICIAL TEARS (POLYVINYL ALCOHOL) OPTH DROPS OU SCH ×2 (11:20→22:45)
[2019-09-18] MEDS: MULTIVITAMINS (DAILY MVI) TABLET (FP) PO SCH (11:20)
[2019-09-18] MEDS ORDERED: PT OWN MED DRAWER 7, Y5N ONE ×2 (13:05→22:36)
--- NOTE | 2019-09-18 15:30 | PN ---
Progress Note (short form) - Note Progress Note: Subjective: no fever or chills . no pain , no palpitations . 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 ( Meri [id number]) Objective: Vital Signs: Last Vital Signs Temp Pulse Resp BP Pulse Ox 97.5 F L 61 20 180/81 H 99 09/18/19 08:42 09/18/19 08:42 09/18/19 12:00 09/18/19 08:42 09/17/19 16:12 Laboratory Results - last 24 hr 09/17/19 09/18/19 09/18/19 19:40 05:50 05:50 WBC 6.3 RBC 4.13 Hgb 13.3 Hct 39.7 D MCV 96.3 H MCH 32.3 MCHC 33.6 RDW 13.8 Plt Count 154 D MPV 8.8 Absolute Neuts (auto) 4.5 Neutrophils % 72.0 Lymphocytes % 15.8 Monocytes % 10.4 H Eosinophils % 1.2 Basophils % 0.6 Nucleated RBC % 0 PT with INR 25.10 H INR 2.11 H Sodium Potassium Chloride Carbon Dioxide Anion Gap BUN Creatinine Est GFR (CKD-EPI)AfAm Est GFR (CKD-EPI)NonAf Random Glucose Lactic Acid 1.4 Calcium Phosphorus Magnesium Total Bilirubin AST ALT Alkaline Phosphatase Total Protein Albumin 09/18/19 05:50 WBC RBC Hgb Hct MCV MCH MCHC RDW Plt Count MPV Absolute Neuts (auto) Neutrophils % Lymphocytes % Monocytes % Eosinophils % Basophils % Nucleated RBC % PT with INR INR Sodium 138 Potassium 4.0 Chloride 106 Carbon Dioxide 26 Anion Gap 6 L BUN 16.8 Creatinine 0.9 Est GFR (CKD-EPI)AfAm 93.16 Est GFR (CKD-EPI)NonAf 80.38 Random Glucose 91 Lactic Acid Calcium 9.0 Phosphorus 3.0 Magnesium 2.0 Total Bilirubin 0.7 AST 18 ALT 10 L Alkaline Phosphatase 74 Total Protein 6.6 Albumin 3.2 L Physical Exam: NAd , awake , alert, cooperative . CV: RRR, possible 2/6 SM at LLSB. Lungs: CTAB Abd: soft, NT, Nd , NL BS Ext: No edema or erythema . A/P 79 y/o man with h/o HTN, A fib on coumadin , systolic CHF , vertigo, ICD placement , PArkinson's , PVD with angioplasty 2015, who presented frm home due to not feeling well.he was found to be in A fib with RVR 1- A fib with RVR: improved. - paced rhythm now. - cont toprol 5 mg daily - cont coumadin at 3 mg . INR noted 2- H/o Systolic heart failure : EF in 2018 was 15-25%. with global hypokinesia . - cont ARB ( increase dose ) , cont toprol. 3- HTN : uncontrolled. gave an extra dose of 25 mg of losartan, then increase to 50 daily - cont toprol . 4- h/o Parkinson's: cont sinemet 5- DVT PX: on coumadin. Use SCDs Visit type - Emergency Visit Emergency Visit: Yes ED Registration Date: 09/17/19 Care time: The patient presented to the Emergency Department on the above date and was hospitalized for further evaluation of their emergent condition. - New Patient This patient is new to me today: No - Critical Care Critical Care patient: No
[2019-09-18 17:09] LABS: INR 2.21 (0.83-1.09); PROTHROMBIN TIME (PATIENT) 26.3 SEC (9.7-13.0)
[2019-09-18] MEDS: WARFARIN NA 3 MG TABLET PO SCH (22:44)
[2019-09-18] MEDS: SENNOSIDES 8.6MG TABLET (FP) PO SCH (22:44)
[2019-09-18] MEDS: QUEtiapine FUMARATE 25 MG TABLET PO SCH (22:45)
[2019-09-19] MEDS: DOCUSATE SODIUM 100 MG CAPSULE (FP) PO SCH ×3 (05:38→22:45)
[2019-09-19] MEDS ORDERED: PT OWN MED DRAWER 7, Y5N ONE ×2 (09:15→22:24)
--- NOTE | 2019-09-19 09:59 | EKG ---
Test Reason : Blood Pressure : / mmHG Vent. Rate : 060 BPM Atrial Rate : 060 BPM P-R Int : 238 ms QRS Dur : 098 ms QT Int : 400 ms P-R-T Axes : 021 004 215 degrees QTc Int : 400 ms Atrial-paced rhythm with prolonged AV conduction Left ventricular hypertrophy with repolarization changes T WAVE ABNORMALITY, CONSIDER INFEROLATERAL ISCHEMIA ABNORMAL ECG WHEN COMPARED WITH ECG OF 17-SEP-2019 12:52, ELECTRONIC ATRIAL PACEMAKER present VENT. RATE HAS DECREASED BY 75 BPM Confirmed by Naseem Schaefer ([id number]) on 09/19/2019 9:58:47 AM Referred By: Confirmed By:Naseem Schaefer
--- NOTE | 2019-09-19 10:04 | EKG ---
Test Reason : Blood Pressure : / mmHG Vent. Rate : 135 BPM Atrial Rate : 098 BPM P-R Int : 000 ms QRS Dur : 078 ms QT Int : 320 ms P-R-T Axes : 000 037 239 degrees QTc Int : 480 ms SUPRAVENTRICULAR TACHYCARDIA LEFT VENTRICULAR HYPERTROPHY WITH REPOLARIZATION ABNORMALITY ABNORMAL ECG WHEN COMPARED WITH ECG OF 08-AUG-2018 15:26, Tachycardia replaced pacemaker VENT. RATE HAS INCREASED BY [address] NOW DEPRESSED IN INFERIOR LEADS T WAVE INVERSION NOW EVIDENT IN LATERAL LEADS Confirmed by Naseem Schaefer ([id number]) on 09/19/2019 10:04:01 AM Referred By: Confirmed By:Naseem Schaefer
[2019-09-19] MEDS: MULTIVITAMINS (DAILY MVI) TABLET (FP) PO SCH (10:15)
[2019-09-19] MEDS: CARBIDOPA/LEVODOPA 25/250 TABLET (FP) PO SCH ×2 (10:15→22:44)
[2019-09-19] MEDS: ASCORBIC ACID 500 MG TABLET (FP) PO SCH (10:15)
[2019-09-19] MEDS: ARTIFICIAL TEARS (POLYVINYL ALCOHOL) OPTH DROPS OU SCH ×2 (10:16→22:45)
[2019-09-19] MEDS: LOSARTAN POTASSIUM 50 MG TABLET (FP) PO SCH (10:16)
--- NOTE | 2019-09-19 10:23 | PN ---
Progress Note, Physician History of Present Illness: denies cp, sob, palp, syncope - Current Medication List Current Medications: Active Medications Acetaminophen (Tylenol -) 650 mg PO Q6H PRN PRN Reason: PAIN OR FEVER Artificial Tears (Artificial Tears) 1 drop OU BID [facility] Last Admin: 09/19/19 10:16 Dose: 1 drop Ascorbic Acid (Vitamin C -) 500 mg PO DAILY [facility] Last Admin: 09/19/19 10:15 Dose: 500 mg Carbidopa/Levodopa (Sinemet 25/250 -) 1 each PO BID [facility] Last Admin: 09/19/19 10:15 Dose: 1 each Docusate Sodium (Colace -) 100 mg PO TID [facility] Last Admin: 09/19/19 05:38 Dose: 100 mg Losartan Potassium (Cozaar -) 50 mg PO DAILY [facility] Last Admin: 09/19/19 10:16 Dose: 50 mg Metoprolol Succinate (Toprol Xl -) 50 mg PO DAILY [facility] Last Admin: 09/19/19 10:15 Dose: 50 mg Multivitamins/Minerals/Vitamin C (Tab-A-Vit -) 1 tab PO DAILY [facility] Last Admin: 09/19/19 10:15 Dose: 1 tab Quetiapine Fumarate (Seroquel -) 25 mg PO [facility] Last Admin: 09/18/19 22:45 Dose: 25 mg Senna (Senna -) 2 tab PO [facility] Last Admin: 09/18/19 22:44 Dose: 2 tab Warfarin Sodium (Coumadin -) 3 mg PO DAILY@1800 [facility] Last Admin: 09/18/19 22:44 Dose: 3 mg - Objective Vital Signs: Vital Signs Temperature 97.5 F L 09/19/19 07:54 Pulse Rate 61 09/19/19 07:54 Respiratory Rate 20 09/19/19 07:54 Blood Pressure 140/77 09/19/19 07:54 O2 Sat by Pulse Oximetry (%) 98 09/19/19 07:54 Constitutional: Yes: Well Nourished, No Distress, Calm Cardiovascular: Yes: Regular Rate and Rhythm. No: JVD, Gallop, Murmur Respiratory: Yes: Regular, CTA Bilaterally. No: Accessory Muscle Use, Rales, Wheezes Extremities: No: Cold Edema: No Neurological: Yes: Alert. No: Seizure Psychiatric: No: Agitated Labs: CBC, BMP 09/18/19 05:50 09/18/19 05:50 INR, PTT INR 2.21 (0.83-1.09) H 09/18/19 16:20 Assessment/Plan ECG: apaced, no st changes, lat twis CXR: clear lungs tele: sr, occ ap/vs, accelerated junctional rhythm Echo 2018 EF 15-25% (beat to beat variability), tds for rwma but global HK with additional AK of basal-distal inf and inflat restrepo. ppm septal motion, nl rv, 1+ monique, mild to mod ecc AR, 1+ MR, mod TR with at least mod phtn. suboptimal ivc views, but appears small trivial pericardial effusion Assessment/Plan pafib, accelerated junctional rhythm: - initially with rvr here, now hr improved (in sr now) and pt feeling better. Agree with increased dose of toprol from 25 qd to 50 qd. - on coumadin for stroke prophylaxis, cont same, inr therapeutic today. - accelerated junctional rhythm stable rhythm requires no intervention, not contraindication for BB--cont tele systolic heart failure/ICD ([facility]) - EF 15-25% 10/11 echo - vol stable here, euvolemic--no lasix - continue losartan, metoprolol - repeat echo--rec outpt cardio f/u re: discussion of ICD (it not previously disc'd) - K/Mag optimized--aggressive repletion targets per usual history of PAD - s/p angioplasty 03/2016 - denies claudication, continue statin, warfarin parkinson's disease - on home meds
[2019-09-19 12:07] LABS: INR 2.28 (0.83-1.09); PROTHROMBIN TIME (PATIENT) 27.1 SEC (9.7-13.0)
--- NOTE | 2019-09-19 14:16 | PN ---
Teaching Attending Note Name of Resident: Mitchell Larson ATTENDING PHYSICIAN STATEMENT I saw and evaluated the patient. I reviewed the resident's note and discussed the case with the resident. I agree with the resident's findings and plan as documented. SUBJECTIVE: [place] dinkey operator, [id number] used but patient was not able to cooperate with phone . OBJECTIVE: NAd , awake , alert, cooperative . CV: RRR, possible 2/6 SM at LLSB. Lungs: CTAB Abd: soft, NT, Nd , NL BS Ext: No edema or erythema . A/P 79 y/o man with h/o HTN, A fib on coumadin , systolic CHF , vertigo, ICD placement , PArkinson's , PVD with angioplasty 2015, who presented frm home due to not feeling well.he was found to be in A fib with RVR 1- A fib with RVR: improved. - paced rhythm now. - cont toprol 5 mg daily. - cont coumadin at 3 mg. INR 2.2 2- H/o Systolic heart failure: EF in 2018 was 15-25%. with global hypokinesia . - follow echo - cont increased dose of ARB - cont toprol 3- HTN : - cont toprol and losartan . 4- h/o Parkinson's: cont sinemet 5- DVT PX: on coumadin. Use SCDs.
--- NOTE | 2019-09-19 14:29 | PN ---
Physical Exam: SUBJECTIVE: Patient seen and examined at the bedside. Stated he is doing well and denies palpitations when he is at rest. If he sits up and moves around in the bed he states that occasionally he will feel palpitations. Denies cp, sob, abd pain, n/v/c/d, fever, chills, dizziness, lightheadedness, focal weakness, numbness, tingling. OBJECTIVE: Vital Signs Period Temp Pulse Resp BP Sys/Lauren Pulse Ox Last 24 Hr 97.1 F-98.6 F 60-63 20-20 133-168/58-80 98-98 GENERAL: The patient is awake, alert, and oriented to self and location. No acute distress. HEAD: Normal with no signs of trauma. EYES: PERRL, extraocular movements intact, conjunctiva clear. ENT: Oropharynx clear without exudates, moist mucous membranes. LUNGS: Breath sounds equal, mild bibasilar crackles heard. HEART: Normal rate and irregular rhythm, S1, S2 with systolic ejection murmur heard. ABDOMEN: Soft, nontender, nondistended, normoactive bowel sounds, no guarding, no rebound, no masses. EXTREMITIES: 1+ pulses, warm, well-perfused, trace edema. NEUROLOGICAL: Cranial nerves II through XII grossly intact. 5/5 muscle strength bilaterally upper and lower extremities. PSYCH: Normal mood, normal affect. Laboratory Results - last 24 hr 09/18/19 09/19/19 16:20 11:43 PT with INR 26.30 H 27.10 H INR 2.21 H 2.28 H Active Medications Generic Name Dose Route Start Last Admin Trade Name Blaneq PRN Reason Stop Dose Admin Acetaminophen 650 mg 09/17/19 16:54 Tylenol - PO Q6H PRN PAIN OR FEVER Artificial Tears 1 drop 09/17/19 22:00 09/19/19 10:16 Artificial Tears OU 1 drop BID [facility]JA Administration Ascorbic Acid 500 mg 09/18/19 10:00 09/19/19 10:15 Vitamin C - PO 500 mg DAILY DAJA Administration Carbidopa/Levodopa 1 each 09/18/19 22:00 09/19/19 10:15 Sinemet 25/250 - PO 1 each BID DAJA Administration Docusate Sodium 100 mg 09/17/19 22:00 09/19/19 13:33 Colace - PO 100 mg TID DAJA Administration Losartan Potassium 50 mg 09/19/19 10:00 09/19/19 10:16 Cozaar - PO 50 mg DAILY [facility]JA Administration Metoprolol Succinate 50 mg 09/18/19 05:15 09/19/19 10:15 Toprol Xl - PO 50 mg DAILY [facility]JA Administration Multivitamins/Minerals/Vitamin C 1 tab 09/18/19 10:00 09/19/19 10:15 Tab-A-Vit - PO 1 tab DAILY [facility] Administration Quetiapine Fumarate 25 mg 09/18/19 22:00 09/18/19 22:45 Seroquel - PO 25 mg HS DAJA Administration Senna 2 tab 09/17/19 22:00 09/18/19 22:44 Senna - PO 2 tab HS DAJA Administration Warfarin Sodium 3 mg 09/18/19 18:00 09/18/19 22:44 Coumadin - PO 3 mg DAILY@1800 DAJA Administration ASSESSMENT/PLAN: Akshat Jorgensen is an 79 year old male with a past medical history of Parkinson's disease, afib on coumadin (prior episodes of RVR), ?CHF, and vertigo admitted for AF with RVR. AF with RVR - improved - Was given 1 dose Dig to good effect in ED - cardiology consulted, recs appreciated - LA with mild elevation is likely due to AF w/ RVR - metoprolol 50mg daily - tele monitoring - paced rhythm - continue home coumadin 3mg Parkinson's Disease - continue home Sinemet CHF - ICD in place - increase losartan to 50mg - toprol 50mg daily - echo noting EF 40-45%, impaired relaxation, mild LVH, mildly decreased systolic function, mildly dilated LA, sclerotic aortic valve, mild TR, trace pericardial effusion HTN - continue losartan and toprol Weakness - unable to walk with PT - will require SNF, pending auth DVT PPx - home coumadin FEN - no standing fluids - continue to monitor electrolytes and replete as necessary - sodium controlled diet Dispo - continue to monitor on telemetry Visit type - Emergency Visit Emergency Visit: Yes ED Registration Date: 09/17/19 Care time: The patient presented to the Emergency Department on the above date and was hospitalized for further evaluation of their emergent condition. - New Patient This patient is new to me today: Yes Date on this admission: 09/19/19 - Critical Care Critical Care patient: No
--- NOTE | 2019-09-19 16:40 | ECHO ---
Name: NASIR KOCH Exam:Adult Echocardiogram Study Date: 09/19/2019 03:56 PM Age: 79 yrs Reason For Study: SYST CHF Height: 70 in Weight: 135 lb BSA: 1.8 m2 MMode/2D Measurements & Calculations IVSd: 1.1 cm Ao root diam: 3.0 cm LVIDd: 5.2 cm LA dimension: 3.6 cm LVIDs: 3.9 cm ACS: 1.7 cm LVPWd: 1.2 cm EDV(Teich): 127.3 ml EPSS: 1.7 cm ESV(Teich): 67.1 ml LVOT diam: 2.0 cm LVLd ap4: 10.5 cm EDV(MOD-sp4): 181.0 ml LVLs ap4: 8.4 cm ESV(MOD-sp4): 85.0 ml SV(MOD-sp4): 96.0 ml LAV (MOD-bp): 70.9 ml TAPSE: 1.8 cm RV S Marvin: 8.8 cm/sec Doppler Measurements & Calculations MV E max marvin: 66.9 cm/sec MV dec slope: 256.6 cm/sec2 MV A max marvin: 96.0 cm/sec MV E/A: 0.70 MV dec time: 0.26 sec Ao V2 max: 149.3 cm/sec LV V1 max P.5 mmHg Ao max P.9 mmHg LV V1 mean P.7 mmHg Ao V2 mean: 102.9 cm/sec LV V1 max: 94.1 cm/sec Ao mean P.8 mmHg LV V1 mean: 60.4 cm/sec Ao V2 VTI: 31.9 cm LV V1 VTI: 17.6 cm GEOFF(I,D): 1.7 cm2 GEOFF(V,D): 1.9 cm2 SV(LVOT): 52.8 ml TR max marvin: 242.5 cm/sec TR max P.8 mmHg PA V2 max: 89.6 cm/sec Med Peak E' Marvin: 5.8 cm/sec PA max P.2 mmHg Med E/e': 11.6 Lat Peak E' Marvin: 8.3 cm/sec Lat E/e': 8.1 Pulm Sys Marvin: 59.8 cm/sec Pulm Lauren Marvin: 31.9 cm/sec Pulm S/D: 1.9 Left Ventricle The left ventricle is normal in size. There is mild concentric left ventricular hypertrophy. Ejection Fraction = 40-45%. The transmitral spectral Doppler flow pattern is suggestive of impaired LV relaxation. Ther e is mild global hypokinesis of the left ventricle. Apical wall motion abnormality may reflect pacemaker activa tion. Right Ventricle The right ventricle is normal size. The right ventricular systolic function is normal. Atria The left atrium is mildly dilated. Right atrial size is normal. Mitral Valve The mitral valve is grossly normal. Tricuspid Valve The tricuspid valve is not well visualized. There is mild tricuspid regurgitation. Right ventricular systolic pressure is elevated at 30-40mmHg. Aortic Valve There is mild to moderate aortic sclerosis.;. Trace aortic regurgitation. Pulmonic Valve The pulmonic valve is not well visualized. Great Vessels The aortic root is not well visualized. Pericardium/Pleura Trivial pericardial effusion not hemodynamically significant. Interpretation Summary LV: Normal size,mild LVH,mildly decreased systolic function, EF 40-45%,impaired relaxation RV: Normal Lead in right heart (PM/ICD) LA: Mildly dilated Sclerotic aortic valve Mild TR with normal pulmonary pressure Trace pericardial effusion. Naseem Schaefer 09/19/2019 04:39 PM
[2019-09-19] MEDS: WARFARIN NA 3 MG TABLET PO SCH (19:39)
[2019-09-19] MEDS: QUEtiapine FUMARATE 25 MG TABLET PO SCH (22:44)
[2019-09-19] MEDS: SENNOSIDES 8.6MG TABLET (FP) PO SCH (22:45)
[2019-09-20] MEDS: DOCUSATE SODIUM 100 MG CAPSULE (FP) PO SCH ×3 (06:42→22:47)
[2019-09-20 07:26] LABS: INR 2.29 (0.83-1.09); PROTHROMBIN TIME (PATIENT) 27.3 SEC (9.7-13.0)
[2019-09-20 07:29] LABS: ACTIVATED PTT 43.5 SECONDS (25.2-36.5)
[2019-09-20] MEDS: MULTIVITAMINS (DAILY MVI) TABLET (FP) PO SCH (10:22)
[2019-09-20] MEDS: ASCORBIC ACID 500 MG TABLET (FP) PO SCH (10:22)
[2019-09-20] MEDS: ARTIFICIAL TEARS (POLYVINYL ALCOHOL) OPTH DROPS OU SCH ×2 (10:22→22:47)
[2019-09-20] MEDS: LOSARTAN POTASSIUM 50 MG TABLET (FP) PO SCH (10:23)
[2019-09-20] MEDS: CARBIDOPA/LEVODOPA 25/250 TABLET (FP) PO SCH ×2 (10:23→22:47)
--- NOTE | 2019-09-20 12:02 | PN ---
Progress Note (short form) - Note Progress Note: s: Acetaminophen (Tylenol -) 650 mg PO Q6H PRN PRN Reason: PAIN OR FEVER Artificial Tears (Artificial Tears) 1 drop OU BID [facility] Last Admin: 09/19/19 10:16 Dose: 1 drop Ascorbic Acid (Vitamin C -) 500 mg PO DAILY [facility] Last Admin: 09/19/19 10:15 Dose: 500 mg Carbidopa/Levodopa (Sinemet 25/250 -) 1 each PO BID [facility] Last Admin: 09/19/19 10:15 Dose: 1 each Docusate Sodium (Colace -) 100 mg PO TID [facility] Last Admin: 09/19/19 05:38 Dose: 100 mg Losartan Potassium (Cozaar -) 50 mg PO DAILY [facility] Last Admin: 09/19/19 10:16 Dose: 50 mg Metoprolol Succinate (Toprol Xl -) 50 mg PO DAILY [facility] Last Admin: 09/19/19 10:15 Dose: 50 mg Multivitamins/Minerals/Vitamin C (Tab-A-Vit -) 1 tab PO DAILY [facility] Last Admin: 09/19/19 10:15 Dose: 1 tab Quetiapine Fumarate (Seroquel -) 25 mg PO [facility] Last Admin: 09/18/19 22:45 Dose: 25 mg Senna (Senna -) 2 tab PO [facility] Last Admin: 09/18/19 22:44 Dose: 2 tab Warfarin Sodium (Coumadin -) 3 mg PO DAILY@1800 [facility] Last Admin: 09/18/19 22:44 Dose: 3 mg - Objective Vital Signs: Vital Signs Temperature 97.5 F L 09/19/19 07:54 Pulse Rate 61 09/19/19 07:54 Respiratory Rate 20 09/19/19 07:54 Blood Pressure 140/77 09/19/19 07:54 O2 Sat by Pulse Oximetry (%) 98 09/19/19 07:54 Constitutional: Yes: Well Nourished, No Distress, Calm Cardiovascular: Yes: Regular Rate and Rhythm. No: JVD, Gallop, Murmur Respiratory: Yes: Regular, CTA Bilaterally. No: Accessory Muscle Use, Rales, Wheezes Extremities: No: Cold Edema: No Neurological: Yes: Alert. No: Seizure Psychiatric: No: Agitated Labs: CBC, BMP 09/18/19 05:50 02/23/20 05:50 INR, PTT INR 2.21 (0.83-1.09) H 09/18/19 16:20 Assessment/Plan ECG: apaced, no st changes, lat twis CXR: clear lungs tele: sr, occ ap/vs, accelerated junctional rhythm Echo 2017 EF 15-25% (beat to beat variability), tds for rwma but global HK with additional AK of basal-distal inf and inflat restrepo. ppm septal motion, nl rv, 1+ monique, mild to mod ecc AR, 1+ MR, mod TR with at least mod phtn. suboptimal ivc views, but appears small trivial pericardial effusion echo 08/2019 nl size, mild LVH, mildly reduced LV function EF 40-45%, impaired relaxation, PPM lead R heart, LA mildly dilated, tr TR, trivial pericardial effusion Assessment/Plan pafib, accelerated junctional rhythm: - initially with rvr here, now hr improved (in sr now) and pt feeling better. increased dose of toprol from 25 qd to 50 qd. - pt sees me for cardio - has been limited in dose increases of metoprolol due to hypotension and fatigue. continue metoprolol 50 mg daily for now - on coumadin for stroke prophylaxis, cont same, inr therapeutic today. - accelerated junctional rhythm stable rhythm requires no intervention, not contraindication for BB--cont tele systolic heart failure/ICD ([facility]) - EF 15-25% 10/11 echo, now 40-45% during this admission - vol stable here, euvolemic--no lasix - continue losartan, metoprolol - K/Mag optimized--aggressive repletion targets per usual - outpatient follow up of ICD history of PAD - s/p angioplasty 03/2016 - denies claudication, continue statin, warfarin parkinson's disease - on home meds
[2019-09-20] MEDS: WARFARIN NA 3 MG TABLET PO SCH (17:17)
--- NOTE | 2019-09-20 18:17 | PN ---
Physical Exam: SUBJECTIVE: Patient seen and examined at the bedside. Stated that he felt better and did not have any acute complaints of cp, sob, abd pain, n/v/c/d, headaches, dizziness, lightheadedness. OBJECTIVE: Vital Signs Period Temp Pulse Resp BP Sys/Lauren Pulse Ox Last 24 Hr 97.2 F-98.2 F 60-66 18-18 119-157/57-77 96-98 GENERAL: The patient is awake, alert, and oriented to self and location. No acute distress. HEAD: Normal with no signs of trauma. EYES: PERRL, extraocular movements intact, conjunctiva clear. ENT: Oropharynx clear without exudates, moist mucous membranes. LUNGS: Breath sounds equal, mild bibasilar crackles heard. HEART: Normal rate and irregular rhythm, S1, S2 with systolic ejection murmur heard. ABDOMEN: Soft, nontender, nondistended, normoactive bowel sounds, no guarding, no rebound, no masses. EXTREMITIES: 1+ pulses, warm, well-perfused, trace edema. NEUROLOGICAL: Cranial nerves II through XII grossly intact. 5/5 muscle strength bilaterally upper and lower extremities. PSYCH: Normal mood, normal affect. Laboratory Results - last 24 hr 09/20/19 06:46 PT with INR 27.30 H INR 2.29 H PTT ([facility]) 43.5 H Active Medications Generic Name Dose Route Start Last Admin Trade Name Freq PRN Reason Stop Dose Admin Acetaminophen 650 mg 09/17/19 16:54 Tylenol - PO Q6H PRN PAIN OR FEVER Artificial Tears 1 drop 09/17/19 22:00 09/20/19 10:22 Artificial Tears OU 1 drop BID DAJA Administration Ascorbic Acid 500 mg 09/18/19 10:00 09/20/19 10:22 Vitamin C - PO 500 mg DAILY DAJA Administration Carbidopa/Levodopa 1 each 09/18/19 22:00 09/20/19 10:23 Sinemet 25/250 - PO 1 each BID DAJA Administration Docusate Sodium 100 mg 09/17/19 22:00 09/20/19 13:36 Colace - PO 100 mg TID DAJA Administration Losartan Potassium 50 mg 09/19/19 10:00 09/20/19 10:23 Cozaar - PO 50 mg DAILY DAAJ Administration Metoprolol Succinate 50 mg 09/18/19 05:15 09/20/19 10:22 Toprol Xl - PO 50 mg DAILY DAJA Administration Multivitamins/Minerals/Vitamin C 1 tab 09/18/19 10:00 09/20/19 10:22 Tab-A-Vit - PO 1 tab DAILY [facility]JA Administration Quetiapine Fumarate 25 mg 09/18/19 22:00 09/19/19 22:44 Seroquel - PO 25 mg HS DAJA Administration Senna 2 tab 09/17/19 22:00 09/19/19 22:45 Senna - PO 2 tab HS DAJA Administration Warfarin Sodium 3 mg 09/18/19 18:00 09/20/19 17:17 Coumadin - PO 3 mg DAILY@1800 DAAJ Administration ASSESSMENT/PLAN: Akshat Jorgensen is an 79 year old male with a past medical history of Parkinson's disease, afib on coumadin (prior episodes of RVR), ?CHF, and vertigo admitted for AF with RVR. AF with RVR - improved - Was given 1 dose Dig to good effect in ED - cardiology consulted, recs appreciated - LA with mild elevation is likely due to AF w/ RVR - metoprolol 50mg daily - tele monitoring - paced rhythm - continue home coumadin 3mg Parkinson's Disease - continue home Sinemet CHF - ICD in place - increase losartan to 50mg - toprol 50mg daily - echo noting EF 40-45%, impaired relaxation, mild LVH, mildly decreased systolic function, mildly dilated LA, sclerotic aortic valve, mild TR, trace pericardial effusion HTN - continue losartan and toprol Weakness - unable to walk with PT - denied by SNF, will go home with VNS DVT PPx - home coumadin FEN - no standing fluids - continue to monitor electrolytes and replete as necessary - sodium controlled diet Dispo - continue to monitor on telemetry Visit type - Emergency Visit Emergency Visit: Yes ED Registration Date: 09/17/19 Care time: The patient presented to the Emergency Department on the above date and was hospitalized for further evaluation of their emergent condition. - New Patient This patient is new to me today: No - Critical Care Critical Care patient: No
--- NOTE | 2019-09-20 18:46 | PN ---
Teaching Attending Note Name of Resident: Baldomero Long ATTENDING PHYSICIAN STATEMENT I saw and evaluated the patient. I reviewed the resident's note and discussed the case with the resident. I agree with the resident's findings and plan as documented. SUBJECTIVE: no complaints , no events over night OBJECTIVE: NAD, awake , alert, cooperative . CV: RRR, possible 2/6 SM at LLSB. Lungs: CTAB Abd: soft, NT, ND NL BS Ext: No edema or erythema . A/P 79 y/o man with h/o HTN, A fib on coumadin , systolic CHF , vertigo, ICD placement , PArkinson's , PVD with angioplasty 2015, who presented frm home due to not feeling well.he was found to be in A fib with RVR 1- A fib with RVR: improved. - cont toprol 5 mg daily. - cont coumadin at 3 mg. INR 2.2 2- H/o Systolic heart failure: EF 40-45% on echo this admission . - cont increased dose of ARB - cont toprol - f/u small pericardial effusion as out pt 3- HTN : - cont toprol and losartan . 4- h/o Parkinson's: cont sinemet dc home with VNS
[2019-09-20] MEDS ORDERED: PT OWN MED DRAWER 7, Y5N ONE (22:07)
[2019-09-20] MEDS: SENNOSIDES 8.6MG TABLET (FP) PO SCH (22:47)
[2019-09-20] MEDS: QUEtiapine FUMARATE 25 MG TABLET PO SCH (22:47)
[2019-09-21] MEDS: DOCUSATE SODIUM 100 MG CAPSULE (FP) PO SCH ×3 (05:25→22:53)
--- NOTE | 2019-09-21 08:59 | PN ---
Teaching Attending Note Name of Resident: Baldomero Long ATTENDING PHYSICIAN STATEMENT I saw and evaluated the patient. I reviewed the resident's note and discussed the case with the resident. I agree with the resident's findings and plan as documented. SUBJECTIVE: Patient is comfortable with no acute distress. Feels better. Vital Signs Temperature 97.8 F 09/21/19 05:27 Pulse Rate 60 09/21/19 05:27 Respiratory Rate 20 09/21/19 05:27 Blood Pressure 160/82 09/21/19 05:27 O2 Sat by Pulse Oximetry (%) 97 09/20/19 22:00 GENERAL: The patient is awake, alert, and fully oriented, in no acute distress. HEAD: Normal with no signs of trauma. EYES: PERRL, extraocular movements intact, sclera anicteric, conjunctiva clear. ENT: Ears normal, oropharynx clear without exudates, moist mucous membranes. NECK: Trachea midline, full range of motion, supple. LUNGS: Breath sounds equal, clear to auscultation bilaterally, no wheezes, no crackles, no accessory muscle use. HEART: Regular rate and rhythm, S1, S2 +, CARLI 2/6 , no rub or gallop. ABDOMEN: Soft, NT,ND, normoactive bowel sounds, no guarding, no rebound, no hepatosplenomegaly, no masses. EXTREMITIES: 2+ pulses, warm, well-perfused, no edema. NEUROLOGICAL: Cranial nerves II through XII grossly intact. Normal speech, gait not observed. PSYCH: Normal mood, normal affect. SKIN: Warm, dry, normal turgor, no rashes or lesions noted CBCD WBC 6.3 K/mm3 (4.0-10.0) 09/18/19 05:50 RBC 4.13 M/mm3 (4.00-5.60) 09/18/19 05:50 Hgb 13.3 GM/dL (11.7-16.9) 09/18/19 05:50 Hct 39.7 % (35.4-49) D 09/18/19 05:50 MCV 96.3 fl (80-96) H 09/18/19 05:50 MCHC 33.6 g/dl (32.0-35.9) 09/18/19 05:50 RDW 13.8 % (11.9-15.9) 09/18/19 05:50 Plt Count 154 K/MM3 (134-434) D 09/18/19 05:50 MPV 8.8 fl (7.5-11.1) 09/18/19 05:50 CMP Sodium 138 mmol/L (136-145) 09/18/19 05:50 Potassium 4.0 mmol/L (3.5-5.1) 09/18/19 05:50 Chloride 106 mmol/L (98-107) 09/18/19 05:50 Carbon Dioxide 26 mmol/L (21-32) 09/18/19 05:50 Anion Gap 6 MMOL/L (8-16) L 09/18/19 05:50 BUN 16.8 mg/dL (7-18) 09/18/19 05:50 Creatinine 0.9 mg/dL (0.55-1.3) 09/18/19 05:50 Random Glucose 91 mg/dL (74-106) 09/18/19 05:50 Calcium 9.0 mg/dL (8.5-10.1) 09/18/19 05:50 Total Bilirubin 0.7 mg/dL (0.2-1) 09/18/19 05:50 AST 18 U/L (15-37) 09/18/19 05:50 ALT 10 U/L (13-61) L 09/18/19 05:50 Alkaline Phosphatase 74 U/L (45-117) 09/18/19 05:50 Total Protein 6.6 g/dl (6.4-8.2) 09/18/19 05:50 Albumin 3.2 g/dl (3.4-5.0) L 09/18/19 05:50 CARDIAC ENZYMES Creatine Kinase 119 U/L (26-308) 09/17/19 13:00 Troponin I 0.02 ng/ml (0.00-0.05) 09/17/19 13:00 Current Medications Generic Name Dose Route Start Last Admin Trade Name Freq PRN Reason Stop Dose Admin Acetaminophen 650 mg 09/17/19 16:54 Tylenol - PO Q6H PRN PAIN OR FEVER Artificial Tears 1 drop 09/17/19 22:00 09/20/19 22:47 Artificial Tears OU 1 drop BID DAJA Administration Ascorbic Acid 500 mg 09/18/19 10:00 09/20/19 10:22 Vitamin C - PO 500 mg DAILY [facility]JA Administration Carbidopa/Levodopa 1 each 09/18/19 22:00 09/20/19 22:47 Sinemet 25/250 - PO 1 each BID DAJA Administration Docusate Sodium 100 mg 09/17/19 22:00 09/21/19 05:25 Colace - PO 100 mg TID DAJA Administration Losartan Potassium 50 mg 09/19/19 10:00 09/20/19 10:23 Cozaar - PO 50 mg DAILY [facility]JA Administration Metoprolol Succinate 50 mg 09/18/19 05:15 09/20/19 10:22 Toprol Xl - PO 50 mg DAILY [facility]JA Administration Multivitamins/Minerals/Vitamin C 1 tab 09/18/19 10:00 09/20/19 10:22 Tab-A-Vit - PO 1 tab DAILY [facility] Administration Quetiapine Fumarate 25 mg 09/18/19 22:00 09/20/19 22:47 Seroquel - PO 25 mg HS [facility] Administration Rosuvastatin Calcium 5 mg 09/21/19 22:00 Crestor - PO HS [facility] Senna 2 tab 09/17/19 22:00 09/20/19 22:47 Senna - PO 2 tab HS [facility]JA Administration Warfarin Sodium 3 mg 09/18/19 18:00 09/20/19 17:17 Coumadin - PO 3 mg DAILY@1800 [facility] Administration Home Medications Medication Instructions Recorded Ascorbate Calcium [Vitamin C] 500 mg PO DAILY #30 tablet 04/28/17 Multivitamins [Multivit ([facility] 1 tab PO DAILY #30 tab 04/28/17 Formulary)] Polyvinyl Alcohol [Artificial 1 drop OU BID 02/10/18 Tears] Docusate Sodium [Colace -] 100 mg PO TID capsule 02/12/18 Carbidopa/Levodopa 25/250 [Sinemet 1 each PO QID 09/17/19 25/250 -] Quetiapine Fumarate [Seroquel -] 25 mg PO HS 09/18/19 Losartan Potassium [Cozaar -] 50 mg PO DAILY tablet 09/20/19 Metoprolol Succinate [Toprol XL -] 50 mg PO DAILY tab.sr.24h 09/20/19 Warfarin Sodium 3 mg PO DAILY 09/20/19 Rosuvastatin [Crestor -] 5 mg PO DAILY 09/21/19 Microbiology 09/17/19 12:54 Blood - Peripheral Venous Blood Culture - Preliminary NO GROWTH OBTAINED AFTER 72 HOURS, INCUBATION TO CONTINUE FOR 2 DAYS. 09/17/19 12:54 Blood - Peripheral Venous Blood Culture - Preliminary NO GROWTH OBTAINED AFTER 72 HOURS, INCUBATION TO CONTINUE FOR 2 DAYS. 09/17/19 13:00 Urine - Urine Clean Catch Urine Culture - Final NO GROWTH OBTAINED Laboratory Tests 09/17/19 09/18/19 09/18/19 13:00 05:50 16:20 INR 1.60 H 2.11 H 2.21 H 09/19/19 09/20/19 11:43 06:46 INR 2.28 H 2.29 H Assessment and plan: Patient is an 79yom with PMhx with HTN, A fib on coumadin , systolic CHF , Vertigo, ICD placement , Parkinson's , PVD with angioplasty 2015, who presented from home due to not feeling well , was found to be in A fib with RVR #A fib with controlled rate now on AC , therapeutic INR now, continue with coumadin 3mg daily. Continue toprol 5O XL daily. - cont coumadin at 3 mg. INR 2.29 today. PT/INR in am # H/o Systolic heart failure: EF 40-45% on echo this admission . cont increased dose of ARB/toprol # HTN : cont toprol and losartan . # h/o Parkinson's: cont sinemet #Hx of HLD: continue crestor dc home with VNS
--- NOTE | 2019-09-21 11:09 | PN ---
Progress Note (short form) - Note Progress Note: s: no chest pain, palps, dizziness, dyspnea Current Medications Acetaminophen (Tylenol -) 650 mg PO Q6H PRN PRN Reason: PAIN OR FEVER Artificial Tears (Artificial Tears) 1 drop OU BID [facility] Last Admin: 09/20/19 22:47 Dose: 1 drop Ascorbic Acid (Vitamin C -) 500 mg PO DAILY [facility] Last Admin: 09/20/19 10:22 Dose: 500 mg Carbidopa/Levodopa (Sinemet 25/250 -) 1 each PO BID [facility] Last Admin: 09/20/19 22:47 Dose: 1 each Docusate Sodium (Colace -) 100 mg PO TID [facility] Last Admin: 09/21/19 05:25 Dose: 100 mg Losartan Potassium (Cozaar -) 50 mg PO DAILY [facility] Last Admin: 09/20/19 10:23 Dose: 50 mg Metoprolol Succinate (Toprol Xl -) 50 mg PO DAILY [facility] Last Admin: 09/20/19 10:22 Dose: 50 mg Multivitamins/Minerals/Vitamin C (Tab-A-Vit -) 1 tab PO DAILY [facility] Last Admin: 09/20/19 10:22 Dose: 1 tab Quetiapine Fumarate (Seroquel -) 25 mg PO HS [facility] Last Admin: 09/20/19 22:47 Dose: 25 mg Rosuvastatin Calcium (Crestor -) 5 mg PO HS [facility] Senna (Senna -) 2 tab PO HS [facility] Last Admin: 09/20/19 22:47 Dose: 2 tab Warfarin Sodium (Coumadin -) 3 mg PO DAILY@1800 [facility] Last Admin: 09/20/19 17:17 Dose: 3 mg Vital Signs Period Temp Pulse Resp BP Sys/Lauren Pulse Ox Last 24 Hr 97.3 F-98.3 F 60-85 18-20 130-184/53-83 97-97 Constitutional: Yes: Well Nourished, No Distress, Calm Cardiovascular: Yes: Regular Rate and Rhythm. No: JVD, Gallop, Murmur Respiratory: Yes: Regular, CTA Bilaterally. No: Accessory Muscle Use, Rales, Wheezes Extremities: No: Cold Edema: No Neurological: Yes: Alert. No: Seizure Psychiatric: No: Agitated no jaundice, diaphoresis Assessment/Plan ECG: apaced, no st changes, lat twis CXR: clear lungs tele: sr, occ ap/vs, accelerated junctional rhythm Echo 2017 EF 15-25% (beat to beat variability), tds for rwma but global HK with additional AK of basal-distal inf and inflat restrepo. ppm septal motion, nl rv, 1+ monique, mild to mod ecc AR, 1+ MR, mod TR with at least mod phtn. suboptimal ivc views, but appears small trivial pericardial effusion echo 08/2019 nl size, mild LVH, mildly reduced LV function EF 40-45%, impaired relaxation, PPM lead R heart, LA mildly dilated, tr TR, trivial pericardial effusion tele: afib, rate ok, artifact Assessment/Plan pafib, accelerated junctional rhythm: - initially with rvr here, now hr improved (in sr now) and pt feeling better. increased dose of toprol from 25 qd to 50 qd. - pt sees me for cardio - has been limited in dose increases of metoprolol due to hypotension and fatigue. continue metoprolol 50 mg daily for now, BP stable - on coumadin for stroke prophylaxis, cont same, inr therapeutic today. - accelerated junctional rhythm stable rhythm requires no intervention, not contraindication for BB--cont tele systolic heart failure/ICD ([facility]) - EF 15-25% 10/11 echo, now 40-45% during this admission - vol stable here, euvolemic--no lasix - continue losartan, metoprolol - K/Mag optimized--aggressive repletion targets per usual - outpatient follow up of ICD history of PAD - s/p angioplasty 03/2016 - denies claudication, continue statin, warfarin parkinson's disease - on home meds
--- NOTE | 2019-09-21 11:13 | DS ---
Physical Exam: SUBJECTIVE: Patient seen and examined at the bedside. Stated he is feeling well. Denied cp, sob, abd pain, n/v/c/d, fever, chills, dizziness, lightheadedness, headaches. States he does feel weak but he is at his baseline. OBJECTIVE: Vital Signs Period Temp Pulse Resp BP Sys/Lauren Pulse Ox Last 24 Hr 97.3 F-98.3 F 60-85 18-20 130-184/53-83 97-97 PHYSICAL EXAM GENERAL: The patient is awake, alert, and oriented to self and location. No acute distress. Turkmen speaking. HEAD: Normal with no signs of trauma. EYES: PERRL, extraocular movements intact, conjunctiva clear. ENT: Oropharynx clear without exudates, moist mucous membranes. LUNGS: Breath sounds equal, trace bibasilar crackles heard. HEART: Normal rate and irregular rhythm, S1, S2 with systolic ejection murmur heard. ABDOMEN: Soft, nontender, nondistended, normoactive bowel sounds, no guarding, no rebound, no masses. EXTREMITIES: 1+ pulses, warm, well-perfused, trace edema. NEUROLOGICAL: Cranial nerves II through XII grossly intact. 5/5 muscle strength bilaterally upper and lower extremities. PSYCH: Normal mood, normal affect. HOSPITAL COURSE: Akshat Jorgensen is an 79 year old male with a past medical history of Parkinson's disease, afib on coumadin (prior episodes of RVR), ?CHF, and vertigo admitted for AF with RVR. Patient has his home dose of metoprolol increased to 50mg with good effect and no further episodes of afib with RVR. Cardiology saw patient and agreed with the plan to increase metoprolol. Additionally, for better BP control patient's home dose of losartan was increased to 50mg daily. Patient was continued on his coumadin 3mg with therapeutic INR levels. Echocardiogram performed at this facility noting EF 40- 45%, impaired relaxation, mild LVH, mildly decreased systolic function, mildly dilated LA, sclerotic aortic valve, mild TR, trace pericardial effusion. Patient is to follow up with his PCP and informatics coordinator and start taking losartan 50mg and metoprolol 50mg. Patient to be discharged with home services. Patient is discharged in stable medical condition. Date of Admission:09/17/19 Date of Discharge: 02/26/20 Minutes to complete discharge: 35 Discharge Summary Problems reviewed: Yes Reason For Visit: CONGESTIVE HEART FAILURE Current Active Problems Dehydration (Acute) Acute electrocardiogram changes (Chronic) Afib (Chronic) CHF (congestive heart failure) (Chronic) NSTEMI (non-ST elevated myocardial infarction) (Chronic) Pacemaker (Chronic) Parkinson disease (Chronic) Condition: Improved - Instructions Diet, Activity, Other Instructions: You were admitted because you had an elevated heart rate. Your heart rate resolved and you will be continued on an increased dose of your medication to control your heart rate. Your blood pressure medication and medication for your congestive heart failure was increased as well. You had an echocardiogram ( ultrasound of the heart) showed that your have decreased heart function (EF 40- 45%), impaired relaxation of the heart, mild enlargement of the heart, and some valvular dysfunction. You were evaluated by physical therapy and were noted to benefit from rehabilitation. MEDICATIONS CHANGE your dose of metoprolol succinate to 50mg once a day. CHANGE your dose of losartan 50mg once a day. Continue to take all of your other home medication as prescribed. REFERRALS Please follow up with your primary care physician, Dr. Marco Antonio Wu, within 1 week. Please follow up with your informatics coordinator, Dr. Celia Germain, within 1 week. SPECIAL INSTRUCTIONS Please follow up with all of your physicians. Careful when you walk to try not to have any falls as you are on a medication that makes you bleed easier. Please have bloodwork to check your INR levels in 3 days. If you have any symptoms of chest pain, shortness of breath, fevers, headaches, dizziness, falls, or any other general feeling of unwellness, please call 911 or go to your nearest emergency room. You will need a repeat echocardiogram in few weeks due to evaluate the small amount of fluids around your heart Referrals: Marco Antonio Wu MD [Primary Care Provider] - 1 Week Celia Germain MD [Staff Physician] - 1 Week Disposition: VNS/HOME HEALTH CARE - Home Medications Comprehensive Discharge Medication List: Ambulatory Orders Ascorbate Calcium [Vitamin C] 500 mg PO DAILY #30 tablet 04/28/17 Multivitamins [Multivit ([facility] Formulary)] 1 tab PO DAILY #30 tab 04/28/17 Polyvinyl Alcohol [Artificial Tears] 1 drop OU BID 02/10/18 Docusate Sodium [Colace -] 100 mg PO TID capsule 02/12/18 Carbidopa/Levodopa 25/250 [Sinemet 25/250 -] 1 each PO QID 09/17/19 Quetiapine Fumarate [Seroquel -] 25 mg PO HS 09/18/19 Warfarin Sodium 3 mg PO DAILY 09/20/19 Losartan Potassium [Cozaar -] 50 mg PO DAILY #30 tablet 09/21/19 Metoprolol Succinate [Toprol Xl] 50 mg PO DAILY #30 tab.er.24h 09/21/19 Rosuvastatin [Crestor -] 5 mg PO DAILY 09/21/19 Problem List - Problems (1) Afib Code(s): I48.91 - UNSPECIFIED ATRIAL FIBRILLATION Qualifiers: Atrial fibrillation type: chronic (2) CHF (congestive heart failure) Code(s): I50.9 - HEART FAILURE, UNSPECIFIED Qualifiers: Heart failure type: systolic Heart failure chronicity: chronic Qualified Code(s): I50.22 - Chronic systolic (congestive) heart failure (3) Pacemaker Code(s): Z95.0 - PRESENCE OF CARDIAC PACEMAKER (4) Parkinson disease Code(s): G20 - PARKINSON'S DISEASE (5) DARIO (acute kidney injury) Code(s): N17.9 - ACUTE KIDNEY FAILURE, UNSPECIFIED This patient is new to me today: No Emergency Visit: Yes ED Registration Date: 09/17/19 Care time: The patient presented to the Emergency Department on the above date and was hospitalized for further evaluation of their emergent condition. Critical Care patient: No - Discharge Referral Referred to [facility] Med P.C.: No
[2019-09-21] MEDS: LOSARTAN POTASSIUM 50 MG TABLET (FP) PO SCH (11:53)
[2019-09-21] MEDS: MULTIVITAMINS (DAILY MVI) TABLET (FP) PO SCH (11:54)
[2019-09-21] MEDS: ASCORBIC ACID 500 MG TABLET (FP) PO SCH (11:54)
[2019-09-21] MEDS ORDERED: PT OWN MED DRAWER 7, Y5N ONE ×2 (11:55→22:52)
[2019-09-21] MEDS: CARBIDOPA/LEVODOPA 25/250 TABLET (FP) PO SCH ×2 (11:55→22:57)
[2019-09-21] MEDS: ARTIFICIAL TEARS (POLYVINYL ALCOHOL) OPTH DROPS OU SCH ×2 (11:56→22:57)
[2019-09-21] MEDS: WARFARIN NA 3 MG TABLET PO SCH (17:22)
[2019-09-21] MEDS ORDERED: ROSUVASTATIN CA 5 MG TABLET (FP) PO SCH (22:00)
[2019-09-21] MEDS: SENNOSIDES 8.6MG TABLET (FP) PO SCH (22:53)
[2019-09-21] MEDS: QUEtiapine FUMARATE 25 MG TABLET PO SCH (22:57)
[2019-09-22] MEDS: DOCUSATE SODIUM 100 MG CAPSULE (FP) PO SCH (06:04)
--- NOTE | 2019-09-22 10:51 | PN ---
Progress Note (short form) - Note Progress Note: s: no chest pain, palps, dizziness, dyspnea Current Medications Generic Name Dose Route Start Last Admin Trade Name Freq PRN Reason Stop Dose Admin Acetaminophen 650 mg 09/17/19 16:54 Tylenol - PO Q6H PRN PAIN OR FEVER Artificial Tears 1 drop 09/17/19 22:00 09/21/19 22:57 Artificial Tears OU 1 drop BID DAJA Administration Ascorbic Acid 500 mg 09/18/19 10:00 09/21/19 11:54 Vitamin C - PO 500 mg DAILY [facility] Administration Carbidopa/Levodopa 1 each 09/18/19 22:00 09/21/19 22:57 Sinemet 25/250 - PO 1 each BID [facility]JA Administration Docusate Sodium 100 mg 09/17/19 22:00 09/22/19 06:04 Colace - PO Not Given TID DAJA Losartan Potassium 50 mg 09/19/19 10:00 09/21/19 11:53 Cozaar - PO 50 mg DAILY [facility] Administration Metoprolol Succinate 50 mg 09/18/19 05:15 09/21/19 11:54 Toprol Xl - PO 50 mg DAILY [facility] Administration Multivitamins/Minerals/Vitamin C 1 tab 09/18/19 10:00 09/21/19 11:54 Tab-A-Vit - PO 1 tab DAILY [facility] Administration Quetiapine Fumarate 25 mg 09/18/19 22:00 09/21/19 22:57 Seroquel - PO 25 mg HS [facility] Administration Rosuvastatin Calcium 5 mg 09/21/19 22:00 09/21/19 22:57 Crestor - PO 5 mg HS [facility] Administration Senna 2 tab 09/17/19 22:00 09/21/19 22:53 Senna - PO Not Given HS [facility] Warfarin Sodium 3 mg 09/18/19 18:00 09/21/19 17:22 Coumadin - PO 3 mg DAILY@1800 [facility] Administration Vital Signs Period Temp Pulse Resp BP Sys/Lauren Pulse Ox Last 24 Hr 97.4 F-97.8 F 60-87 18-20 140-155/67-78 100 Constitutional: Yes: Well Nourished, No Distress, Calm Cardiovascular: Yes: Regular Rate and Rhythm. No: JVD, Gallop, Murmur Respiratory: Yes: Regular, CTA Bilaterally. No: Accessory Muscle Use, Rales, Wheezes Extremities: No: Cold Edema: No Neurological: Yes: Alert. No: Seizure Psychiatric: No: Agitated no jaundice, diaphoresis CBC, BMP 09/18/19 05:50 09/18/19 05:50 Assessment/Plan ECG: apaced, no st changes, lat twis CXR: clear lungs tele: sr Echo 2017 EF 15-25% (beat to beat variability), tds for rwma but global HK with additional AK of basal-distal inf and inflat restrepo. ppm septal motion, nl rv, 1+ monique, mild to mod ecc AR, 1+ MR, mod TR with at least mod phtn. suboptimal ivc views, but appears small trivial pericardial effusion echo 08/2019 nl size, mild LVH, mildly reduced LV function EF 40-45%, impaired relaxation, PPM lead R heart, LA mildly dilated, tr TR, trivial pericardial effusion Assessment/Plan pafib, accelerated junctional rhythm: - initially with rvr here, now hr improved (in sr now) and pt feeling better. increased dose of toprol from 25 qd to 50 qd. - has been limited in dose increases of metoprolol due to hypotension and fatigue. continue metoprolol 50 mg daily for now, BP stable - on coumadin for stroke prophylaxis, cont same - accelerated junctional rhythm stable rhythm requires no intervention, not a contraindication for BB systolic heart failure/ICD ([facility]) - EF 15-25% 10/11 echo, now 40-45% during this admission - vol stable here, euvolemic--no lasix - continue losartan, metoprolol - K/Mag optimized--aggressive repletion targets per usual - outpatient follow up of ICD history of PAD - s/p angioplasty 03/2016 - denies claudication, continue statin, warfarin parkinson's disease - on home meds cardiac porter stable
[2019-09-22 10:59] VITALS: BP 118/50; PULSE 68; TEMP 98
[2019-09-22] MEDS ORDERED: PT OWN MED DRAWER 7, Y5N ONE (11:24)
[2019-09-22] MEDS: MULTIVITAMINS (DAILY MVI) TABLET (FP) PO SCH (11:25)
[2019-09-22] MEDS: ARTIFICIAL TEARS (POLYVINYL ALCOHOL) OPTH DROPS OU SCH (11:26)
[2019-09-22] MEDS: CARBIDOPA/LEVODOPA 25/250 TABLET (FP) PO SCH (11:26)
[2019-09-22] MEDS: ASCORBIC ACID 500 MG TABLET (FP) PO SCH (11:26)
[2019-09-22] MEDS: LOSARTAN POTASSIUM 50 MG TABLET (FP) PO SCH (11:26)
--- NOTE | 2019-09-22 11:53 | PN ---
Physical Exam: SUBJECTIVE: Patient seen and examined at the bedside. Stated he is doing well and denies any acute complaints of cp, sob, abd pain, n/v/c/d, headaches, dizziness, lightheadedness. Endorses food appetite. OBJECTIVE: Vital Signs Period Temp Pulse Resp BP Sys/Lauren Pulse Ox Last 24 Hr 97.4 F-98 F 60-87 18-20 118-155/50-78 100 GENERAL: The patient is awake, alert, and oriented to self and location. No acute distress. Chilean speaking. HEAD: Normal with no signs of trauma. EYES: PERRL, extraocular movements intact, conjunctiva clear. ENT: Oropharynx clear without exudates, moist mucous membranes. LUNGS: Breath sounds equal, trace bibasilar crackles heard. HEART: Normal rate and irregular rhythm, S1, S2 with systolic ejection murmur heard. ABDOMEN: Soft, nontender, nondistended, normoactive bowel sounds, no guarding, no rebound, no masses. EXTREMITIES: 1+ pulses, warm, well-perfused, trace edema. NEUROLOGICAL: Cranial nerves II through XII grossly intact. 5/5 muscle strength bilaterally upper and lower extremities. PSYCH: Normal mood, normal affect. Active Medications Generic Name Dose Route Start Last Admin Trade Name Freq PRN Reason Stop Dose Admin Acetaminophen 650 mg 09/17/19 16:54 Tylenol - PO Q6H PRN PAIN OR FEVER Artificial Tears 1 drop 09/17/19 22:00 09/22/19 11:26 Artificial Tears OU 1 drop BID [facility] Administration Ascorbic Acid 500 mg 09/18/19 10:00 09/22/19 11:26 Vitamin C - PO 500 mg DAILY [facility] Administration Carbidopa/Levodopa 1 each 09/18/19 22:00 09/22/19 11:26 Sinemet 25/250 - PO 1 each BID [facility] Administration Docusate Sodium 100 mg 09/17/19 22:00 09/22/19 06:04 Colace - PO Not Given TID DAJA Losartan Potassium 50 mg 09/19/19 10:00 09/22/19 11:26 Cozaar - PO 50 mg DAILY [facility] Administration Metoprolol Succinate 50 mg 09/18/19 05:15 09/22/19 11:25 Toprol Xl - PO 50 mg DAILY [facility] Administration Multivitamins/Minerals/Vitamin C 1 tab 09/18/19 10:00 09/22/19 11:25 Tab-A-Vit - PO 1 tab DAILY [facility] Administration Quetiapine Fumarate 25 mg 09/18/19 22:00 09/21/19 22:57 Seroquel - PO 25 mg HS [facility] Administration Rosuvastatin Calcium 5 mg 09/21/19 22:00 09/21/19 22:57 Crestor - PO 5 mg HS [facility] Administration Senna 2 tab 09/17/19 22:00 09/21/19 22:53 Senna - PO Not Given HS [facility] Warfarin Sodium 3 mg 09/18/19 18:00 09/21/19 17:22 Coumadin - PO 3 mg DAILY@1800 [facility] Administration ASSESSMENT/PLAN: Patient was stable for discharge since yesterday and did not leave due brother not being available to accept patient back at the house. Accepted at [facility]. Patient remains stable for discharge. No changes in management. Problem List - Problems (1) Afib Code(s): I48.91 - UNSPECIFIED ATRIAL FIBRILLATION Qualifiers: Atrial fibrillation type: chronic (2) CHF (congestive heart failure) Code(s): I50.9 - HEART FAILURE, UNSPECIFIED Qualifiers: Heart failure type: systolic Heart failure chronicity: chronic Qualified Code(s): I50.22 - Chronic systolic (congestive) heart failure (3) Pacemaker Code(s): Z95.0 - PRESENCE OF CARDIAC PACEMAKER (4) Parkinson disease Code(s): G20 - PARKINSON'S DISEASE (5) DARIO (acute kidney injury) Code(s): N17.9 - ACUTE KIDNEY FAILURE, UNSPECIFIED Visit type - Emergency Visit Emergency Visit: Yes ED Registration Date: 09/17/19 Care time: The patient presented to the Emergency Department on the above date and was hospitalized for further evaluation of their emergent condition. - New Patient This patient is new to me today: No - Critical Care Critical Care patient: No
--- NOTE | 2019-09-22 15:50 | PN ---
Teaching Attending Note Name of Resident: Baldomero Long ATTENDING PHYSICIAN STATEMENT I saw and evaluated the patient. I reviewed the resident's note and discussed the case with the resident. I agree with the resident's findings and plan as documented. SUBJECTIVE: Patient is feeling well, with no acute distress. Vital Signs Temperature 98 F 09/22/19 09:00 Pulse Rate 68 09/22/19 09:00 Respiratory Rate 18 09/22/19 10:00 Blood Pressure 118/50 L 09/22/19 09:00 O2 Sat by Pulse Oximetry (%) 100 09/22/19 10:00 GENERAL: The patient is awake, alert, and fully oriented, in no acute distress. HEAD: Normal with no signs of trauma. EYES: PERRL, extraocular movements intact, sclera anicteric, conjunctiva clear. ENT: Ears normal, oropharynx clear without exudates, moist mucous membranes. NECK: Trachea midline, full range of motion, supple. LUNGS: Breath sounds equal, clear to auscultation bilaterally, no wheezes, no crackles, no accessory muscle use. HEART: Regular rate and rhythm, S1, S2 +, CARLI 2/6 , no rub or gallop. ABDOMEN: Soft, NT,ND, normoactive bowel sounds, no guarding, no rebound, no hepatosplenomegaly, no masses. EXTREMITIES: 2+ pulses, warm, well-perfused, no edema. NEUROLOGICAL: Cranial nerves II through XII grossly intact. Normal speech, gait not observed. PSYCH: Normal mood, normal affect. SKIN: Warm, dry, normal turgor, no rashes or lesions noted CBCD WBC 6.3 K/mm3 (4.0-10.0) 09/18/19 05:50 RBC 4.13 M/mm3 (4.00-5.60) 09/18/19 05:50 Hgb 13.3 GM/dL (11.7-16.9) 09/18/19 05:50 Hct 39.7 % (35.4-49) D 09/18/19 05:50 MCV 96.3 fl (80-96) H 09/18/19 05:50 MCHC 33.6 g/dl (32.0-35.9) 09/18/19 05:50 RDW 13.8 % (11.9-15.9) 09/18/19 05:50 Plt Count 154 K/MM3 (134-434) D 09/18/19 05:50 MPV 8.8 fl (7.5-11.1) 09/18/19 05:50 CMP Sodium 138 mmol/L (136-145) 09/18/19 05:50 Potassium 4.0 mmol/L (3.5-5.1) 09/18/19 05:50 Chloride 106 mmol/L (98-107) 09/18/19 05:50 Carbon Dioxide 26 mmol/L (21-32) 09/18/19 05:50 Anion Gap 6 MMOL/L (8-16) L 09/18/19 05:50 BUN 16.8 mg/dL (7-18) 09/18/19 05:50 Creatinine 0.9 mg/dL (0.55-1.3) 09/18/19 05:50 Random Glucose 91 mg/dL (74-106) 09/18/19 05:50 Calcium 9.0 mg/dL (8.5-10.1) 09/18/19 05:50 Total Bilirubin 0.7 mg/dL (0.2-1) 09/18/19 05:50 AST 18 U/L (15-37) 09/18/19 05:50 ALT 10 U/L (13-61) L 09/18/19 05:50 Alkaline Phosphatase 74 U/L (45-117) 09/18/19 05:50 Total Protein 6.6 g/dl (6.4-8.2) 09/18/19 05:50 Albumin 3.2 g/dl (3.4-5.0) L 09/18/19 05:50 CARDIAC ENZYMES Creatine Kinase 119 U/L (26-308) 09/17/19 13:00 Troponin I 0.02 ng/ml (0.00-0.05) 09/17/19 13:00 Home Medications Medication Instructions Recorded Ascorbate Calcium [Vitamin C] 500 mg PO DAILY #30 tablet 04/28/17 Multivitamins [Multivit ([facility] 1 tab PO DAILY #30 tab 04/28/17 Formulary)] Polyvinyl Alcohol [Artificial 1 drop OU BID 02/10/18 Tears] Docusate Sodium [Colace -] 100 mg PO TID capsule 02/12/18 Carbidopa/Levodopa 25/250 [Sinemet 1 each PO QID 09/17/19 25/250 -] Quetiapine Fumarate [Seroquel -] 25 mg PO HS 09/18/19 Losartan Potassium [Cozaar -] 50 mg PO DAILY tablet 09/20/19 Metoprolol Succinate [Toprol XL -] 50 mg PO DAILY tab.sr.24h 09/20/19 Warfarin Sodium 3 mg PO DAILY 09/20/19 Rosuvastatin [Crestor -] 5 mg PO DAILY 09/21/19 Laboratory Tests 09/17/19 09/18/19 09/18/19 13:00 05:50 16:20 INR 1.60 H 2.11 H 2.21 H 09/19/19 09/20/19 11:43 06:46 INR 2.28 H 2.29 H Microbiology 09/17/19 12:54 Blood - Peripheral Venous Blood Culture - Final NO GROWTH AFTER 5 DAYS INCUBATION 09/17/19 12:54 Blood - Peripheral Venous Blood Culture - Final NO GROWTH AFTER 5 DAYS INCUBATION 09/17/19 13:00 Urine - Urine Clean Catch Urine Culture - Final NO GROWTH OBTAINED Assessment and plan: Patient is an 79yom with PMhx with HTN, A fib on coumadin , systolic CHF , Vertigo, ICD placement , Parkinson's , PVD with angioplasty 2016, who presented from home due to not feeling well , was found to be in A fib with RVR #A fib with rate controlled on AC with therapeutic INR continue with coumadin 3mg daily. Continue toprol 5O XL daily. # H/o Systolic heart failure: EF 40-45% on echo this admission . cont increased dose of ARB/toprol # HTN : cont toprol and losartan . # h/o Parkinson's: cont sinemet #Hx of HLD: continue crestor dc home with VNS
== END 2019-09-22 13:59 | disposition home health service (06) ==
LOC: JER 12:15 → JERBED 15:02 → INTOOBSV 15:02 → J4W 17:17 → JERBED 09-19 16:22 → J4W 09-19 16:35
PROVIDERS: ADMIT Internal Medicine; ATTEND Internal Medicine
PROC: 3E033GC Introduction of Other Therapeutic Substance into Peripheral Vein, Percutaneous Approach (ICD-10-PCS; principal; 2019-09-17)
PROC: 3E0337Z Introduction of Electrolytic and Water Balance Substance into Peripheral Vein, Percutaneous Approach (ICD-10-PCS; 2019-09-17)
PROC: 3E0234Z Introduction of Serum, Toxoid and Vaccine into Muscle, Percutaneous Approach (ICD-10-PCS; 2019-09-17)
DX: I48.0 Paroxysmal atrial fibrillation (principal); E87.2 Acidosis; E86.0 Dehydration; R53.1 Weakness; I11.0 Hypertensive heart disease with heart failure; I50.20 Unspecified systolic (congestive) heart failure; R94.31 Abnormal electrocardiogram [ECG] [EKG]; G20 Parkinson's disease; I73.9 Peripheral vascular disease, unspecified; Z98.61 Coronary angioplasty status; Z79.01 Long term (current) use of anticoagulants; Z87.891 Personal history of nicotine dependence; Z95.810 Presence of automatic (implantable) cardiac defibrillator; N17.9 Acute kidney failure, unspecified
CPT/HCPCS: 36415; 71045-TC-FY; 80053; 81003; 82550; 82803; 82962; 83605; 83735; 84100; 84443; 84484; 85025; 85610; 85730; 87040; 87086; 90471; 90670; 93005; 93010; 93306-TC; 96361; 96374; 97116-GP; 97161-GP; 99285-25; G0378; J7030; Q2036

== ENCOUNTER 2021-07-24 10:27 | Inpatient (IN) | payer OTHER ==
[2021-07-24] MEDS ORDERED: SODIUM CHLORIDE 2,150 ML IV ONE (11:28)
[2021-07-24] MEDS ORDERED: ONDANSETRON 4 MG/2 ML VIAL IVPUSH ONE (11:29)
[2021-07-24] MEDS ORDERED: PANTOPRAZOLE SODIUM 40 MG VIAL IVPUSH ONE (11:29)
[2021-07-24 12:09] LABS: BASO % 0.1 % (0-2.0); HEMATOCRIT 47.7 % (35.4-49); HEMOGLOBIN 15.6 GM/dL (11.7-16.9); LYMPH % 5.1 % (8-40); MCHC 32.7 g/dl (32.0-35.9); MEAN CELL VOLUME 94.7 fl (80-96); MEAN PLT VOLUME 8.5 fl (7.5-11.1); NEUT % 84.8 % (42.8-82.8); PLATELET COUNT 250 10^3/uL (134-434); RBC 5.03 M/mm3 (4.00-5.60); RDW 13.6 % (11.9-15.9)
[2021-07-24 12:11] LABS: VENOUS BASE EXCESS -1.9 mmol/L (-2-2); VENOUS O2 SATURATION 25.8 % (70-80); VENOUS PCO2 50.2 mmHg (38-52); VENOUS PH 7.314 (7.310-7.410)
[2021-07-24 12:15] LABS: ACTIVATED PTT 46.5 SECONDS (25.2-36.5)
[2021-07-24 12:25] LABS: INR 5.53 (0.83-1.09)
[2021-07-24 12:27] LABS: ALBUMIN 3.9 g/dl (3.4-5.0); BLOOD UREA NITROGEN 41.2 mg/dL (7-18); CALCIUM 10.4 mg/dL (8.5-10.1)
[2021-07-24 12:30] LABS: CREATININE 1.8 mg/dL (0.55-1.3)
[2021-07-24] MEDS ORDERED: PHYTONADIONE 10 MG/1 ML AMP IVPB ONE (12:31)
[2021-07-24 12:32] LABS: BILIRUBIN,TOTAL 0.8 mg/dL (0.2-1); TOT PROT 7.7 g/dl (6.4-8.2)
[2021-07-24 12:58] LABS: LACTIC ACID 5.7 mmol/L (0.4-2.0)
[2021-07-24] MEDS ORDERED: CEFTRIAXONE 1 GM in DEXTROSE 5%-WATER - 50 ML IVPB ONE (13:06)
[2021-07-24] MEDS ORDERED: AZITHROMYCIN IVPB 500 MG in DEXTROSE 5%-WATER - 250 ML IVPB ONE (13:08)
[2021-07-24] MEDS ORDERED: CEFTRIAXONE 1 GM/50 ML BAG ONE (13:29)
[2021-07-24] MEDS ORDERED: AZITHROMYCIN IVPB 500 MG/250 ML BAG IVPB ONE (13:29)
[2021-07-24 14:15] LABS: MAGNESIUM 2.4 mg/dL (1.8-2.4)
[2021-07-24] MEDS ORDERED: METOPROLOL TARTRATE 5 MG/5 ML VIAL IVPUSH ONE ×2 (14:17→19:17)
[2021-07-24 14:19] LABS: PHOSPHOROUS 5.4 mg/dL (2.5-4.9)
[2021-07-24] MEDS ORDERED: METOPROLOL TARTRATE 5 MG/5 ML VIAL ONE (14:41)
[2021-07-24 16:14] LABS: EPI CELLS 8 /uL (0-25.1); HYALINE CASTS 9 /uL (0-3.1); URINE APPEARANCE CLOUDY; URINE BACTERIA 12 /uL (0-1359); URINE BILIRUBIN NEGATIVE (NEGATIVE); URINE COLOR YELLOW; URINE GLUCOSE (UA) 1+ (NEGATIVE); URINE KETONE TRACE (NEGATIVE); URINE LEUK ESTERASE 2+ (NEGATIVE); URINE NITRITE NEGATIVE (NEGATIVE); URINE PROTEIN 2+ (NEGATIVE); URINE RBC 58 /uL (0-23.9); URINE WBC 2537 /uL (0-25.8)
[2021-07-24] MEDS ORDERED: ONDANSETRON 4 MG TABLET PO ONE (16:49)
[2021-07-24] MEDS ORDERED: ONDANSETRON 4 MG/2 ML VIAL ONE (16:50)
[2021-07-24 16:51] LABS: LACTIC ACID 4.6 mmol/L (0.4-2.0)
[2021-07-24] MEDS ORDERED: PANTOPRAZOLE SODIUM 80 MG in SODIUM CHLORIDE 100 ML IVPB SCH (17:15)
[2021-07-24 17:47] LABS: BASO % 0.1 % (0-2.0); HEMATOCRIT 45.7 % (35.4-49); HEMOGLOBIN 14.9 GM/dL (11.7-16.9); LYMPH % 4.7 % (8-40); MCH 30.9 pg (25.7-33.7); MCHC 32.5 g/dl (32.0-35.9); MEAN CELL VOLUME 95.2 fl (80-96); MEAN PLT VOLUME 8.9 fl (7.5-11.1); MONO % 8.5 % (3.8-10.2); NEUT % 86.7 % (42.8-82.8); PLATELET COUNT 221 10^3/uL (134-434); RDW 13.9 % (11.9-15.9); WHITE BLOOD COUNT 15.6 K/mm3 (4.0-10.0)
[2021-07-24] MEDS ORDERED: ONDANSETRON 4 MG/2 ML VIAL IVPUSH PRN (17:52)
[2021-07-24] MEDS ORDERED: ARTIFICIAL TEARS (POLYVINYL ALCOHOL) OPTH DROPS OU PRN (17:55)
[2021-07-24] MEDS ORDERED: PANTOPRAZOLE SODIUM 160 MG in SODIUM CHLORIDE 290 ML IVPB SCH (18:00)
[2021-07-24] MEDS ORDERED: HUM PROTHROMBIN CPLX(PCC)4FACT 1,000 UNIT/40 ML VIAL IVPB ONE ×2 (18:00→18:15)
[2021-07-24] MEDS ORDERED: SODIUM CHLORIDE 0.9% 500 ML INFUS.BAG IV ONE (18:37)
[2021-07-24] MEDS ORDERED: PIPERACILLIN/TAZOBACTAM 4.5 GM VIAL IVPB ONE (19:15)
[2021-07-24] MEDS ORDERED: DEXTROSE 5%-WATER 100 ML IVPB ONE (19:16)
[2021-07-24] MEDS: PIPERACILLIN/TAZOB 4.5 GM 4.5 GM in DEXTROSE 5%-WATER 100 ML IVPB SCH (19:19)
[2021-07-24 20:47] LABS: HEMATOCRIT 43.3 % (35.4-49); HEMOGLOBIN 14.3 GM/dL (11.7-16.9); MEAN PLT VOLUME 8.3 fl (7.5-11.1); PLATELET COUNT 191 10^3/uL (134-434); RBC 4.61 M/mm3 (4.00-5.60); RDW 13.8 % (11.9-15.9); WHITE BLOOD COUNT 12.7 K/mm3 (4.0-10.0)
[2021-07-24] MEDS ORDERED: CHLORHEXIDINE GLUCONATE 4% CLEANSER FOR DECOLONIZATION TP SCH (22:00)
[2021-07-24] MEDS ORDERED: ACETAMINOPHEN 1000 MG/100 ML BAG IVPB PRN (23:18)
[2021-07-24] MEDS: MUPIROCIN 2% TOPICAL OINTMENT FOR DECOLONIZATION NS SCH (23:22)
[2021-07-24] MEDS: SUCRALFATE 1 GM/10 ML UNIT DOSE CUPS PO SCH (23:25)
[2021-07-24] MEDS: CARBIDOPA/LEVODOPA 25/250 TABLET (FP) PO SCH (23:25)
[2021-07-24] MEDS: LACTATED RINGERS SOLUTION 1,000 ML/1,000 ML INFUS.BAG IV SCH (23:26)
[2021-07-24] MEDS ORDERED: METOPROLOL TARTRATE 5 MG/5 ML VIAL IVPUSH PRN (23:50)
[2021-07-25] MEDS ORDERED: PIPERACILLIN/TAZOBACTAM 4.5 GM VIAL IVPB ONE ×2 (01:56→09:31)
[2021-07-25] MEDS ORDERED: DEXTROSE 5%-WATER 100 ML IVPB ONE ×2 (01:56→09:31)
[2021-07-25] MEDS ORDERED: PIPERACILLIN/TAZOB 4.5 GM 4.5 GM in DEXTROSE 5%-WATER 100 ML IVPB SCH ×2 (02:00→18:00)
[2021-07-25] MEDS: PIPERACILLIN/TAZOB 4.5 GM 4.5 GM in DEXTROSE 5%-WATER 100 ML IVPB SCH ×2 (02:21→09:38)
[2021-07-25 04:56] LABS: BASO % 0.1 % (0-2.0); HEMATOCRIT 41.8 % (35.4-49); HEMOGLOBIN 14.1 GM/dL (11.7-16.9); LYMPH % 6.5 % (8-40); MCH 31.7 pg (25.7-33.7); MCHC 33.7 g/dl (32.0-35.9); MEAN CELL VOLUME 93.9 fl (80-96); MEAN PLT VOLUME 8.7 fl (7.5-11.1); MONO % 15.7 % (3.8-10.2); NEUT % 77.7 % (42.8-82.8); PLATELET COUNT 185 10^3/uL (134-434); RBC 4.45 M/mm3 (4.00-5.60); RDW 13.6 % (11.9-15.9); WHITE BLOOD COUNT 11.1 K/mm3 (4.0-10.0)
[2021-07-25] MEDS ORDERED: AMIODARONE IN DEXTROSE,ISO-OSM 150 MG/100 ML BAG IVPB ONE (05:14)
[2021-07-25] MEDS ORDERED: AMIODARONE IN DEXTROSE,ISO-OSM 360 MG/200 ML BAG ONE (05:31)
[2021-07-25] MEDS ORDERED: AMIODARONE IN DEXTROSE,ISO-OSM 150 MG/100 ML BAG ONE (05:31)
[2021-07-25] MEDS ORDERED: AMIODARONE IN DEXTROSE,ISO-OSM 360 MG/200 ML BAG IVPB ONE (05:43)
[2021-07-25 07:02] LABS: BASO % 0.1 % (0-2.0); BLOOD UREA NITROGEN 62.2 mg/dL (7-18); CALCIUM 9.7 mg/dL (8.5-10.1); HEMATOCRIT 43.5 % (35.4-49); HEMOGLOBIN 14.1 GM/dL (11.7-16.9); LYMPH % 7.6 % (8-40); MAGNESIUM 2.4 mg/dL (1.8-2.4); MCH 31.3 pg (25.7-33.7); MCHC 32.4 g/dl (32.0-35.9); MEAN CELL VOLUME 96.5 fl (80-96); MEAN PLT VOLUME 8.8 fl (7.5-11.1); MONO % 17.3 % (3.8-10.2); PLATELET COUNT 189 10^3/uL (134-434); RBC 4.51 M/mm3 (4.00-5.60); RDW 13.5 % (11.9-15.9)
[2021-07-25 07:05] LABS: CREATININE 1.9 mg/dL (0.55-1.3); PHOSPHOROUS 3.9 mg/dL (2.5-4.9)
[2021-07-25 07:07] LABS: BILIRUBIN,TOTAL 1.1 mg/dL (0.2-1); TOT PROT 6.4 g/dl (6.4-8.2)
[2021-07-25 07:08] LABS: INR 1.19 (0.83-1.09); PROTHROMBIN TIME (PATIENT) 13.3 SEC (9.7-13.0)
[2021-07-25 07:10] LABS: ACTIVATED PTT 33.1 SECONDS (25.2-36.5); ALBUMIN 3.2 g/dl (3.4-5.0)
[2021-07-25] MEDS: INSULIN SLIDING SCALE (NOVOLOG) 1 VIAL SQ SCH ×4 (07:22→22:29)
[2021-07-25] MEDS: LACTATED RINGERS SOLUTION 1,000 ML/1,000 ML INFUS.BAG IV SCH (08:25)
[2021-07-25] MEDS: CARBIDOPA/LEVODOPA 25/250 TABLET (FP) PO SCH ×2 (09:27→14:13)
[2021-07-25] MEDS: SUCRALFATE 1 GM/10 ML UNIT DOSE CUPS PO SCH (09:27)
[2021-07-25] MEDS ORDERED: ACETAMINOPHEN 1000 MG/100 ML BAG IVPB ONE (09:45)
[2021-07-25] MEDS ORDERED: PANTOPRAZOLE SODIUM 40 MG VIAL IVPUSH SCH (10:00)
[2021-07-25] MEDS: MUPIROCIN 2% TOPICAL OINTMENT FOR DECOLONIZATION NS SCH ×2 (10:08→22:30)
[2021-07-25] MEDS ORDERED: LIDOCAINE HCL/PF 2% SDV 5ML VIAL ONE (10:52)
[2021-07-25] MEDS ORDERED: MIDAZOLAM HCL 2 MG/2 ML SINGLE DOSE VIAL ONE (10:53)
[2021-07-25] MEDS ORDERED: ROCURONIUM BROMIDE 50 MG/5 ML SYRINGE ONE (10:53)
[2021-07-25] MEDS ORDERED: PROPOFOL 20 ML ONE (10:54)
[2021-07-25 11:39] LABS: BASO % 0.1 % (0-2.0); EOS % 0.1 % (0-4.5); HEMATOCRIT 39.6 % (35.4-49); HEMOGLOBIN 13.3 GM/dL (11.7-16.9); LYMPH % 8.2 % (8-40); MCH 31.8 pg (25.7-33.7); MCHC 33.6 g/dl (32.0-35.9); MEAN CELL VOLUME 94.4 fl (80-96); MEAN PLT VOLUME 8.1 fl (7.5-11.1); MONO % 15.6 % (3.8-10.2); PLATELET COUNT 174 10^3/uL (134-434); RDW 13.7 % (11.9-15.9); WHITE BLOOD COUNT 7.9 K/mm3 (4.0-10.0)
[2021-07-25] MEDS ORDERED: AMIODARONE IN DEXTROSE,ISO-OSM 360 MG/200 ML BAG IVPB SCH (11:43)
[2021-07-25] MEDS ORDERED: NEOSTIGMINE METHYLSULFATE 0.5 MG/ML - 10 ML MDV ONE (13:04)
[2021-07-25] MEDS ORDERED: GLYCOPYRROLATE 0.2 MG/1 ML VIAL ONE (13:04)
[2021-07-25] MEDS: AMIODARONE IN DEXTROSE,ISO-OSM 360 MG/200 ML BAG IVPB SCH ×2 (13:45→22:30)
[2021-07-25] MEDS ORDERED: SODIUM CHLORIDE 1,000 ML IV SCH (14:00)
[2021-07-25] MEDS ORDERED: ARTIFICIAL TEARS (POLYVINYL ALCOHOL) OPTH DROPS OU PRN (14:57)
[2021-07-25] MEDS ORDERED: DEXTROSE 5%-WATER - 50 ML IVPB ONE ×2 (15:40→21:39)
[2021-07-25] MEDS ORDERED: PIPERACILLIN/TAZOBACTAM 3.375 GM VIAL IVPB ONE ×2 (15:40→21:39)
[2021-07-25] MEDS: PIPERACILLIN/TAZOB 3.375 GM 3.375 GM in DEXTROSE 5%-WATER - 50 ML IVPB SCH ×2 (15:43→18:36)
[2021-07-25] MEDS: ACETAMINOPHEN 1000 MG/100 ML BAG IVPB PRN ×2 (15:44→22:36)
[2021-07-25] MEDS ORDERED: SODIUM CHLORIDE 250 ML IV STA (18:33)
[2021-07-25] MEDS: CHLORHEXIDINE GLUCONATE 4% CLEANSER FOR DECOLONIZATION TP SCH (22:30)
[2021-07-26] MEDS: PIPERACILLIN/TAZOB 3.375 GM 3.375 GM in DEXTROSE 5%-WATER - 50 ML IVPB SCH ×3 (01:35→18:07)
[2021-07-26] MEDS ORDERED: ATROPINE SULFATE 1 MG/10 ML DISP.SYRIN ONE (04:01)
[2021-07-26] MEDS: INSULIN SLIDING SCALE (NOVOLOG) 1 VIAL SQ SCH ×4 (06:31→21:37)
[2021-07-26 07:47] LABS: BLOOD UREA NITROGEN 51.6 mg/dL (7-18)
[2021-07-26 07:50] LABS: CREATININE 1.6 mg/dL (0.55-1.3)
[2021-07-26 07:51] LABS: BASO % 0.1 % (0-2.0); EOS % 0.3 % (0-4.5); HEMATOCRIT 33.8 % (35.4-49); HEMOGLOBIN 11.7 GM/dL (11.7-16.9); LYMPH % 10.9 % (8-40); MCH 32.3 pg (25.7-33.7); MCHC 34.5 g/dl (32.0-35.9); MEAN CELL VOLUME 93.5 fl (80-96); MEAN PLT VOLUME 8.7 fl (7.5-11.1); MONO % 16.3 % (3.8-10.2); NEUT % 72.4 % (42.8-82.8); PLATELET COUNT 144 10^3/uL (134-434); RBC 3.61 M/mm3 (4.00-5.60); RDW 13.5 % (11.9-15.9); TOT PROT 5.5 g/dl (6.4-8.2); WHITE BLOOD COUNT 5.4 K/mm3 (4.0-10.0)
[2021-07-26 07:54] LABS: ALBUMIN 2.4 g/dl (3.4-5.0); CALCIUM 8.2 mg/dL (8.5-10.1)
[2021-07-26] MEDS ORDERED: DEXTROSE 5%-WATER - 50 ML IVPB ONE ×3 (09:43→21:23)
[2021-07-26] MEDS ORDERED: PIPERACILLIN/TAZOBACTAM 3.375 GM VIAL IVPB ONE ×3 (09:43→21:23)
[2021-07-26] MEDS ORDERED: PANTOPRAZOLE SODIUM 40 MG VIAL IVPUSH SCH (10:00)
[2021-07-26] MEDS: PANTOPRAZOLE SODIUM 40 MG VIAL IVPUSH SCH (10:06)
[2021-07-26] MEDS: MUPIROCIN 2% TOPICAL OINTMENT FOR DECOLONIZATION NS SCH ×2 (10:07→21:37)
[2021-07-26] MEDS: ACETAMINOPHEN 1000 MG/100 ML BAG IVPB PRN ×2 (10:31→18:06)
[2021-07-26] MEDS: DEXTROSE 5%-LACTATED RINGERS 1,000 ML IV SCH (16:41)
[2021-07-26] MEDS ORDERED: METOPROLOL TARTRATE 5 MG/5 ML VIAL IVPUSH ONE (17:19)
[2021-07-26] MEDS: CHLORHEXIDINE GLUCONATE 4% CLEANSER FOR DECOLONIZATION TP SCH (21:37)
[2021-07-27] MEDS ORDERED: PIPERACILLIN/TAZOBACTAM 3.375 GM VIAL IVPB ONE ×4 (02:03→22:42)
[2021-07-27] MEDS ORDERED: DEXTROSE 5%-WATER - 50 ML IVPB ONE ×4 (02:03→22:42)
[2021-07-27] MEDS: PIPERACILLIN/TAZOB 3.375 GM 3.375 GM in DEXTROSE 5%-WATER - 50 ML IVPB SCH ×3 (02:04→17:21)
[2021-07-27] MEDS: INSULIN SLIDING SCALE (NOVOLOG) 1 VIAL SQ SCH ×4 (06:03→22:58)
[2021-07-27 06:55] LABS: BASO % 0.5 % (0-2.0); EOS % 1.6 % (0-4.5); HEMATOCRIT 32.9 % (35.4-49); HEMOGLOBIN 10.7 GM/dL (11.7-16.9); LYMPH % 12.3 % (8-40); MCH 31.2 pg (25.7-33.7); MCHC 32.6 g/dl (32.0-35.9); MEAN CELL VOLUME 95.8 fl (80-96); MONO % 16.1 % (3.8-10.2); NEUT % 69.5 % (42.8-82.8); PLATELET COUNT 133 10^3/uL (134-434); RBC 3.43 M/mm3 (4.00-5.60); RDW 13.4 % (11.9-15.9); WHITE BLOOD COUNT 4.8 K/mm3 (4.0-10.0)
[2021-07-27 07:11] LABS: CALCIUM 8.3 mg/dL (8.5-10.1)
[2021-07-27 07:12] LABS: BLOOD UREA NITROGEN 30.8 mg/dL (7-18); MAGNESIUM 2.3 mg/dL (1.8-2.4)
[2021-07-27 07:16] LABS: BILIRUBIN,TOTAL 0.8 mg/dL (0.2-1); PHOSPHOROUS 1.3 mg/dL (2.5-4.9); TOT PROT 5.5 g/dl (6.4-8.2)
[2021-07-27 07:44] LABS: ALBUMIN 2.6 g/dl (3.4-5.0)
[2021-07-27] MEDS ORDERED: PT OWN MED DRAWER 7, Y5N ONE ×4 (10:28→12:18)
[2021-07-27 10:32] VITALS: BMI 24.1
[2021-07-27] MEDS: ACETAMINOPHEN 1000 MG/100 ML BAG IVPB PRN ×2 (10:34→20:45)
[2021-07-27] MEDS: MUPIROCIN 2% TOPICAL OINTMENT FOR DECOLONIZATION NS SCH ×2 (10:35→22:57)
[2021-07-27] MEDS: PANTOPRAZOLE SODIUM 40 MG VIAL IVPUSH SCH (10:35)
[2021-07-27] MEDS: DEXTROSE 5%-LACTATED RINGERS 1,000 ML IV SCH (12:00)
[2021-07-27] MEDS: DEXTROSE 5%-WATER - 1,000 ML IV SCH (12:32)
[2021-07-27] MEDS: MULTIVIT INJ. ADULT COMBO WITH VIT K 1 COMBO 10 ML VIAL IV SCH (13:27)
[2021-07-27 18:25] LABS: BLOOD UREA NITROGEN 22.3 mg/dL (7-18); CALCIUM 8.5 mg/dL (8.5-10.1)
[2021-07-27 18:28] LABS: CREATININE 0.8 mg/dL (0.55-1.3)
[2021-07-27] MEDS: METOPROLOL TARTRATE 5 MG/5 ML VIAL IVPUSH PRN (22:57)
[2021-07-27] MEDS: CHLORHEXIDINE GLUCONATE 4% CLEANSER FOR DECOLONIZATION TP SCH (22:58)
[2021-07-28] MEDS ORDERED: DEXTROSE 5%-WATER - 50 ML IVPB ONE ×3 (01:34→17:43)
[2021-07-28] MEDS ORDERED: PIPERACILLIN/TAZOBACTAM 3.375 GM VIAL IVPB ONE ×3 (01:34→17:42)
[2021-07-28] MEDS: PIPERACILLIN/TAZOB 3.375 GM 3.375 GM in DEXTROSE 5%-WATER - 50 ML IVPB SCH ×3 (01:44→18:00)
[2021-07-28] MEDS: METOPROLOL TARTRATE 5 MG/5 ML VIAL IVPUSH PRN (03:54)
[2021-07-28] MEDS: INSULIN SLIDING SCALE (NOVOLOG) 1 VIAL SQ SCH ×4 (06:32→22:04)
[2021-07-28 06:54] LABS: BLOOD UREA NITROGEN 19.5 mg/dL (7-18); CALCIUM 8.4 mg/dL (8.5-10.1); MAGNESIUM 2.3 mg/dL (1.8-2.4)
[2021-07-28 06:58] LABS: CREATININE 0.9 mg/dL (0.55-1.3); PHOSPHOROUS 1.5 mg/dL (2.5-4.9)
[2021-07-28 07:13] LABS: BASO % 1.1 % (0-2.0); EOS % 2.6 % (0-4.5); HEMATOCRIT 31.6 % (35.4-49); HEMOGLOBIN 10.4 GM/dL (11.7-16.9); LYMPH % 12.4 % (8-40); MCH 31.3 pg (25.7-33.7); MCHC 32.9 g/dl (32.0-35.9); MEAN CELL VOLUME 95.1 fl (80-96); MEAN PLT VOLUME 9.3 fl (7.5-11.1); MONO % 13.9 % (3.8-10.2); PLATELET COUNT 149 10^3/uL (134-434); RBC 3.32 M/mm3 (4.00-5.60); RDW 13.1 % (11.9-15.9); WHITE BLOOD COUNT 6.4 K/mm3 (4.0-10.0)
[2021-07-28] MEDS: PANTOPRAZOLE SODIUM 40 MG VIAL IVPUSH SCH (09:23)
[2021-07-28] MEDS: MUPIROCIN 2% TOPICAL OINTMENT FOR DECOLONIZATION NS SCH ×2 (09:45→21:45)
[2021-07-28] MEDS ORDERED: LOSARTAN POTASSIUM 50 MG TABLET PO SCH (10:00)
[2021-07-28] MEDS ORDERED: PT OWN MED DRAWER 7, Y5N ONE (10:19)
[2021-07-28] MEDS: CARBIDOPA/LEVODOPA 25/250 TABLET (FP) PO SCH ×4 (11:02→21:45)
[2021-07-28] MEDS: NAPH,MB-DB/K PH,MBDB POWDER PACKET PO SCH (11:02)
[2021-07-28] MEDS: METOPROLOL TARTRATE 25 MG TABLET (FP) PO SCH ×2 (12:00→21:45)
[2021-07-28] MEDS: DEXTROSE 5%-WATER - 1,000 ML IV SCH (12:15)
[2021-07-28] MEDS: MULTIVIT INJ. ADULT COMBO WITH VIT K 1 COMBO 10 ML VIAL IV SCH (14:32)
[2021-07-28 16:33] LABS: INR 1.61 (0.83-1.09); PROTHROMBIN TIME (PATIENT) 18.1 SEC (9.7-13.0)
[2021-07-28] MEDS: WARFARIN NA 2 MG TABLET PO SCH (17:52)
[2021-07-28] MEDS: CHLORHEXIDINE GLUCONATE 4% CLEANSER FOR DECOLONIZATION TP SCH (21:45)
[2021-07-29] MEDS ORDERED: DEXTROSE 5%-WATER - 50 ML IVPB ONE ×3 (01:36→16:34)
[2021-07-29] MEDS ORDERED: PIPERACILLIN/TAZOBACTAM 3.375 GM VIAL IVPB ONE ×3 (01:36→16:34)
[2021-07-29] MEDS: PIPERACILLIN/TAZOB 3.375 GM 3.375 GM in DEXTROSE 5%-WATER - 50 ML IVPB SCH ×3 (01:44→18:09)
[2021-07-29] MEDS: INSULIN SLIDING SCALE (NOVOLOG) 1 VIAL SQ SCH ×4 (06:13→21:28)
[2021-07-29 08:10] LABS: HEMATOCRIT 38.8 % (35.4-49); HEMOGLOBIN 12.8 GM/dL (11.7-16.9); MCH 31.2 pg (25.7-33.7); MCHC 33.1 g/dl (32.0-35.9); MEAN CELL VOLUME 94.3 fl (80-96); MEAN PLT VOLUME 8.6 fl (7.5-11.1); PLATELET COUNT 185 10^3/uL (134-434); RBC 4.11 M/mm3 (4.00-5.60); WHITE BLOOD COUNT 6.9 K/mm3 (4.0-10.0)
[2021-07-29 08:25] LABS: INR 1.77 (0.83-1.09); PROTHROMBIN TIME (PATIENT) 20.8 SEC (9.7-13.0)
[2021-07-29 08:29] LABS: ALBUMIN 2.7 g/dl (3.4-5.0); BLOOD UREA NITROGEN 17.4 mg/dL (7-18); CALCIUM 8.3 mg/dL (8.5-10.1)
[2021-07-29 08:32] LABS: CREATININE 0.9 mg/dL (0.55-1.3)
[2021-07-29 08:34] LABS: BILIRUBIN,TOTAL 0.8 mg/dL (0.2-1); TOT PROT 6.5 g/dl (6.4-8.2)
[2021-07-29] MEDS: METOPROLOL TARTRATE 5 MG/5 ML VIAL IVPUSH PRN (10:11)
[2021-07-29] MEDS: CARBIDOPA/LEVODOPA 25/250 TABLET (FP) PO SCH ×4 (10:17→21:18)
[2021-07-29] MEDS: NAPH,MB-DB/K PH,MBDB POWDER PACKET PO SCH (10:18)
[2021-07-29] MEDS: MULTIVIT INJ. ADULT COMBO WITH VIT K 1 COMBO 10 ML VIAL IV SCH (10:18)
[2021-07-29] MEDS: MUPIROCIN 2% TOPICAL OINTMENT FOR DECOLONIZATION NS SCH ×2 (10:18→21:18)
[2021-07-29] MEDS: PANTOPRAZOLE SODIUM 40 MG VIAL IVPUSH SCH (10:18)
[2021-07-29] MEDS: METOPROLOL TARTRATE 25 MG TABLET (FP) PO SCH (10:18)
[2021-07-29] MEDS: KCL 10 MEQ IVPB 10 MEQ/100 ML INFUS.BAG IVPB SCH ×3 (14:49→18:46)
[2021-07-29] MEDS ORDERED: ACETAMINOPHEN 325 MG TABLET (FP) PO PRN (15:50)
[2021-07-29] MEDS: WARFARIN NA 2 MG TABLET PO SCH (17:27)
[2021-07-29] MEDS: CHLORHEXIDINE GLUCONATE 4% CLEANSER FOR DECOLONIZATION TP SCH (21:18)
[2021-07-30] MEDS ORDERED: PIPERACILLIN/TAZOBACTAM 3.375 GM VIAL IVPB ONE ×3 (01:08→17:08)
[2021-07-30] MEDS ORDERED: DEXTROSE 5%-WATER - 50 ML IVPB ONE ×3 (01:09→17:08)
[2021-07-30] MEDS: PIPERACILLIN/TAZOB 3.375 GM 3.375 GM in DEXTROSE 5%-WATER - 50 ML IVPB SCH ×3 (01:41→17:28)
[2021-07-30] MEDS: INSULIN SLIDING SCALE (NOVOLOG) 1 VIAL SQ SCH ×4 (07:28→22:23)
[2021-07-30] MEDS: MUPIROCIN 2% TOPICAL OINTMENT FOR DECOLONIZATION NS SCH (09:42)
[2021-07-30] MEDS: NAPH,MB-DB/K PH,MBDB POWDER PACKET PO SCH (09:42)
[2021-07-30] MEDS: PANTOPRAZOLE SODIUM 40 MG VIAL IVPUSH SCH (09:42)
[2021-07-30] MEDS: CARBIDOPA/LEVODOPA 25/250 TABLET (FP) PO SCH ×4 (09:42→22:24)
[2021-07-30] MEDS: MULTIVIT INJ. ADULT COMBO WITH VIT K 1 COMBO 10 ML VIAL IV SCH (09:43)
[2021-07-30 17:42] LABS: INR 2.28 (0.83-1.09); PROTHROMBIN TIME (PATIENT) 25.8 SEC (9.7-13.0)
[2021-07-30] MEDS: WARFARIN NA 2 MG TABLET PO SCH (17:51)
[2021-07-30] MEDS: CHLORHEXIDINE GLUCONATE 4% CLEANSER FOR DECOLONIZATION TP SCH (22:23)
[2021-07-31] MEDS ORDERED: PIPERACILLIN/TAZOBACTAM 3.375 GM VIAL IVPB ONE ×3 (01:53→17:32)
[2021-07-31] MEDS ORDERED: DEXTROSE 5%-WATER - 50 ML IVPB ONE ×3 (01:53→17:32)
[2021-07-31] MEDS: PIPERACILLIN/TAZOB 3.375 GM 3.375 GM in DEXTROSE 5%-WATER - 50 ML IVPB SCH ×2 (02:19→10:27)
[2021-07-31] MEDS: INSULIN SLIDING SCALE (NOVOLOG) 1 VIAL SQ SCH ×4 (07:15→22:18)
[2021-07-31 08:45] LABS: CALCIUM 8.3 mg/dL (8.5-10.1)
[2021-07-31 08:46] LABS: ALBUMIN 2.3 g/dl (3.4-5.0); BLOOD UREA NITROGEN 10.5 mg/dL (7-18)
[2021-07-31 08:49] LABS: CREATININE 0.8 mg/dL (0.55-1.3)
[2021-07-31 08:50] LABS: BILIRUBIN,TOTAL 0.6 mg/dL (0.2-1); TOT PROT 5.7 g/dl (6.4-8.2)
[2021-07-31] MEDS ORDERED: PT OWN MED DRAWER 7, Y5N ONE (09:48)
[2021-07-31] MEDS: MULTIVIT INJ. ADULT COMBO WITH VIT K 1 COMBO 10 ML VIAL IV SCH (10:26)
[2021-07-31] MEDS: CARBIDOPA/LEVODOPA 25/250 TABLET (FP) PO SCH ×4 (10:27→22:18)
[2021-07-31] MEDS: NAPH,MB-DB/K PH,MBDB POWDER PACKET PO SCH (10:27)
[2021-07-31] MEDS: PANTOPRAZOLE 40 MG TABLET PO SCH (10:27)
[2021-07-31] MEDS ORDERED: ARTIFICIAL TEARS (POLYVINYL ALCOHOL) OPTH DROPS OU PRN (10:34)
[2021-07-31] MEDS: LOSARTAN POTASSIUM 25 MG TABLET PO SCH (12:00)
[2021-07-31 12:06] LABS: INR 2.2 (0.83-1.09)
[2021-07-31] MEDS: WARFARIN NA 2 MG TABLET PO SCH (17:37)
[2021-07-31] MEDS ORDERED: PIPERACILLIN/TAZOB 3.375 GM 3.375 GM in DEXTROSE 5%-WATER - 50 ML IVPB SCH (18:00)
[2021-07-31] MEDS ORDERED: CHLORHEXIDINE GLUCONATE 4% CLEANSER FOR DECOLONIZATION TP SCH (22:00)
[2021-07-31] MEDS: metoPROLOL SUCCINATE 25 MG TAB.SR.24H (FP) PO SCH (22:18)
[2021-08-01] MEDS: INSULIN SLIDING SCALE (NOVOLOG) 1 VIAL SQ SCH ×3 (06:34→17:25)
[2021-08-01 07:30] LABS: INR 2.21 (0.83-1.09); PROTHROMBIN TIME (PATIENT) 26.1 SEC (9.7-13.0)
[2021-08-01] MEDS: PANTOPRAZOLE 40 MG TABLET PO SCH (09:58)
[2021-08-01] MEDS: metoPROLOL SUCCINATE 25 MG TAB.SR.24H (FP) PO SCH (09:58)
[2021-08-01] MEDS: LOSARTAN POTASSIUM 25 MG TABLET PO SCH (09:58)
[2021-08-01] MEDS ORDERED: MULTIVIT INJ. ADULT COMBO WITH VIT K 1 COMBO 10 ML VIAL IV SCH (10:00)
[2021-08-01] MEDS ORDERED: NAPH,MB-DB/K PH,MBDB POWDER PACKET PO SCH (10:00)
[2021-08-01] MEDS: CARBIDOPA/LEVODOPA 25/250 TABLET (FP) PO SCH ×3 (10:03→17:27)
[2021-08-01 12:13] VITALS: TEMP 97.2
[2021-08-01] MEDS: WARFARIN NA 2 MG TABLET PO SCH (17:25)
[2021-08-02 02:33] VITALS: BP 119/70; PULSE 80
== END 2021-08-01 19:50 | DRG 854 ==
LOC: JER 10:27 → JERBED 15:39 → JICU 18:18 → J2W 07-30 21:10
PROVIDERS: ADMIT Internal Medicine; ATTEND Family Medicine
PROC: 0D9670Z Drainage of Stomach with Drainage Device, Via Natural or Artificial Opening (ICD-10-PCS; 2021-07-25)
PROC: 0YU50JZ Supplement Right Inguinal Region with Synthetic Substitute, Open Approach (ICD-10-PCS; principal; 2021-07-25 11:00)
DX: A41.9 Sepsis, unspecified organism (principal); K40.30 Unilateral inguinal hernia, with obstruction, without gangrene, not specified as recurrent; N17.9 Acute kidney failure, unspecified; I50.22 Chronic systolic (congestive) heart failure; N39.0 Urinary tract infection, site not specified; I47.1 Supraventricular tachycardia; I48.92 Unspecified atrial flutter; E87.0 Hyperosmolality and hypernatremia; I24.8 Other forms of acute ischemic heart disease; E87.2 Acidosis; Z79.01 Long term (current) use of anticoagulants; I11.0 Hypertensive heart disease with heart failure; G20 Parkinson's disease; N40.0 Benign prostatic hyperplasia without lower urinary tract symptoms; D72.829 Elevated white blood cell count, unspecified; I73.9 Peripheral vascular disease, unspecified; F32.A Depression, unspecified; Z86.718 Personal history of other venous thrombosis and embolism; I25.2 Old myocardial infarction; E86.0 Dehydration; I48.0 Paroxysmal atrial fibrillation; Z95.810 Presence of automatic (implantable) cardiac defibrillator
CPT/HCPCS: 36415; 70450-TC; 71045-TC-FY; 72192-TC; 74018-TC-FY; 74175-TC; 80048; 80053; 81003; 82272; 82550; 82728; 82803; 82962; 83605; 83615; 83735; 84100; 84439; 84443; 84478; 84484; 85025; 85027; 85379; 85610; 85730; 86140; 86850; 86900; 86901; 86922; 87040; 87086; 87804; 88302-TC; 93005; 93010; 97162-GP; 99291; C9803; J0131; J0282; J7168; Q9967; U0003; U0005

== ENCOUNTER 2021-10-21 11:26 | Inpatient (IN) | payer OTHER ==
[2021-10-21 11:53] VITALS: BMI 20.2
[2021-10-21] MEDS ORDERED: PIPERACILLIN/TAZOB 4.5 GM 4.5 GM in DEXTROSE 5%-WATER 100 ML IVPB ONE (13:22)
[2021-10-21] MEDS ORDERED: VANCOMYCIN 1 GM in D5W (PRE-DOCKED) 1,000 MG/250 ML IVPB ONE (13:22)
[2021-10-21] MEDS ORDERED: VANCOMYCIN 1 GRAM (PRE-DOCKED) 1,000 MG/250 ML BAG IVPB ONE (13:58)
[2021-10-21] MEDS ORDERED: PIPERACILLIN/TAZOB 4.5 GM 4.5 GM/100 ML BAG IVPB ONE ×2 (13:58→19:09)
[2021-10-21 14:13] LABS: BASO % 0.2 % (0-2.0); EOS % 0.5 % (0-4.5); HEMATOCRIT 29.6 % (35.4-49); HEMOGLOBIN 9.4 GM/dL (11.7-16.9); LYMPH % 10.6 % (8-40); MCH 26.8 pg (25.7-33.7); MCHC 31.7 g/dl (32.0-35.9); MEAN CELL VOLUME 84.6 fl (80-96); MEAN PLT VOLUME 7.9 fl (7.5-11.1); MONO % 6.5 % (3.8-10.2); NEUT % 82.2 % (42.8-82.8); PLATELET COUNT 321 10^3/uL (134-434); RDW 16.4 % (11.9-15.9); WHITE BLOOD COUNT 12.1 K/mm3 (4.0-10.0)
[2021-10-21 14:39] LABS: BLOOD UREA NITROGEN 22.8 mg/dL (7-18); CALCIUM 8.3 mg/dL (8.5-10.1)
[2021-10-21 14:40] LABS: ALBUMIN 1.6 g/dl (3.4-5.0)
[2021-10-21 14:43] LABS: CREATININE 0.6 mg/dL (0.55-1.3)
[2021-10-21 14:44] LABS: BILIRUBIN,TOTAL 0.6 mg/dL (0.2-1); TOT PROT 5.6 g/dl (6.4-8.2)
[2021-10-21] MEDS ORDERED: ACETAMINOPHEN 325 MG TABLET (FP) PO PRN (16:21)
[2021-10-21] MEDS ORDERED: METOPROLOL TARTRATE 5 MG/5 ML VIAL IVPUSH ONE (16:59)
[2021-10-21] MEDS ORDERED: METOPROLOL TARTRATE 5 MG/5 ML VIAL ONE (17:10)
[2021-10-21] MEDS: INSULIN SLIDING SCALE (NOVOLOG) 1 VIAL SQ SCH ×2 (18:56→23:25)
[2021-10-21] MEDS: PIPERACILLIN/TAZOB 4.5 GM 4.5 GM in DEXTROSE 5%-WATER 100 ML IVPB SCH (19:42)
[2021-10-21] MEDS ORDERED: PIPERACILLIN/TAZOBACTAM 4.5 GM VIAL IVPB ONE (23:16)
[2021-10-21] MEDS ORDERED: DEXTROSE 5%-WATER 100 ML IVPB ONE (23:16)
[2021-10-21] MEDS: ROSUVASTATIN CA 5 MG TABLET PO SCH (23:21)
[2021-10-21] MEDS: CARBIDOPA/LEVODOPA 25/250 TABLET (FP) PO SCH (23:22)
[2021-10-21] MEDS: ARTIFICIAL TEARS (POLYVINYL ALCOHOL) OPTH DROPS OU SCH (23:25)
[2021-10-22] MEDS: PIPERACILLIN/TAZOB 4.5 GM 4.5 GM in DEXTROSE 5%-WATER 100 ML IVPB SCH ×3 (02:34→17:22)
[2021-10-22] MEDS: CARBIDOPA/LEVODOPA 25/250 TABLET (FP) PO SCH ×4 (05:50→22:02)
[2021-10-22] MEDS: INSULIN SLIDING SCALE (NOVOLOG) 1 VIAL SQ SCH ×4 (06:22→22:07)
[2021-10-22 07:27] LABS: ALBUMIN 1.7 g/dl (3.4-5.0); BLOOD UREA NITROGEN 23.2 mg/dL (7-18); CALCIUM 8.5 mg/dL (8.5-10.1)
[2021-10-22 07:30] LABS: CREATININE 0.7 mg/dL (0.55-1.3)
[2021-10-22 07:32] LABS: BILIRUBIN,TOTAL 0.8 mg/dL (0.2-1); PROTHROMBIN TIME (PATIENT) 58.2 SEC (9.7-13.0); TOT PROT 5.7 g/dl (6.4-8.2)
[2021-10-22 07:36] LABS: HEMATOCRIT 30.1 % (35.4-49); HEMOGLOBIN 9.6 GM/dL (11.7-16.9); MEAN CELL VOLUME 84.2 fl (80-96); MEAN PLT VOLUME 7.9 fl (7.5-11.1); PLATELET COUNT 332 10^3/uL (134-434); RBC 3.57 M/mm3 (4.00-5.60); RDW 16.6 % (11.9-15.9); WHITE BLOOD COUNT 11.1 K/mm3 (4.0-10.0)
[2021-10-22 08:16] LABS: INR 4.98 (0.83-1.09)
[2021-10-22] MEDS ORDERED: PIPERACILLIN/TAZOBACTAM 4.5 GM VIAL IVPB ONE ×2 (09:46→16:59)
[2021-10-22] MEDS ORDERED: DEXTROSE 5%-WATER 100 ML IVPB ONE ×2 (09:46→17:00)
[2021-10-22] MEDS: ARTIFICIAL TEARS (POLYVINYL ALCOHOL) OPTH DROPS OU SCH ×2 (09:59→22:35)
[2021-10-22] MEDS: PANTOPRAZOLE 40 MG TABLET PO SCH (09:59)
[2021-10-22] MEDS: COLLAGENASE CLOSTRIDIUM HIST. 30 GRAMS TUBE TP SCH (10:00)
[2021-10-22] MEDS ORDERED: PHYTONADIONE 10 MG/1 ML AMP IVPB ONE (11:30)
[2021-10-22] MEDS: POTASSIUM CHLORIDE 10 MEQ in SODIUM CHLORIDE 0.45% 1,000 ML IVPB SCH (12:29)
[2021-10-22] MEDS ORDERED: METOPROLOL TARTRATE 5 MG/5 ML VIAL IVPUSH PRN (13:56)
[2021-10-22 19:25] LABS: INR 2.05 (0.83-1.09); PROTHROMBIN TIME (PATIENT) 23.8 SEC (9.7-13.0)
[2021-10-22] MEDS: ROSUVASTATIN CA 5 MG TABLET PO SCH (22:02)
[2021-10-23] MEDS ORDERED: PIPERACILLIN/TAZOBACTAM 4.5 GM VIAL IVPB ONE ×3 (01:02→18:21)
[2021-10-23] MEDS ORDERED: DEXTROSE 5%-WATER 100 ML IVPB ONE ×3 (01:02→18:22)
[2021-10-23] MEDS: PIPERACILLIN/TAZOB 4.5 GM 4.5 GM in DEXTROSE 5%-WATER 100 ML IVPB SCH ×3 (01:13→18:29)
[2021-10-23] MEDS: CARBIDOPA/LEVODOPA 25/250 TABLET (FP) PO SCH ×3 (06:21→21:41)
[2021-10-23] MEDS: INSULIN SLIDING SCALE (NOVOLOG) 1 VIAL SQ SCH ×4 (06:25→21:40)
[2021-10-23 07:49] LABS: CALCIUM 8.4 mg/dL (8.5-10.1)
[2021-10-23 07:50] LABS: ALBUMIN 1.8 g/dl (3.4-5.0); BLOOD UREA NITROGEN 22.7 mg/dL (7-18)
[2021-10-23 07:53] LABS: CREATININE 0.6 mg/dL (0.55-1.3)
[2021-10-23 07:55] LABS: BILIRUBIN,TOTAL 1.1 mg/dL (0.2-1); TOT PROT 5.6 g/dl (6.4-8.2)
[2021-10-23 09:14] LABS: BASO % 0.3 % (0-2.0); EOS % 0.9 % (0-4.5); HEMATOCRIT 30.1 % (35.4-49); HEMOGLOBIN 9.9 GM/dL (11.7-16.9); LYMPH % 10.4 % (8-40); MCH 27.5 pg (25.7-33.7); MEAN CELL VOLUME 83.2 fl (80-96); MEAN PLT VOLUME 7.7 fl (7.5-11.1); MONO % 7.2 % (3.8-10.2); NEUT % 81.2 % (42.8-82.8); PLATELET COUNT 344 10^3/uL (134-434); RBC 3.62 M/mm3 (4.00-5.60); RDW 16.6 % (11.9-15.9); WHITE BLOOD COUNT 9.5 K/mm3 (4.0-10.0)
[2021-10-23 09:20] LABS: INR 1.5 (0.83-1.09); PROTHROMBIN TIME (PATIENT) 17.3 SEC (9.7-13.0)
[2021-10-23] MEDS: POTASSIUM CHLORIDE 10 MEQ in SODIUM CHLORIDE 0.45% 1,000 ML IVPB SCH ×2 (09:32→13:43)
[2021-10-23] MEDS: PANTOPRAZOLE 40 MG TABLET PO SCH (09:32)
[2021-10-23 09:35] LABS: CALCIUM 8.9 mg/dL (8.5-10.1)
[2021-10-23] MEDS: ARTIFICIAL TEARS (POLYVINYL ALCOHOL) OPTH DROPS OU SCH ×2 (09:35→21:41)
[2021-10-23] MEDS: COLLAGENASE CLOSTRIDIUM HIST. 30 GRAMS TUBE TP SCH (09:35)
[2021-10-23 09:36] LABS: ALBUMIN 1.8 g/dl (3.4-5.0); BLOOD UREA NITROGEN 23.4 mg/dL (7-18)
[2021-10-23 09:39] LABS: CREATININE 0.7 mg/dL (0.55-1.3)
[2021-10-23 09:40] LABS: TOT PROT 5.9 g/dl (6.4-8.2)
[2021-10-23 09:41] LABS: BILIRUBIN,TOTAL 0.9 mg/dL (0.2-1)
[2021-10-23] MEDS ORDERED: metoPROLOL SUCCINATE 25 MG TAB.SR.24H (FP) PO ONE (13:15)
[2021-10-23] MEDS: ROSUVASTATIN CA 5 MG TABLET PO SCH (21:41)
[2021-10-23] MEDS ORDERED: metoPROLOL SUCCINATE 25 MG TAB.SR.24H (FP) PO SCH (22:00)
[2021-10-24] MEDS ORDERED: DEXTROSE 5%-WATER 100 ML IVPB ONE ×2 (04:18→10:18)
[2021-10-24] MEDS ORDERED: PIPERACILLIN/TAZOBACTAM 4.5 GM VIAL IVPB ONE ×2 (04:18→10:18)
[2021-10-24] MEDS: PIPERACILLIN/TAZOB 4.5 GM 4.5 GM in DEXTROSE 5%-WATER 100 ML IVPB SCH ×2 (04:25→12:16)
[2021-10-24] MEDS: CARBIDOPA/LEVODOPA 25/250 TABLET (FP) PO SCH ×3 (06:24→21:53)
[2021-10-24] MEDS: POTASSIUM CHLORIDE 10 MEQ in SODIUM CHLORIDE 0.45% 1,000 ML IVPB SCH ×2 (06:25→14:21)
[2021-10-24] MEDS: INSULIN SLIDING SCALE (NOVOLOG) 1 VIAL SQ SCH ×4 (07:12→22:24)
[2021-10-24] MEDS ORDERED: SUCCINYLCHOLINE CHLORIDE 200 MG/10 ML SYRINGE ONE (07:22)
[2021-10-24] MEDS ORDERED: ROCURONIUM BROMIDE 50 MG/5 ML SYRINGE ONE ×2 (07:22)
[2021-10-24] MEDS ORDERED: PROPOFOL 20 ML ONE ×3 (07:22→08:52)
[2021-10-24] MEDS ORDERED: DEXMEDETOMIDINE HCL 200 MCG/2 ML IVPB ONE (07:31)
[2021-10-24] MEDS ORDERED: ACETAMINOPHEN INJECTION 200 ML IVPB ONE (07:32)
[2021-10-24 07:44] LABS: CALCIUM 8.3 mg/dL (8.5-10.1)
[2021-10-24 07:45] LABS: ALBUMIN 1.7 g/dl (3.4-5.0); BLOOD UREA NITROGEN 21.3 mg/dL (7-18)
[2021-10-24 07:48] LABS: CREATININE 0.6 mg/dL (0.55-1.3)
[2021-10-24 07:50] LABS: BILIRUBIN,TOTAL 0.9 mg/dL (0.2-1); TOT PROT 5.5 g/dl (6.4-8.2)
[2021-10-24] MEDS ORDERED: ACETAMINOPHEN INJECTION 100 ML IVPB ONE (09:09)
[2021-10-24] MEDS ORDERED: KETAMINE HCL 200 MG/20 ML VIAL ONE (09:34)
[2021-10-24] MEDS ORDERED: PHENYLEPHRINE HCL 10 MG/1 ML SINGLE DOSE VIAL ONE (09:51)
[2021-10-24] MEDS ORDERED: METOPROLOL TARTRATE 5 MG/5 ML VIAL IVPUSH PRN (11:19)
[2021-10-24] MEDS: ARTIFICIAL TEARS (POLYVINYL ALCOHOL) OPTH DROPS OU SCH ×2 (12:15→21:53)
[2021-10-24] MEDS: COLLAGENASE CLOSTRIDIUM HIST. 30 GRAMS TUBE TP SCH (12:16)
[2021-10-24] MEDS: PANTOPRAZOLE 40 MG TABLET PO SCH (12:16)
[2021-10-24] MEDS ORDERED: PIPERACILLIN/TAZOB 4.5 GM 4.5 GM in DEXTROSE 5%-WATER 100 ML IVPB SCH (18:00)
[2021-10-24] MEDS: ROSUVASTATIN CA 5 MG TABLET PO SCH (21:53)
[2021-10-25] MEDS: CARBIDOPA/LEVODOPA 25/250 TABLET (FP) PO SCH ×3 (05:52→22:25)
[2021-10-25] MEDS: INSULIN SLIDING SCALE (NOVOLOG) 1 VIAL SQ SCH ×4 (06:19→22:18)
[2021-10-25] MEDS: ARTIFICIAL TEARS (POLYVINYL ALCOHOL) OPTH DROPS OU SCH ×2 (09:47→22:24)
[2021-10-25] MEDS: PANTOPRAZOLE 40 MG TABLET PO SCH (09:48)
[2021-10-25] MEDS ORDERED: DIGOXIN 0.25 MG TABLET PO ONE ×2 (09:55→16:00)
[2021-10-25] MEDS: POTASSIUM CHLORIDE 10 MEQ in SODIUM CHLORIDE 0.45% 1,000 ML IVPB SCH ×2 (12:37→21:59)
[2021-10-25] MEDS: COLLAGENASE CLOSTRIDIUM HIST. 30 GRAMS TUBE TP SCH (16:33)
[2021-10-25] MEDS: ROSUVASTATIN CA 5 MG TABLET PO SCH (22:17)
[2021-10-26] MEDS: INSULIN SLIDING SCALE (NOVOLOG) 1 VIAL SQ SCH ×4 (07:34→21:32)
[2021-10-26] MEDS: CARBIDOPA/LEVODOPA 25/250 TABLET (FP) PO SCH ×3 (07:35→21:25)
[2021-10-26 08:13] LABS: CALCIUM 7.8 mg/dL (8.5-10.1)
[2021-10-26 08:14] LABS: ALBUMIN 1.4 g/dl (3.4-5.0); BLOOD UREA NITROGEN 16.1 mg/dL (7-18)
[2021-10-26 08:17] LABS: CREATININE 0.6 mg/dL (0.55-1.3)
[2021-10-26 08:18] LABS: BILIRUBIN,TOTAL 0.7 mg/dL (0.2-1); TOT PROT 5.2 g/dl (6.4-8.2)
[2021-10-26] MEDS: DIGOXIN 0.125 MG TABLET PO SCH (09:36)
[2021-10-26] MEDS: PANTOPRAZOLE 40 MG TABLET PO SCH (09:36)
[2021-10-26] MEDS: ARTIFICIAL TEARS (POLYVINYL ALCOHOL) OPTH DROPS OU SCH ×2 (09:37→21:24)
[2021-10-26] MEDS: COLLAGENASE CLOSTRIDIUM HIST. 30 GRAMS TUBE TP SCH (10:43)
[2021-10-26] MEDS: METOPROLOL TARTRATE 50 MG TABLET (FP) PO SCH ×2 (13:36→21:24)
[2021-10-26] MEDS: POTASSIUM CHLORIDE 10 MEQ in SODIUM CHLORIDE 0.45% 1,000 ML IVPB SCH ×2 (16:32→21:25)
[2021-10-26] MEDS: AMINO ACIDS/PROTEIN HYDROLYS 30 ML LIQUID.PKT PO SCH (16:44)
[2021-10-26] MEDS: ROSUVASTATIN CA 5 MG TABLET PO SCH (21:24)
[2021-10-27] MEDS: CARBIDOPA/LEVODOPA 25/250 TABLET (FP) PO SCH ×3 (05:54→21:26)
[2021-10-27] MEDS: METOPROLOL TARTRATE 50 MG TABLET (FP) PO SCH ×3 (05:54→21:26)
[2021-10-27] MEDS: INSULIN SLIDING SCALE (NOVOLOG) 1 VIAL SQ SCH ×4 (06:16→21:29)
[2021-10-27] MEDS: AMINO ACIDS/PROTEIN HYDROLYS 30 ML LIQUID.PKT PO SCH ×3 (09:56→18:25)
[2021-10-27] MEDS: PANTOPRAZOLE 40 MG TABLET PO SCH (09:57)
[2021-10-27] MEDS: DIGOXIN 0.125 MG TABLET PO SCH (09:57)
[2021-10-27] MEDS: ARTIFICIAL TEARS (POLYVINYL ALCOHOL) OPTH DROPS OU SCH ×2 (10:01→21:31)
[2021-10-27] MEDS: COLLAGENASE CLOSTRIDIUM HIST. 30 GRAMS TUBE TP SCH (10:01)
[2021-10-27 10:42] LABS: HEMATOCRIT 30.3 % (35.4-49); HEMOGLOBIN 9.6 GM/dL (11.7-16.9); MCHC 31.7 g/dl (32.0-35.9); MEAN CELL VOLUME 85.4 fl (80-96); MEAN PLT VOLUME 8.2 fl (7.5-11.1); PLATELET COUNT 292 10^3/uL (134-434); RBC 3.54 M/mm3 (4.00-5.60); RDW 17.5 % (11.9-15.9); WHITE BLOOD COUNT 8.5 K/mm3 (4.0-10.0)
[2021-10-27 11:03] LABS: CALCIUM 8.4 mg/dL (8.5-10.1); MAGNESIUM 1.9 mg/dL (1.8-2.4)
[2021-10-27 11:07] LABS: CREATININE 0.6 mg/dL (0.55-1.3)
[2021-10-27 11:08] LABS: BILIRUBIN,TOTAL 0.6 mg/dL (0.2-1); TOT PROT 5.6 g/dl (6.4-8.2)
[2021-10-27 11:10] LABS: ALBUMIN 1.8 g/dl (3.4-5.0)
[2021-10-27] MEDS: POTASSIUM CHLORIDE 10 MEQ in SODIUM CHLORIDE 0.45% 1,000 ML IVPB SCH ×2 (12:12→12:30)
[2021-10-27] MEDS: ACETAMINOPHEN 325 MG TABLET (FP) PO PRN (12:29)
[2021-10-27] MEDS ORDERED: WARFARIN NA 3 MG TABLET PO ONE (18:43)
[2021-10-27] MEDS: ROSUVASTATIN CA 5 MG TABLET PO SCH (21:26)
[2021-10-28] MEDS: POTASSIUM CHLORIDE 10 MEQ in SODIUM CHLORIDE 0.45% 1,000 ML IVPB SCH (03:29)
[2021-10-28] MEDS: ACETAMINOPHEN 325 MG TABLET (FP) PO PRN ×2 (04:46→20:29)
[2021-10-28] MEDS: CARBIDOPA/LEVODOPA 25/250 TABLET (FP) PO SCH ×3 (05:57→21:22)
[2021-10-28] MEDS: METOPROLOL TARTRATE 50 MG TABLET (FP) PO SCH ×3 (05:57→21:22)
[2021-10-28] MEDS: INSULIN SLIDING SCALE (NOVOLOG) 1 VIAL SQ SCH ×4 (06:12→21:26)
[2021-10-28 07:56] LABS: INR 2.87 (0.83-1.09); PROTHROMBIN TIME (PATIENT) 33.3 SEC (9.7-13.0)
[2021-10-28] MEDS: AMINO ACIDS/PROTEIN HYDROLYS 30 ML LIQUID.PKT PO SCH ×3 (09:00→17:24)
[2021-10-28] MEDS: ARTIFICIAL TEARS (POLYVINYL ALCOHOL) OPTH DROPS OU SCH ×2 (09:45→21:22)
[2021-10-28] MEDS: PANTOPRAZOLE 40 MG TABLET PO SCH (09:45)
[2021-10-28] MEDS: APIXABAN 2.5 MG TABLET PO SCH ×2 (09:45→21:22)
[2021-10-28] MEDS: DIGOXIN 0.125 MG TABLET PO SCH (09:45)
[2021-10-28] MEDS ORDERED: ERTAPENEM SODIUM 1 GM in SODIUM CHLORIDE 50 ML IVPB SCH (10:00)
[2021-10-28] MEDS ORDERED: ONDANSETRON 4 MG TABLET PO PRN (11:53)
[2021-10-28] MEDS: ERTAPENEM SODIUM 1 GM in SODIUM CHLORIDE 50 ML IVPB SCH (12:06)
[2021-10-28] MEDS: COLLAGENASE CLOSTRIDIUM HIST. 30 GRAMS TUBE TP SCH (12:06)
[2021-10-28] MEDS ORDERED: WARFARIN NA 2 MG TABLET PO SCH (18:00)
[2021-10-28] MEDS: ROSUVASTATIN CA 5 MG TABLET PO SCH (21:22)
[2021-10-29] MEDS: METOPROLOL TARTRATE 50 MG TABLET (FP) PO SCH ×3 (06:12→21:52)
[2021-10-29] MEDS: CARBIDOPA/LEVODOPA 25/250 TABLET (FP) PO SCH ×3 (06:12→21:53)
[2021-10-29] MEDS: INSULIN SLIDING SCALE (NOVOLOG) 1 VIAL SQ SCH ×4 (06:55→21:57)
[2021-10-29] MEDS: AMINO ACIDS/PROTEIN HYDROLYS 30 ML LIQUID.PKT PO SCH ×3 (10:49→17:24)
[2021-10-29] MEDS: ARTIFICIAL TEARS (POLYVINYL ALCOHOL) OPTH DROPS OU SCH ×2 (10:49→21:52)
[2021-10-29] MEDS: COLLAGENASE CLOSTRIDIUM HIST. 30 GRAMS TUBE TP SCH (10:49)
[2021-10-29] MEDS: APIXABAN 2.5 MG TABLET PO SCH ×2 (10:50→21:52)
[2021-10-29] MEDS: DIGOXIN 0.125 MG TABLET PO SCH (10:50)
[2021-10-29] MEDS: PANTOPRAZOLE 40 MG TABLET PO SCH (10:51)
[2021-10-29] MEDS: ERTAPENEM SODIUM 1 GM in SODIUM CHLORIDE 50 ML IVPB SCH (12:00)
[2021-10-29 16:09] LABS: SARS-CoV-2 NAA Not Detected (Not Detected)
[2021-10-29] MEDS: ACETAMINOPHEN 325 MG TABLET (FP) PO PRN (18:53)
[2021-10-29] MEDS: ROSUVASTATIN CA 5 MG TABLET PO SCH (21:52)
[2021-10-30] MEDS: METOPROLOL TARTRATE 50 MG TABLET (FP) PO SCH ×2 (06:36→14:29)
[2021-10-30] MEDS: CARBIDOPA/LEVODOPA 25/250 TABLET (FP) PO SCH ×2 (06:36→14:29)
[2021-10-30] MEDS: INSULIN SLIDING SCALE (NOVOLOG) 1 VIAL SQ SCH ×2 (06:37→11:30)
[2021-10-30 08:43] VITALS: BP 78/46; TEMP 98.5
[2021-10-30] MEDS: ERTAPENEM SODIUM 1 GM in SODIUM CHLORIDE 50 ML IVPB SCH (09:32)
[2021-10-30] MEDS: PANTOPRAZOLE 40 MG TABLET PO SCH (09:32)
[2021-10-30] MEDS: APIXABAN 2.5 MG TABLET PO SCH (09:32)
[2021-10-30] MEDS: AMINO ACIDS/PROTEIN HYDROLYS 30 ML LIQUID.PKT PO SCH ×2 (09:32→14:29)
[2021-10-30] MEDS: DIGOXIN 0.125 MG TABLET PO SCH (09:32)
[2021-10-30 09:38] VITALS: PULSE 98
[2021-10-30] MEDS: ARTIFICIAL TEARS (POLYVINYL ALCOHOL) OPTH DROPS OU SCH (10:30)
== END 2021-10-30 17:04 | disposition hospice, inpatient (51) | DRG 570 ==
LOC: JER 11:26 → JERBED 13:21 → J4W 20:29
PROVIDERS: ADMIT Family Medicine; ATTEND Family Medicine
PROC: 0JB70ZZ Excision of Back Subcutaneous Tissue and Fascia, Open Approach (ICD-10-PCS; 2021-10-24)
PROC: 0QB10ZZ Excision of Sacrum, Open Approach (ICD-10-PCS; 2021-10-24)
PROC: 2W15X6Z Compression of Back using Pressure Dressing (ICD-10-PCS; 2021-10-24)
PROC: 02HV33Z Insertion of Infusion Device into Superior Vena Cava, Percutaneous Approach (ICD-10-PCS; principal; 2021-10-28)
PROC: B518ZZA Fluoroscopy of Superior Vena Cava, Guidance (ICD-10-PCS; 2021-10-28)
PROC: 0Y9D0ZX Drainage of Left Upper Leg, Open Approach, Diagnostic (ICD-10-PCS; 2021-10-28)
DX: L89.154 Pressure ulcer of sacral region, stage 4 (principal); R53.2 Functional quadriplegia; R64 Cachexia; L97.409 Non-pressure chronic ulcer of unspecified heel and midfoot with unspecified severity; I50.22 Chronic systolic (congestive) heart failure; I31.3 Pericardial effusion (noninflammatory); L02.416 Cutaneous abscess of left lower limb; I96 Gangrene, not elsewhere classified; E11.52 Type 2 diabetes mellitus with diabetic peripheral angiopathy with gangrene; I48.91 Unspecified atrial fibrillation; G20 Parkinson's disease; E11.9 Type 2 diabetes mellitus without complications; Z68.20 Body mass index [BMI] 20.0-20.9, adult; I11.0 Hypertensive heart disease with heart failure; N40.0 Benign prostatic hyperplasia without lower urinary tract symptoms; K40.90 Unilateral inguinal hernia, without obstruction or gangrene, not specified as recurrent; E86.0 Dehydration; I48.0 Paroxysmal atrial fibrillation; R00.0 Tachycardia, unspecified; L08.9 Local infection of the skin and subcutaneous tissue, unspecified; L89.90 Pressure ulcer of unspecified site, unspecified stage; R62.7 Adult failure to thrive; B96.20 Unspecified Escherichia coli [E. coli] as the cause of diseases classified elsewhere; B96.4 Proteus (mirabilis) (morganii) as the cause of diseases classified elsewhere; B95.2 Enterococcus as the cause of diseases classified elsewhere; R13.10 Dysphagia, unspecified; F03.90 Unspecified dementia, unspecified severity, without behavioral disturbance, psychotic disturbance, mood disturbance, and anxiety; Z95.810 Presence of automatic (implantable) cardiac defibrillator; Z74.01 Bed confinement status
CPT/HCPCS: 36415; 36430; 36569; 77001-TC-FY; 80048; 80053; 80162; 82962; 83036; 83605; 83735; 85025; 85027; 85610; 86850; 86900; 86901; 87040; 87070; 87075; 87186; 87205; 88304-TC; 93005; 93010; 94760; 99285-25; C1751; C9803-CS; P9017; U0003; U0005